=== PATIENT | female | born 2000 | race Caucasian/White ===

== ENCOUNTER → 2019-10-10 | Outpatient (CLI) | payer OTHER ==
[2019-10-10 13:18] LABS: HEMATOCRIT 39.4 % (36.0-47.0); HEMOGLOBIN 13.5 g/dl (12.0-15.5); MEAN CORPUSCULAR HEMOGLOBIN 30.1 pg (27.0-33.0); MEAN CORPUSCULAR HGB CONC 34.3 g/dl (32.0-36.5); MEAN CORPUSCULAR VOLUME 87.9 fl (80.0-96.0); PLATELET COUNT, AUTOMATED 316 10^3/uL (150-450); RED BLOOD COUNT 4.48 10^6/uL (4.00-5.40); WHITE BLOOD COUNT 14.6 10^3/uL (4.0-10.0)
== END ==
LOC: M LAB 11:44
PROVIDERS: ATTEND Obstetrics & Gynecology
DX: Z34.83 Encounter for supervision of other normal pregnancy, third trimester (principal)

== ENCOUNTER 2019-10-31 21:49 | Inpatient (IN) | payer OTHER ==
[~2019-10-31] VITALS: Ht 170.2 cm; Wt 133.2 kg
[2019-10-31 22:09] VITALS: BP 170/91
[2019-10-31] MEDS ORDERED: PRENTAB9 PO (22:14)
[2019-10-31 22:25] VITALS: BP 173/87
[2019-10-31] MEDS ORDERED: LR 1,000 ML IV SCH (22:30)
[2019-10-31 22:40] VITALS: BP 186/88
[2019-10-31 22:56] VITALS: BP 175/98
[2019-10-31] MEDS ORDERED: NS 1,000 ML IV STA (23:08)
[2019-10-31] MEDS ORDERED: LABETALOL 100MG/20ML VIAL IV STA (23:08)
[2019-10-31] MEDS ORDERED: HumuLIN R (REGULAR) INSULIN (NovoLIN R) **100U/ML** PER UNIT SC STA (23:08)
[2019-10-31 23:25] VITALS: BP 167/106
[2019-10-31 23:29] LABS: HEMATOCRIT 38.7 % (36.0-47.0); MEAN CORPUSCULAR HEMOGLOBIN 29.2 pg (27.0-33.0); MEAN CORPUSCULAR HGB CONC 33.6 g/dl (32.0-36.5); PLATELET COUNT, AUTOMATED 284 10^3/uL (150-450); RED BLOOD COUNT 4.45 10^6/uL (4.00-5.40); WHITE BLOOD COUNT 12.4 10^3/uL (4.0-10.0)
[2019-10-31 23:59] VITALS: BP 147/76
[2019-11-01] VITALS (46 sets, daily range): BP systolic 105–181; BP diastolic 53–103
[2019-11-01 00:01] LABS: ALBUMIN 2.5 GM/DL (3.2-5.2); ALT/SGPT 17 U/L (12-78); BILIRUBIN,TOTAL 0.2 MG/DL (0.2-1.0); BLOOD UREA NITROGEN 15 MG/DL (7-18); CALCIUM LEVEL 8.8 MG/DL (8.5-10.1); CARBON DIOXIDE LEVEL 20 MEQ/L (21-32); CHLORIDE LEVEL 108 MEQ/L (98-107); CREATININE FOR GFR 0.79 MG/DL (0.55-1.30); GLOMERULAR FILTRATION RATE > 60.0 (>60); GLUCOSE, FASTING 201 MG/DL (70-100); POTASSIUM SERUM 4.8 MEQ/L (3.5-5.1); SODIUM LEVEL 138 MEQ/L (136-145); TOTAL PROTEIN 6.3 GM/DL (6.4-8.2)
[2019-11-01] MEDS ORDERED: CALCIUM CARBONATE 500 MG CHEW U/D As Ordered ONE (03:26)
[2019-11-01] MEDS ORDERED: ACETAMINOPHEN 500 MG TAB As Ordered ONE (03:26)
[2019-11-01] MEDS ORDERED: CALCIUM CARBONATE 500 MG CHEW U/D PO ONE (03:30)
[2019-11-01] MEDS ORDERED: ACETAMINOPHEN 500 MG TAB PO ONE (03:30)
[2019-11-01] MEDS ORDERED: HumuLIN R (REGULAR) INSULIN (NovoLIN R) **100U/ML** PER UNIT SC STA (06:24)
[2019-11-01] MEDS ORDERED: BICITRA 30ML SOLN UDC PO ONE (07:00)
[2019-11-01] MEDS ORDERED: ceFAZolin SOD 2 GM in IV 1 EA IV ONE (07:00)
[2019-11-01] MEDS ORDERED: AZITHROMYCIN INJ 500 MG, VIAL MATE ADAPTER 1 EACH in D5W 250 ML IV ONE (07:00)
[2019-11-01 07:12] LABS: BASO % 0.2 % (0.0-1.0); EOS # 0.1 10^3/uL (0.0-0.5); EOS % 0.9 % (0.0-3.0); HEMATOCRIT 33.8 % (36.0-47.0); HEMOGLOBIN 11.4 g/dl (12.0-15.5); LYMPH % 23.8 % (24.0-44.0); MEAN CORPUSCULAR HEMOGLOBIN 30.2 pg (27.0-33.0); MEAN CORPUSCULAR HGB CONC 33.7 g/dl (32.0-36.5); MEAN CORPUSCULAR VOLUME 89.4 fl (80.0-96.0); MONO # 0.8 10^3/uL (0.0-0.8); MONO % 6.5 % (0.0-5.0); NEUTROPHILS # 8.7 10^3/uL (1.5-8.5); NEUTROPHILS % 68.1 % (36.0-66.0); PLATELET COUNT, AUTOMATED 235 10^3/uL (150-450); RED BLOOD COUNT 3.78 10^6/uL (4.00-5.40); WHITE BLOOD COUNT 12.8 10^3/uL (4.0-10.0)
[2019-11-01 07:21] LABS: ALT/SGPT 17 U/L (12-78); BILIRUBIN,TOTAL 0.1 MG/DL (0.2-1.0); GLOMERULAR FILTRATION RATE > 60.0 (>60); LDH LACTATE DEHYDROGENASE 203 U/L (84-246); URIC ACID 5.2 MG/DL (2.6-6.0)
[2019-11-01 07:42] LABS: AMPHETAMINES URINE REFLEX NEGATIVE (NEGATIVE); BARBITURATES URINE REFLEX NEGATIVE (NEGATIVE); BENZODIAZEPINES URINE REFLEX NEGATIVE (NEGATIVE); CANNABINOIDS URINE REFLEX NEGATIVE (NEGATIVE); COCAINE METABOLITE URINE REFLE NEGATIVE (NEGATIVE); METHADONE URINE REFLEX NEGATIVE (NEGATIVE); OPIATES URINE REFLEX NEGATIVE (NEGATIVE); PHENCYCLIDINE URINE REFLEX NEGATIVE (NEGATIVE)
[2019-11-01] MEDS ORDERED: NS 1,000 ML IV SCH (08:45)
[2019-11-01] MEDS ORDERED: INSULIN IV RATE CHANGE DOCUMENTATION ML/HR XX SCH (08:45)
[2019-11-01] MEDS ORDERED: INSULIN HUMAN REGULAR 100 UNITS in NS 99 ML IV SCH (08:45)
[2019-11-01] MEDS ORDERED: LABETALOL 100 MG TAB PO SCH (09:00)
[2019-11-01] MEDS: INSULIN HUMAN REGULAR 100 UNITS in NS 99 ML IV SCH ×2 (09:27→12:02)
--- NOTE | 2019-11-01 09:52 | HPE ---
DATE OF ADMISSION: 11/01/2019 HISTORY: Merna is a 19-year-old female, 1, para 0, with an expected date of confinement (EDC) of 12/10/2019 based on an 8 week 1 day ultrasound, with estimated gestational age (EGA) 34-2/7 weeks gestation who presented to labor and delivery with complaints of not feeling well with severe headache. The patient has a history of gestational diabetes for which she is very noncompliant. She recently had a 24-hour urine collection that shows an elevated urine total protein of 1073. Upon evaluation in labor and delivery, she was found to have severely elevated blood pressures in the range of 167/106, 175/98 and 186/88. She received one dose of IV labetalol in labor and delivery. Her blood pressure did drop to 147/76 after that dose. Her headache continued. Upon further evaluation, she was found to have an elevated AST at 38 and a spot creatinine protein ratio of 0.5. Given this finding, decision was made to admit the patient. Her full record was reviewed. The patient has had extensive counseling in the office and she had many times requested delivery via section and even though the risks and benefits were discussed with her she was pretty adamant that she wanted to have delivery via section. LABS: Reviewed. Blood type blood type is A+. Rubella immune. Hepatitis negative. HIV negative. GC and chlamydia negative. GBS unknown. PAST MEDICAL HISTORY: Significant for asthma and prior history of meningitis. PAST SURGICAL HISTORY: Tonsillectomy, cholecystectomy, excision of an ovarian cyst, and appendectomy. FAMILY HISTORY: Significant for polycystic ovarian syndrome and meningitis as well as diabetes and muscular dystrophy. SOCIAL HISTORY: The patient denies any alcohol, drug or cigarette smoking. REVIEW OF SYSTEMS: Significant for the severe headache, not improving with the usual Tylenol and Fioricet. MEDICATIONS: - vitamin ALLERGIES: - ADVIL - BLUE DYE PHYSICAL EXAMINATION: Vital Signs on Admission: Blood pressure 167/106, pulse of 94, respirations 18. Her sugar was 201. On physical exam, an obese female in no acute distress. HEENT: Grossly within normal limits. Abdomen: Soft, nontender, nondistended. Extremities: No clubbing or cyanosis. +1 to +2 lower extremity edema. Deep tendon reflexes 2/4 bilaterally. Vaginal Exam: Cervix is closed, thick and posterior. The fetus at -3 to -4 in a vertex position. LABS: Reviewed. Glucose 201, uric acid of 5, AST of 38, ALT of 17, WBC of 12.4 and platelet of 284. Spot creatinine and protein ratio 0.5, total protein on 24- hour urine specimen resulted on 10/31/2019 was 1073. ASSESSMENT: 1. Severe preeclampsia, remote from delivery. 2. Gestational diabetes, noncompliant. 3. Obesity. 4. Requesting delivery via primary section. PLAN: The patient is being admitted to labor and delivery. A phone consult was done with Dr. Kruger at the center and the case discussed in detail. We both agreed not to proceed with steroids at this point given the patient's status and gestational age. Given that she has severe preeclampsia and remote from delivery and her request for delivery via primary section, we will proceed with delivery via primary section. Labetalol 100 mg twice a day will be started while we wait for the section. If the patient's blood pressures increase in the severe range, will consider IV labetalol or labetalol IV drip. The case was discussed with the patient in great details, the risks and benefits of delivery discussed, especially in light of prematurity and her history of diabetes. Neonatology notified. Will await delivery. THEO
[2019-11-01] MEDS ORDERED: KETOROLAC 60 MG/2 ML VIAL As Ordered ONE (09:53)
[2019-11-01] MEDS ORDERED: ONDANSETRON 4MG/2ML VIAL As Ordered ONE (09:53)
[2019-11-01] MEDS ORDERED: OXYTOCIN INJ 10 UNITS/ML VIAL (J2590) As Ordered ONE (09:53)
[2019-11-01] MEDS ORDERED: fentaNYL 100 MCG/2 ML INJECTION (J3010) As Ordered ONE (09:53)
[2019-11-01] MEDS ORDERED: dexameTHASONE 4 MG/ML 1ML VIAL (J1100 PER 1MG) As Ordered ONE (09:53)
[2019-11-01] MEDS ORDERED: MORPHINE PRES-FREE INJ 10 MG/10 ML VIAL (J2274) As Ordered ONE (09:54)
[2019-11-01] MEDS ORDERED: MEASLES,MUMPS,RUBELLA VACCINE INJ (MMR-II) (90707) SC SCH (10:45)
[2019-11-01] MEDS ORDERED: MOM 30ML SUSPENSION UDC PO PRN (10:45)
[2019-11-01] MEDS ORDERED: PERCOCET 5MG/325MG TAB PO PRN ×2 (10:45→12:30)
[2019-11-01] MEDS ORDERED: RHOGAM 300 MCG (1500 IU) INJ (J2790) IM SCH (10:45)
[2019-11-01] MEDS ORDERED: NALOXONE INJ 0.4MG/1ML VIAL (J2310 PER 1MG) IV PRN ×2 (10:56)
[2019-11-01] MEDS ORDERED: diphenhydrAMINE 50MG/ML VIAL (J1200) IV PRN (10:56)
[2019-11-01] MEDS ORDERED: NALBUPHINE HCL 10 MG/ML AMP (J2300) IV PRN (10:56)
[2019-11-01] MEDS ORDERED: ONDANSETRON 4MG/2ML VIAL IV PRN ×2 (10:56→12:30)
[2019-11-01] MEDS ORDERED: METOCLOPRAMIDE INJ 10MG/2ML VIAL (J2765 PER 1) IV PRN (10:56)
[2019-11-01] MEDS ORDERED: ATROPINE SULF 0.4 MG/ML 1ML VIAL (J0461) As Ordered ONE (11:20)
[2019-11-01] MEDS ORDERED: ePHEDrine SULFATE 25 MG/5 ML(5MG/ML) SYRINGE As Ordered ONE (11:20)
[2019-11-01 11:22] LABS: CORD GAS ABE A -7.5; CORD GAS ABE V -3.9; CORD GAS HCO3 V 23.8 MEQ/L; CORD GAS O2 SAT A 28.6 %; CORD GAS O2 SAT V 43.7 %; CORD GAS PCO2 A 62.1 mmHg; CORD GAS PCO2 V 53.7 mmHg; CORD GAS PH A 7.167 UNITS; CORD GAS PH V 7.265 UNITS; CORD GAS PO2 A 18.4 mmHg; CORD GAS PO2 V 21.9 mmHg; CORD GAS TCO2 A 23.9 MEQ/L; CORD GAS TCO2 V 25.5 MEQ/L
[2019-11-01] MEDS ORDERED: MAGNESIUM SULFATE 4% INJ 20GM/500ML (40MG/ML) As Ordered ONE (11:50)
[2019-11-01] MEDS: MAG Sulf (OBGYN) 20GM/500ML 20,000 MG in IV 1 EA IV SCH ×2 (11:59→22:08)
[2019-11-01] MEDS ORDERED: LR 1,000 ML IV SCH (12:30)
[2019-11-01] MEDS ORDERED: fentaNYL 100 MCG/2 ML INJECTION (J3010) IV PRN (12:30)
[2019-11-01] MEDS: PERCOCET 5MG/325MG TAB PO PRN ×2 (14:30→20:17)
[2019-11-01] MEDS: DOCUSATE SODIUM 100 MG CAP PO SCH (20:16)
[2019-11-01] MEDS: LABETALOL 100 MG TAB PO SCH (20:16)
[2019-11-01] MEDS: HEPARIN SOD (PORCINE) 5000UNITS/ML VIAL (J1644 PER 1000UNITS) SQ SCH (22:11)
[2019-11-01] MEDS: IBUPROFEN 800 MG TAB PO SCH (22:42)
[2019-11-02] VITALS (16 sets, daily range): BP systolic 117–143; BP diastolic 55–67
[2019-11-02] MEDS: PERCOCET 5MG/325MG TAB PO PRN ×3 (02:21→15:06)
[2019-11-02 06:17] LABS: HEMATOCRIT 33.1 % (36.0-47.0); HEMOGLOBIN 11.4 g/dl (12.0-15.5); MEAN CORPUSCULAR HEMOGLOBIN 30.6 pg (27.0-33.0); MEAN CORPUSCULAR HGB CONC 34.4 g/dl (32.0-36.5); MEAN CORPUSCULAR VOLUME 88.7 fl (80.0-96.0); PLATELET COUNT, AUTOMATED 246 10^3/uL (150-450); RED BLOOD COUNT 3.73 10^6/uL (4.00-5.40); WHITE BLOOD COUNT 11.7 10^3/uL (4.0-10.0)
[2019-11-02] MEDS: IBUPROFEN 800 MG TAB PO SCH ×2 (06:33→13:35)
[2019-11-02] MEDS: MAG Sulf (OBGYN) 20GM/500ML 20,000 MG in IV 1 EA IV SCH (07:37)
[2019-11-02] MEDS: HEPARIN SOD (PORCINE) 5000UNITS/ML VIAL (J1644 PER 1000UNITS) SQ SCH ×3 (09:00→21:01)
[2019-11-02] MEDS: PRENATAL VITAMINS CHEWABLE TABLET PO SCH (09:03)
[2019-11-02] MEDS: DOCUSATE SODIUM 100 MG CAP PO SCH ×2 (09:05→21:00)
[2019-11-02] MEDS: LABETALOL 100 MG TAB PO SCH ×2 (09:05→21:00)
[2019-11-02] MEDS: MORPHINE 4 MG/ML 1ML VIAL/SYRINGE (J2270) IV PRN ×2 (18:18→20:27)
[2019-11-02] MEDS ORDERED: KETOROLAC 60 MG/2 ML VIAL IM PRN (21:15)
[2019-11-02] MEDS: KETOROLAC 30 MG/ML 1ML VIAL IM PRN (21:45)
[2019-11-03] MEDS: PERCOCET 5MG/325MG TAB PO PRN ×2 (00:10→07:22)
[2019-11-03 02:40] VITALS: BP 121/65
[2019-11-03] MEDS: KETOROLAC 30 MG/ML 1ML VIAL IM PRN ×2 (04:07→10:16)
[2019-11-03 05:51] VITALS: BP 132/78
[2019-11-03] MEDS ORDERED: DOCU100C16 PO (09:23)
[2019-11-03] MEDS ORDERED: ONDA-83 PO (09:23)
[2019-11-03] MEDS ORDERED: PERCOCET PO (09:23)
[2019-11-03] MEDS ORDERED: IBUP80TA PO (09:23)
[2019-11-03] MEDS: LABETALOL 100 MG TAB PO SCH (09:25)
[2019-11-03] MEDS ORDERED: BUSP5TA PO (09:25)
[2019-11-03] MEDS: PRENATAL VITAMINS CHEWABLE TABLET PO SCH (09:25)
[2019-11-03] MEDS ORDERED: LABE10TAB PO (09:25)
[2019-11-03] MEDS: DOCUSATE SODIUM 100 MG CAP PO SCH (09:25)
[2019-11-03] MEDS: HEPARIN SOD (PORCINE) 5000UNITS/ML VIAL (J1644 PER 1000UNITS) SQ SCH (09:25)
[2019-11-03 09:29] VITALS: BP 137/73
[2019-11-03] MEDS ORDERED: busPIRone 5 MG TAB PO ONE (10:00)
[2019-11-03] MEDS ORDERED: IBUPROFEN 800 MG TAB PO SCH (18:00)
--- NOTE | 2019-11-05 15:58 | RO ---
DATE OF PROCEDURE: 11/01/2019 Merna is a 19-year-old female, 1, para 0, was admitted at 34-2/7 weeks gestation with a history of gestational diabetes, noncompliant, now developed severe preeclampsia remote from delivery. After extensive counseling in center consult a decision was made to proceed with delivery via section. PREOPERATIVE DIAGNOSES: 1. Intrauterine at 34-2/7 weeks gestation. 2. Severe preeclampsia remote from delivery. 3. Gestational diabetes, noncompliance. POSTOPERATIVE DIAGNOSES: 1. Intrauterine at 34-2/7 weeks gestation. 2. Severe preeclampsia remote from delivery. 3. Gestational diabetes, noncompliance. PROCEDURE: Primary low transverse section via Pfannenstiel incision. ANESTHESIA: Spinal. SURGEON: Dr. Matta DEALER ACCOUNTS INVESTIGATOR: Dr. Santo COMPLICATIONS: None. ESTIMATED BLOOD LOSS: 500 mL. FINDINGS: Live male infant in occiput transverse position with a cord around the body times one. 8, 9. weight 7 pounds 15 ounces. Normal-appearing placenta. Normal tubes and ovaries. DESCRIPTION OF PROCEDURE: After obtaining informed consent, the patient was taken to the operating room where spinal anesthetic was found to be adequate. She was then draped and prepped in the usual sterile fashion in the supine position. At this point, with the help of Kiara Santo MD, the incision was carried down to the fascia. Fascia was incised in midline fashion and carried through laterally. Superior aspect of the fascia was then grasped with Rochelle clamps, tented off and dissected off the rectus muscle sharply. The inferior aspect was dissected off in a similar fashion. Rectus muscles midline fashion. Perineum identified. Peritoneal cavity entered bluntly. Superior and inferior dissection of the peritoneum was then done with good visualization of the bladder. At this point, a Mobius skin retractor was placed. A low transverse uterine incision was made. was delivered in atraumatic fashion. Nose and mouth bulb suctioned. Cord doubly clamped and cut, and was handed over to the waiting warmer. Cord blood and cord gas were sent. Placenta removed manually. Uterus cleared of all clot and debris, and the uterine incision was then repaired in two separate layers of #0 Vicryl sutures. All superficial bleeders coagulated. Pelvis copiously irrigated with normal saline. Peritoneum closed in a running fashion using #2-0 Vicryl. Fascia closed in two separate segment of #0 Vicryl sutures. Steri-Strips placed. The patient tolerated procedure well. She was then transferred to recovery room in stable condition.
== END 2019-11-03 12:30 | disposition home or self-care (01) | DRG 773 ==
LOC: M LDO 21:49 → M LDI 11-01 07:09 → M OBS 11-02 14:17
PROVIDERS: ADMIT Obstetrics & Gynecology; ATTEND Obstetrics & Gynecology
PROC: 10D00Z1 Extraction of Products of Conception, Low, Open Approach (ICD-10-PCS; principal; 2019-11-01 11:18)
DX: O14.14 Severe pre-eclampsia complicating childbirth (principal); Z3A.34 34 weeks gestation of pregnancy; O24.429 Gestational diabetes mellitus in childbirth, unspecified control; O99.214 Obesity complicating childbirth; E66.9 Obesity, unspecified; Z91.19 Patient's noncompliance with other medical treatment and regimen; Z37.0 Single live birth; O69.82X0 Labor and delivery complicated by other cord entanglement, without compression, not applicable or unspecified; O32.2XX0 Maternal care for transverse and oblique lie, not applicable or unspecified

== ENCOUNTER → 2019-10-31 | Outpatient (REF) | payer OTHER ==
[~2019-10-31] MED LIST: BUSP5TA PO; DOCU100C16 PO; IBUP80TA PO; LABE10TAB PO; ONDA-83 PO; PERCOCET PO; PRENTAB9 PO
[2019-10-31 19:53] LABS: URINE TOTAL PROTEIN 107.3 MG/DL (0-12)
== END ==
LOC: M LAB REF 17:30
PROVIDERS: ATTEND Obstetrics & Gynecology
DX: O24.410 Gestational diabetes mellitus in pregnancy, diet controlled (principal); R80.9 Proteinuria, unspecified

== ENCOUNTER 2020-08-01 19:26 | Emergency (ER) | payer OTHER ==
[~2020-08-01] VITALS: Ht 170.2 cm; Wt 115.9 kg
[~2020-08-01 19:26] MED LIST changes: +LABE100T4 PO; -LABE10TAB PO
--- OUTSIDE RECORDS SUMMARY | 2020-08-01 19:33 | CCD | Continuity of Care Document ---
Author Author Merna PRESTON MD Organization Unknown Address [address] [place] [address] Phone [phone] Care Team Providers Care Computer Systems Auditor Name Role Phone Kody MattaM [phone] Problems Active Problems Provider Date Polycystic ovary syndrome Myranda Preston MD Onset: 020 Social History Type Date Description Comments Sex Unknown Tobacco Use Start: Unknown Never Smoked Cigarettes ETOH Use Occasionally consumes alcohol Allergies, Adverse Reactions, Alerts Description No Known Drug Allergies Medications Active Medications SIG Qnty Indications Ordering Provide r Date Metformin HCL ER 500mg Tablets ER 24HR 4 tab by mouth daily 360tabs E28.2 Myranda Preston MD 0 Zovia 35 (28) 1-35mg-mcg Tablets 1 po daily 168tabs E28.2 Myranda Preston MD 06/18/2020 Prozac 20mg Capsules 1 by mouth every day Unknown Immunizations Description No Information Available Vital Signs Date Vital Result Comment 06/18/2020 3:01pm BP Systolic 132 mmHg BP Diastolic 70 mmHg Heart Rate 105 /min Body Temperature 97.0 F Height 66 inches 5'6" Weight 308.00 lb BMI (Body Mass Index) 49.7 kg/m2 O2 % BldC Oximetry 97 % Results Description No Information Available Procedures Description No Information Available Medical Devices Description No Information Available Encounters Description No Information Available Assessments Date Code Description Provider 06/18/2020 E28.2 Polycystic ovarian syndrome Licha Preston MD Plan of Treatment 06/18/2020 - Myranda Preston MD* E28.2 Polycystic ovarian syndrome* New Medication:* Metformin HCL ER 500 mg - 4 tab by mouth daily * Zovia 135 (28) 1-35 mg-mcg - 1 po daily * New Labs:* Testosterone Free & Total, Scheduled: 06/18/20 * FSH & LH Eval, Scheduled: 06/18/20 * 17 Hydroxy Progesterone, Scheduled: 06/18/20 * Thyroid Stimulating Hormone, Scheduled: 06/18/20 * Basic Metabolic Profile, Scheduled: 06/18/20 * Follow up:* end june- - PCOS Functional Status Description No Information Available Mental Status Description No Information Available Referrals Description No Information Available
--- OUTSIDE RECORDS SUMMARY | 2020-08-01 19:33 | CCD | Continuity of Care Document ---
Author Author Merna PRESTON MD Organization Unknown Address [address] [place] [address], [address] [address] Phone [phone] Care Team Providers Care Prevocational/Rehabilitation Counselor Name Role Phone Kody MattaM [phone] Problems Active Problems Provider Date Morbid obesity Myranda Preston MD Onset: 06/18/2020 Polycystic ovary syndrome Myranda Preston MD Onset: 020 Social History Type Date Description Comments Sex Unknown Tobacco Use Start: Unknown Never Smoked Cigarettes ETOH Use Occasionally consumes alcohol Tobacco Use Start: Unknown Patient has never smoked Smoking Status Reviewed: 06/18/20 Patient has never smoked Allergies, Adverse Reactions, Alerts Description No Known Drug Allergies Medications Active Medications SIG Qnty Indications Ordering Provide r Date Metformin HCL ER 500mg Tablets ER 24HR 4 tab by mouth daily 360tabs E28.2 Myranda Preston MD 0 Zovia 1/35 (28) 1-35mg-mcg Tablets 1 po daily 168tabs [...] Medical Devices Description No Information Available Encounters Type Date Location Provider Dx Diagnosis Office Visit 06/18/2020 2:45p DR. Myranda Preston MD E 28.2 Polycystic ovarian syndrome E66.01 Morbid (severe) obesity due to excess calories Assessments Date Code Description Provider 06/18/2020 E28.2 Polycystic ovarian syndrome Licha Preston MD 06/18/2020 E66.01 Morbid (severe) obesity due to e xcess calories Myranda Preston MD Plan of Treatment Future Appointment(s):* 07/16/2020 11:15 am - Shikha Browning, [employer] at DR. Myranda Preston 06/18/2020 - Myranda Preston MD* E28.2 Polycystic ovarian syndrome* New Medication:* Metformin HCL ER 500 mg - 4 tab by mouth daily * Zovia (28) 1-35 mg-mcg - 1 po daily * New Labs:* Testosterone Free & Total, Scheduled: 06/18/20 * FSH & LH Eval, Scheduled: 06/18/20 * 17 Hydroxy Progesterone, Scheduled: 06/18/20 * Thyroid Stimulating Hormone, Scheduled: 06/18/20 * Basic Metabolic Profile, Scheduled: 06/18/20 * Comments:* Per HPI- she reports lifelong hx of PCOS. Previous metformin use. GDM during . Long stand obesity.Marked acanthosis over neck.She has some menstrual cycles after delivery of son , October 2019. Now amenorrheic for months.PLAN1- restart metformin per protocol. Escalate to 4 tablets per day2- at follow up consider phentermine to get her to a better weight goal.Based on marked acanthosis she is high risk for impending Diabetes. Would be a good candidate for Saxenda- unsure if part of her med formulary.3- restart bcp.previous use of Zovia ( low progestational activity) * Follow up:* [facility] end of june- - PCOS * E66.01 Morbid (severe) obesity due to excess calories* Comments:* Life long obesity. Needs weight loss. Would be a good candidate for weight loss medication.Report "positive blood test for gluten allergy"Advised her to watch gluten free diet carefully because she may end up eating simple starches. Functional Status Description No Information Available Mental Status Description No Information Available Referrals Description No Information Available
--- OUTSIDE RECORDS SUMMARY | 2020-08-01 19:34 | CCD ---
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 ................................. : F Unsigned transcriptions are preliminary reports and do not represent a medical or legal document CT ABD & PELVIS W/ IV ONLY [id number] COMPLETE:06/29/20 22:16 KJE 1999 Reason(s): LUQ, left flank pain w diarrhea x [address] OF THE ABDOMEN AND PELVIS WITH CONTRAST: INDICATION: Left upper quadrant pain and left flank pain with diarrhea x3 days. FINDINGS: The chest base is clear. There is fatty infiltration of the liver. Normal contrast CT appearance of the spleen, pancreas, adrenal glands and kidneys. The patient is status post cholecystectomy. The visualized bowel is normal in caliber. No bowel wall thickening. The appendix appears surgically absent. The bladder and pelvic organs appear normal. No acute osseous abnormality. No lymphadenopathy. There are a few prominent lymph nodes in the right lower quadrant and mesenteric root as well as the left upper quadrant. IMPRESSION: 1. Findings most likely represent mesenteric adenitis. No other acute intra-abdominal process visualized. 2. Fatty liver. While performing the above CT examination, radiation dose reduction was accomplished utilizing automated exposure control, adjusting of the mA and kV based on the patient's b coreen size and/or the use of imperative reconstructive techniques. Page 1 of 2 [place] [address] PHONE: [phone] FAX: [phone] Name .................. : GRIFFIN Taylor Acct Number.................. : [id number] ROOM. ................. : -04 MR Number ................... : [id number] Stay type ............. : E/R Discharge Date......... ... : 06/30/20 Admit Date ......... : 06/29/20 Admit Phys .................... : JOSELUIS BRADY Date of ....... : 2000 Family Phys ................... : NON STAFF Phone .................. : [phone] Age ................................ : 20 Film# .................. .:[id number] Sex ................................. : F Unsigned transcriptions are preliminary reports and do not represent a medical or legal document CT ABD & PELVIS W/ IV ONLY [id number] COMPLETE:06/29/20 22:16 KJE 1999 Reason(s): LUQ, left flank pain w diarrhea x [address] dose: 468.6 mGycm Contrast agent in mL: 75 Isovue 370 Method of administration: Intravenous Electronically Reviewed and Signed By Juanjose Camilo M.D. , 06/30/20 09:21, [facility] Transcribe Initials: LIZZETTE , Transcribe Date: 06/30/20 02:47, Dictation Date: Copy for: EMERGENCY DEPT via modem Copy for: 710 MED REC DISCHARGED Page 2 of 2 Name Value Range Interpretation Code Description Data Shannon rce(s) Supporting Document(s) ID Date Data Source [id number] 06/29/2020 07:11:00 PM EST [facility] 1 OrderSheet [facility] Emergency Department [address] [place] [address] Phone #: ext- [phone] 06/29/2020 19:00 Patient: YOSEF MOYA Sex: F : 2000 Age: 20yWEIGHT:131.5 kg (S) HEIGHT:67 inches (S) BMI:45.4ALLERGIES: NoneCHIEF COMPLAINT: abdominal painDIAGNOSIS: Mesenteric lymphadenitis, Diabetes mellitusLAB ORDERSOrder Description Priority Entered Acknowledged InitialedUrinalysis (Clean STAT 19:15 06/29/2020 19:15 Angelia Fischer) Minerva Fischer R.N.; R.NNiranjan Verbal order per; Dimas Huggins M.D.CBC w Diff STAT 19:28 06/29/2020 19:38 Joseluis Martinez Riccardo Amber R.N. M.D.;CMP STAT 19:28 06/29/2020 19:38 Joseluis Martinez Riccardo Amber R.N. M.D.;Lipase STAT 19:28 06/29/2020 19:38 Joseluis Martinez Riccardo Amber R.N. M.D.;Beta-HCG, Qual STAT 19:28 06/29/2020 19:38 MichelleSerum Dimas Huggins R.N., M.D.;Lactic Acid STAT 19:28 06/29/2020 19:38 Joseluis Martinez Riccardo Amber R.N. M.D.;Culture, Urine STAT 20:50 06/29/2020 20:56 Michelle(Urine, Clean Dimas Huggins R.N.Catch) Zion;Lactic Acid STAT 22:52 06/29/2020 23:08 Joseluis Dang Riccardo Laura R.N. M.D.;DIAGNOSTIC STUDY ORDERSOrder Description Priority Entered Acknowledged InitialedCT Abd PEL W/ IV STAT 19:29 06/29/2020 Ack'd: 19:38 21:52 Michelle,Contrast Only Dimas Huggins Amber Amber R.N. 2 OrderSheet [facility] Emergency Department [address] [place] [address] Phone #: ext- [phone] 06/29/2020 19:00 Patient: YOSEF MOYA Sex: F : 2000 Age: 20y(Oxygen?(No)) M.D.; R.N.(IV?(Yes)) Reason for Study: LUQ, left flank pain w diarrhea x 3 daysMEDICATION/IV/DRIP/FLUID ORDERSOrder Description Priority Entered Acknowledged InitialedNS IV 1000 mL 19:28 06/29/2020 Ack'd: 19:38 19:49 Michelle,Bolus: : Bolus 1000 Dimas Huggins Amber Amber R.N.mL (X1) M.D.; R.N.Phenergan IV 25mg 19:28 06/29/2020 Ack'd: 19:38 19:50 Martinez,in 50mL NS, give Dimas Huggins Amber Amber R.N.wide open: 25 mg M.D.; R.N.(NOW x1, HIGHALERTMEDICATION)Pepcid IVPB 20 19:28 06/29/2020 Ack'd: 19:38 20:13 Martinez,mg/50mL (NOW x1, TurDimas ortiz Amber Charisse R.N.Infuse over 30 M.D.; R.N.minutes.)NS IV 1000 mL 19:58 06/29/2020 Ack'd: 20:08 21:23 Michelle,Bolus: : Bolus 1000 Dimas Huggins Amber Amber R.N.mL (X1) Zion; R.N.Morphine IVP 4 mg 21:44 06/29/2020 Ack'd: 21:52 22:19 Michelle(HIGH ALERT Dimas Huggins Amber Amber R.N.MEDICATION) Zion; R.N.NS IV 1000 mL 23:10 06/29/2020 23:12 Jenna, Ruius: : Bolus 1000 Micheline Dang R.N.mL (X1) R.N.; Verbal order per; Dimas Huggins M.D.GENERAL ORDERSOrder Description Priority Entered Acknowledged InitialedNPO 19:28 06/29/2020 19:38 Joseluis Martinez Riccardo Amber R.N. M.D.;Saline Lock 19:28 06/29/2020 19:38 Joseluis Martinez Riccardo Amber R.N. M.D.; 3 OrderSheet [facility] Emergency Department [address] [place] [address] Phone #: ext- [phone] 06/29/2020 19:00 Patient: YOSEF MOYA Sex: F : 2000 Age: 20y[Electronically signed by Humera West R.N. (00:03 06/30/2020)][Electronically signed by Dimas Huggins M.D. (00:23 06/30/2020)][Electronically locked by Humera West R.N. (00:03 06/30/2020)] Name Value Range Interpretation Code Description Data Shannon rce(s) Supporting Document(s) ID Date Data Source [id number] 06/29/2020 07:11:00 PM [facility] 1 Medication Reconciliation Report [facility] Emergency Department [address] [place] [address] Phone #: ext- [phone] 06/29/2020 19:00 Patient: YOSEF MOYA Sex: F : 2000 Age: 20yWeight: 131.5 kgHeight/Length: 67 in.BMI: 45.4ALLERGIES: NoneThe patient's Home Medications are listed below:CHANGE THE FOLLOWING MEDICATIONS TO: metFORMIN HCl Oral : Tablet 500 mg, 2x a dayCONTINUE TAKING THE FOLLOWING MEDICATIONS: Control Pills PROzac Oral (20 mg), dailyThe source(s) of the original Home Medication information:Not obtained.The following Medications were given to the patient in the Emergency Department:NS [IV] IV Fluids bolus 1000 mL wide open, administered: 19:39 1Phenergan [IVPB] IVPB bolus 25 mg wide open, then 25 mg, administered: 19:49 1Pepcid [IVPB] IVPB bolus 0, then 20 mg 100 mL/hr, administered: 20:13 06/29/2020NS [IV] IV Fluids bolus 1000 mL wide open, administered: 21:23 06/29/2020Morphine [IVP] IVP 4 mg, administered: 22:19 06/29/2020NS [IV] IV Fluids bolus 1000 mL over 1 hour(s), administered: 23:12 06/29/2020The following Medications were prescribed to the patient:None. Name Value Range Interpretation Code Description Data Shannon rce(s) Supporting Document(s) ID Date Data Source [id number] 06/29/2020 07:11:00 PM [facility] 1 Medication Administration Record [facility] Emergency Department [address] [place] [address] Phone #: ext- [phone] 06/29/2020 19:00 Patient: YOSEF MOYA Sex: F : 2000 Age: 20yWeight: 131.5 kgHeight/Length: 67 inBMI: 45.4ALLERGIES: None Date/Time Medication Administered Medication OrderedStart NS [IV] NS IV 1000 mL Bolus: : Bolus [id number]:39 06/29/2020 Dose: IV Fluids mL (X1)Charisse Martinez R.NNiranjan Bolus: 1000 mL wide open---- Dispensed: 1000 mL bagStop Site: #1 right AC21:17 06/29/2020Charisse Martinez R.NNiranjanStart PHENERGAN [IVPB] Phenergan IV 25mg in 50mL NS,19:49 06/29/2020 Dose: 25 mg IVPB give wide open: 25 mg (NOW x1,Charisse Martinez R.NNiranjan B olus: 25 mg wide open HIGH ALERT MEDICATION)---- Dispensed: 50 mL bagStop Site: #1 right AC20:12 06/29/2020Charisse Martinez RNiranjanNNiranjanStart PEPCID [IVPB] Pepcid IVPB 20 mg/50mL (NOW20:13 06/29/2020 Dose: 20 mg IVPB x1, Infuse over 30 minutes.)Charisse Martinez RSarkis Rate: 100 mL/hr---- Dispensed: 50 mL bagStop Site: #1 right AC20:45 06/29/2020Charisse Martinez RNiranjanNNiranjanStart NS [IV] NS IV 1000 mL Bolus: : Bolus [id number] 06/29/2020 Dose: IV Fluids mL (X1)Charisse Martinez R.NNiranjan Bolus: 1000 mL wide open---- Dispensed: 1000 mL bagStop Site: #1 right AC22:50 06/29/2020Humera West R.NNiranjanGiven MORPHINE [IVP] Morphine IVP 4 mg (HIGH ALERT22:19 06/29/2020 Dose: 4 mg IVP MEDICATION)Charisse Martinez R.N. Site: #1 right ACStart NS [IV] NS IV 1000 mL Bolus: : Bolus [id number]:12 06/29/2020 Dose: IV Fluids mL (X1)Humera West R.N. Bolus: 1000 mL over 1 hour(s)---- Dispensed: 1000 mL bagStop Site: #1 right AC23:55 06/29/2020Humera West R.N. Name Value Range Interpretation Code Description Data Shannon rce(s) Supporting Document(s) ID Date Data Source [id number] 06/29/2020 07:11:00 PM EST [facility] 1 General Instructions [facility] Emergency Department [address] [place] [address] Phone #: ext- [phone] 06/29/2020 19:00 Patient: YOSEF MOYA Sex: F : 2000 Age: 20yAcute mesenteric lymphadenitisChronic, moderately well controlled type 2 diabetes with hyperglycemia.INSTRUCTIONSDrink plenty of fluids. Avoid alcohol and NSAIDS. NSAIDS include aspirin, ibuprofen (Advil) and naproxen(Aleve). Avoid fatty, fried/greasy, lactose-containing (such as milk, cheese and ice cream), salty and spicyfoods. No alcohol. Do not smoke.(PLEASE INCREASE YOUR METFORMIN TO 500 MG TWICE PER DAY AND CHECK YOUR GLUCOSELEVELS AT HOME, WRITING THEM DOWN IN A CALENDAR;FOLLOW UP WITH YOUR FAMILY MD IN 1-2 WEEKS FOR METFORMIN ADJUSTMENT).Warnings: Further evaluation is necessary in order to conduct further tests. It is very important to follow upwith a healthcare provider.GENERAL WARNINGS: Return or contact your physician immediately if your condition worsens orchanges unexpectedly, if not improving as expected, or if other problems arise. SPECIFICALLY, return ifyou develop pain in the abdomen or back, fever, vomiting, the inability to keep fluids down, blood invomitus, blood in diarrhea, fainting or lightheadedness.Your Current Medications: Your current home medications have been reviewed.CHANGE THE FOLLOWING MEDICATIONS TO:metFORMIN HCl Oral : Tablet 500 mg, 2x a day.CONTINUE TAKING THE FOLLOWING MEDICATIONS: Control Pills*.PROzac Oral : Capsule 20 mg, daily.Follow- up:Return to the emergency department as needed. Follow up with your healthcare provider in five dayseven if well. Call for an appointment. Reason for referral: evaluation and treatment. Summary of careprovided to patient via paper.Understanding of the discharge instructions verbalized by patient. Expected course of illness, dischargeinstructions, activity level, diet, follow-up appointment and risks and benefits of treatment reviewed withpatient and understanding verbalized. Agrees to plan of care. ADDITIONAL INFORMATION 2 General Instructions [facility] Emergency Department [address] [place] [address] Phone #: ext- [phone] 06/29/2020 19:00 Patient: YOSEF MOYA Sex: F : 2000 Age: 20yMesenteric AdenitisThe mesentery is a sheet of tissue that attaches the intestines to the belly (abdominal) wall. Lymphnodes are small glands throughout the body. They are part of the system that fights infection.Mesenteric adenitis is swelling of the lymph nodes in the mesentery. It is also called mesentericlymphadenitis. The problem is caused by an infection, or an inflammatory condition, often of theintestines.Mesenteric adenitis can cause these symptoms: Severe pain in the abdomen, which can be all over Pain can be in the lower right side, sometimes mimicking appendicitis Nausea and vomiting Diarrhea Fever Loss of appetite MalaiseThis condition can be hard to diagnose because the pain is often not just in one spot. You may needtests for this reason. Sometimes, the pain shifts to the lower right part of your abdomen. When thishappens, it may seem like appendicitis. This is another reason for testing.The problem most often goes away in a few days. If you have a bacterial infection, you may need totake antibiotics. Medicines may also be given to help relieve pain until the problem calms down.Home care Your healthcare provider may prescribe medicines for pain, nausea, or infection. Follow the healthcare provider's instructions when using these medicines. If you are given medicine for infection, take all of it as directed until it is gone, even if you feel better. Rest until you feel better. To help relieve abdominal pain, soak a towel in warm water and place it on your belly. If you have had diarrhea or vomiting, follow the guidelines you are given for what to eat and drink and what to avoid. Drink plenty of fluids. Don't smoke or drink alcohol. 3 General Instructions [facility] Emergency Department [address] [place] [address] Phone #: ext- [phone] 06/29/2020 19:00 Patient: YOSEF MOYA Sex: F : 2000 Age: 20yFollow-up careFollow up with your healthcare provider, or as advised. It is often very hard to tell mesenteric adenitisapart from appendicitis. So close follow-up is needed.If X-rays were done, a radiologist will look at them. You will be told if there are changes.Call [phone] if any of these occur: Trouble breathing Confusion Very drowsy or trouble awakening Fainting or loss of consciousness Rapid heart rate Chest painWhen to seek medical adviceCall your healthcare provider right away if any of these occur: Fever of 100.4F (38C) or higher, or as directed by your healthcare provider Pain not relieved with medicine, or pain that goes away and returns Pain that is getting worse over time or changing in location Pain that localizes to the right lower abdomen, and not improving or is worsening Severe diarrhea or vomiting Severe headache Few or no stools or gas Little or no urine Leg or foot cramps Small dark red dots on the skin Swelling in the abdomen Bloody stools 4 General Instructions [facility] Emergency Department [address] [place] [address] Phone #: ext- [phone] 06/29/2020 19:00 Patient: YOSEF MOYA Sex: F : 2000 Age: 20y [phone] [employer]. [address] [place] [address], [place] [id number]. All rights reserved. This information is not intended as asubstitute for professional medical care. Always follow your healthcare professional's instructions.Diabetes with High Blood SugarYou have been treated for high blood sugar (hyperglycemia). This may be because of an infection orother illness. Or it may be from eating too many sweets or starches. Or it may be from not takingenough insulin or other diabetes medicine.Home careCheck your blood sugar level at least 2 times a day. Write it down the results. Do this beforebreakfast and before dinner. If you take insulin, also write down your routine insulin dose. Note anyother doses you needed based on your sliding scale or as advised by your healthcare provider. [place] for the next 3 to 5 days.High blood sugar may cause symptoms that you can learn to spot. These include: Peeing often Thirst Headache Breath that smells fruity Nausea or vomiting Belly painIf you have symptoms of high blood sugar, use a blood or urine test to find out what your blood sugarlevel is. If it is above your usual range, use the sliding scale regular insulin dose from your healthcareprovider. Call your provider for advice if you were not given a range for your insulin dose. If yourblood sugar is over 240 mg/dL, check your urine for ketones.Follow-up careFollow up with your healthcare provider, or as advised. You may need to meet with your provider inthe next week. You will likely look at your blood sugar records together. You may need to changeyour dose of insulin or other diabetes medicine.When to seek medical adviceCall your healthcare provider right away if these occur: Symptoms of high blood sugar that don't get better with the treatment your provider advised. 5 General Instructions [facility] Emergency Department [address] [place] [address] Phone #: ext- [phone] 06/29/2020 19:00 Patient: YOSEF MOYA Sex: F : 2000 Age: 20y This is especially true if you also have ketones in your urine. Blood sugar over 300 mg/dl. If you can't reach your healthcare provider, go to a hospital emergency room or urgent care center.Call 911Call 911 if you have any of the following: Confusion Dizziness, lightheadedness, or loss of consciousness Shortness of breath Chest pain Weakness of an arm, leg, or one side of the face Sudden trouble with speech or vision [phone] [employer]. [address] [place] [address]. All rights reserved. This information is not intended as asubstitute for professional medical care. Always follow your healthcare professional's instructions.Diabetes: OverviewDiabetes is a long-term health problem. It means your body doesn't make enough insulin. Or it maymean that your body can't use the insulin it makes. Insulin is a hormone in your body. It lets bloodsugar (glucose) reach the cells in your body. All of your cells need glucose for fuel.When you have diabetes, the glucose in your blood builds up because it can't get into the cells. Thisbuildup is called high blood sugar (hyperglycemia).Your blood sugar level depends on several things. It depends on what kind of food you eat and howmuch of it you eat. It also depends on how much exercise you get, and how much insulin you have inyour body. Eating too much of the wrong kinds of food or not taking diabetes medicine on time cancause high blood sugar. Infections can cause high blood sugar even if you are taking medicinescorrectly.These things can also cause low blood sugar: Missing meals Not eating enough food Unplanned or heavy exercise Taking too much diabetes medicine 6 General Instructions [facility] Emergency Department [address] [place] [address] Phone #: ext- [phone] 06/29/2020 19:00 Patient: YOSEF MOYA Sex: F : 2000 Age: 20yDiabetes can cause serious problems over time if you don't get treated. These problems include: Heart disease Stroke Kidney failure Blindness Nerve pain Loss of feeling in the legs and feet Tissue (gangrene)By keeping your blood sugar under control you can prevent or delay these problems.Normal blood sugar levels are 80mg/dL to 100 mg/dL before a meal. They are less than 180 mg/dL inthe 1 to 2 hours after a meal.Home careFollow these guidelines when caring for yourself at home: Follow the diet your healthcare provider gives you. Take insulin or other diabetes medicine exactly as told to. Watch your blood sugar as you are told to. Keep a log of your results. This will help your provider change your medicines to keep your blood sugar under control. Try to reach your ideal weight. You may be able to cut back on or not have to take diabetes medicine if you eat the right foods and get exercise. Don't smoke. Smoking worsens the effects of diabetes on your circulation. You are much more likely to have a heart attack if you have diabetes and you smoke. Also don't use e-cigarettes or vaping products. Take good care of your feet. If you have lost feeling in your feet, you may not notice an injury or infection. Check your feet and between your toes at least once a day. Use a mirror to check the bottoms of your feet. Wear a medical alert bracelet or necklace. Or carry a card in your wallet that says you have diabetes. This will help healthcare providers give you the right care if you get very ill and can't tell them that you have diabetes.Sick-day plan 7 General Instructions [facility] Emergency Department [address] [place] [address] Phone #: ext- [phone] 06/29/2020 19:00 Patient: YOSEF MOYA Sex: F : 2000 Age: 20yIf you get a cold, the flu, or a bacterial or viral infection, take these steps: Look at your diabetes sick plan and call your healthcare provider as you were told to. You may need to call your provider right away if: o Your blood sugar is above 240 mg/dL while taking your diabetes medicine o Your urine ketone levels are above normal or high o You have been vomiting more than 6 hours o You have trouble breathing or your breath has a fruity smell o You have a high fever o You have a fever for several days and you are not getting better o You get light-headed and are sleepier than usual Keep taking your diabetes pills (oral medicine) even if you have been vomiting and are feeling sick. Call your provider right away. This is because you may need insulin to lower your blood sugar until you recover from your illness. Keep taking your insulin even if you have been vomiting and are feeling sick. Call your provider right away to ask if you need to change your insulin dose. This will depend on your blood sugar results. Check your blood sugar every 2 to 4 hours, or at least 4 times a day. Check your ketones often. Watch them more often if you are vomiting and having diarrhea. Don't skip meals. Try to eat small meals on a regular schedule. Do this even if you don't feel like eating. Drink water or other liquids that don't have caffeine or calories. This will keep you from getting dehydrated. If you are nauseated or vomiting, takes small sips every 5 minutes. To prevent dehydration try to drink a cup (8 ounces) of fluids every hour while you are awake.General careAlways bring a source of fast-acting sugar with you in case you have symptoms of low blood sugar(below 70 mg/dL). At the first sign of low blood sugar, eat or drink 15 to 20 grams of fast-acting sugarto raise your blood sugar. Examples are: 3 to 4 glucose tablets. You can buy these at most drugstores. 4 ounces (1/2 cup) of regular (not diet) soft drinks 4 ounces (1/2 cup) of any fruit juice 8 General Instructions [facility] Emergency Department [address] [place] [address] Phone #: ext- [phone] 06/29/2020 19:00 Patient: YOSEF MOYA Sex: F : 2000 Age: 20y 5 to 6 pieces of hard candy 1 tablespoon of honeyCheck your blood sugar 15 minutes after treating yourself. If it's still below 70 mg/dL, take 15 to 20more grams of fast-acting sugar. Test again in 15 minutes. If it returns to normal (70 mg/dL or above),eat a snack or meal to keep your blood sugar in a safe range. If it stays low, call your doctor or go [facility].If you have had severe low blood sugar episodes, see that someone in your family is trained to giveyou a shot of glucagon. This will raise your blood sugar if you are unconscious and can't eat any ofthe above tablets or foods.Follow-up careFollow- up with your healthcare provider, or as advised. For more information about diabetes, visit theAmerican Diabetes Association website at www.diabetes.org. Or you can call [phone].When to seek medical adviceCall your healthcare provider right away if you have any of these symptoms of high blood sugar thatdon't go away with the above treatment suggestions: Urinating often Drowsiness Thirst Headache Nausea or vomiting Belly (abdominal) pain Eyesight changes Fast breathingAlso call your provider right away if you have any of these signs of low blood sugar and they don't goaway with the above treatment suggestions: Fatigue Headache Shakes Excess sweating 9 General Instructions [facility] Emergency Department [address] [place] [address] Phone #: obb- [phone] 06/29/2020 19:00 Patient: YOSEF MOYA Sex: F : 2000 Age: 20y Hunger Feeling anxious or restless Eyesight changes Drowsiness WeaknessCall 911Call 911 if any of these occur: Chest pain or shortness of breath Dizziness or fainting Weakness of an arm or leg or one side of the face Trouble speaking or seeing Confusion or loss of consciousness [id number] [employer]. [address] [place] [address]. All rights reserved. This information is not intended as asubstitute for professional medical care. Always follow your healthcare professional's instructions.Diet: DiabetesFood is an important tool that you can use to control diabetes and stay healthy. Eating well-balancedmeals in the correct amounts will help you control your blood glucose levels and prevent low bloodsugar reactions. It will also help you reduce the health risks of diabetes. There is no one specific dietthat is right for everyone with diabetes. But there are general guidelines to follow. A registereddietitian (RD) will create a tailored diet approach that's just right for you. He or she will also help youplan healthy meals and snacks. If you have any questions, call your dietitian for advice.Guidelines for successTalk with your healthcare provider before starting a diabetes diet or weight loss program. If youhaven't talked with a dietitian yet, ask your provider for a referral. The following guidelines can helpyou succeed: Select foods from the 6 food groups below. Your dietitian will help you find food choices within each group. He or she will also show you serving sizes and how many servings you can have at each meal. o Grains, beans, and starchy vegetables 10 General Instructions [facility] Emergency Department [address] [place] [address] Phone #: ext- [phone] 06/29/2020 19:00 Patient: YOSEF MOYA Sex: F : 2000 Age: 20y o Vegetables o Fruit o Milk or yogurt o Meat, poultry, fish, or tofu o Healthy fats Check your blood sugar levels as directed by your provider. Take any medicine as prescribed by your provider. Learn to read food labels and pick the right portion sizes. Limit carbohydrates at each meal to help manage your diabetes. The carbohydrates you eat become glucose in the blood. Talk with your healthcare provider about how many grams of carbohydrates are recommended for you at each meal. Eat 3 meals a day, at consistent times. Don't skip meals. If you are hungry between meals, eat a small, low-carbohydrate snack. Talk with your healthcare provider if you drink alcohol. Alcohol can have unpredictable effects on blood glucose. It's also high in empty calories and can raise a type of blood fat called triglycerides. Drink water or calorie-free diet drinks instead. Eat less fat to help lower your risk of heart disease. Use nonfat or low-fat dairy products and lean meats. Avoid fried foods. Use cooking oils that are unsaturated, such as olive, canola, or peanut oil. Don't eat foods with added salt. Salt can contribute to high blood pressure, which can cause heart disease. People with diabetes already have a risk for high blood pressure and heart disease. Stay at a healthy weight. If you need to lose weight, cut down on your portion sizes. But don't skip meals. Exercise is an important part of any weight management program. Talk with your provider about an exercise program that's right for you. For more information about the best diet plan for you, talk with an RD. To find an RD in your area, contact: o Academy of Nutrition and Dietetics www.eatright.org o [place] [employer] [phone] www.diabetes.org [employer]. [address] [place] [address], [place] [address]. All rights reserved. This information is not intended as asubstitute for professional medical care. Always follow your healthcare professional's instructions. You have been given the following additional information: 11 General Instructions [facility] Emergency Department [address] [place] [address] Phone #: ext- [phone] 06/29/2020 19:00 Patient: YOSEF MOYA Sex: F : 2000 Age: 20yAdenitis, MesentericDiabetes with High Blood SugarDiabetes- OverviewDiet: Diabetes(Electronically signed by Dimas Huggins M.D. 06/30/2020 00:23) Name Value Range Interpretation Code Description Data Shannon rce(s) Supporting Document(s) ID Date Data Source [id number] 06/29/2020 07:11:00 PM EST [facility] 1 Clinical Report - Nurses [facility] Emergency Department [address] [place] [address] Phone #: ext- [phone] 06/29/2020 19:00 Patient: YOSEF MOYA Sex: F : 2000 Age: 20yTRIAGEArrived by private vehicle. Historian: patient. Unaccompanied. ( when she lays down she states that theupper part of her left abdis distended).Acuity: LEVEL 3.Chief Complaint: ABDOMINAL PAIN, NAUSEA, VOMITING and DIARRHEA.Alert.Onset. (3 days ago). She has had abdominal pain. The pain is described as located in the LUQ andradiating to the back and associated with nausea, vomiting and diarrhea.Treatment [employer] ATTENDANT:Took Tylenol. (1400).SEPSIS SCREEN: SIRS SCREEN NEGATIVE. SEPSIS SCREEN NEGATIVE. No suspected or confirmedsigns of infection present. --19:06 06/29/20 Minerva Fischer R.N.19:01 06/29/20. BP: 170/107. MAP: 128. HR: 125. RR: 17. O2 saturation: 98%. Temp: 98.7 F. Pain levelnow: 01/26. --19:06 06/29/20 Minerva Fischer R.N.Weight: 131.5 kg stated. Height/Length: 67 inches Per Patient. BMI: 45.4. --19:00 06/29/20 Minerva Fischer R.N.MedicationsmetFORMIN HCl Oral (Tablet 500 mg), daily. --19:02 06/29/20 Minerva Fischer R.N. PROzac Oral (Capsule 20 mg), daily. --19:03 06/29/20 Minerva Fischer R.N. Control Pills. --19:03 06/29/20 Minerva Fischer R.N.AllergiesNone. --19:02 06/29/20 Minerva Fischer R.N.PROBLEMS:Depression.PCOS.Prediabetic. --19:04 06/29/20 Minerva Fischer R.N.Hypertension. --19:38 06/29/20 Dimas Huggins M.D.The following entry was modified by Dimas Huggins M.D., 19:38 06/29/20Hypertension. --19:03 06/29/20 Minerva Fischer R.N..ADDITIONAL SURGERIES: 2 Clinical Report - Nurses [facility] Emergency Department [address] [place] [address] Phone #: ext- [phone] 06/29/2020 19:00 [id number] Sex: [facility] : 2000 Age: 20y Appendectomy. Cholecystectomy. . Cyst removed. --19:04 06/29/20 Minerva Fischer R.N. History PAST MEDICAL HX: Immunizations: up-to-date. Last normal menstrual period- 4 months ago because she had a child 8 months ago. SOCIAL HX: Smoker- current status unknown (social). Occasional alcohol use. No drug use. No recent travel. No known contact with a sick individual. She was offered HIV testing but declined and hepatitis C testing but declined. She has not traveled outside the [place] Infectious disease exposure: No infectious disease exposure. Patient is not a known carrier of tuberculosis, hepatitis, HIV, MRSA or VRE. Patient is not a known carrier of CRE. SELF HARM ASSESSMENT: Self harm assessment was performed. The patient answered "no" to the question(s) "Have you recently felt down, depressed, or hopeless?", "Do you have thoughts of harming or killing yourself?", "Do you have a plan for harming or killing yourself?", "Have you recently had thoughts about harming or killing others?", "Do you have any dangerous items in your possession?", "Have you noticed less interest or pleasure in doing things?", "Are you here because you tried to hurt yourself?" and "Have you ever tried to hurt yourself before today?". ABUSE ASSESSMENT: Abuse assessment. Abuse denied. No suspicion of abuse. No report of abuse. NUTRITIONAL RISK ASSESSMENT: The nutritional risk assessment revealed no deficiencies. FUNCTIONAL ASSESSMENT: Functional assessment: no impairments noted. LEARNING NEEDS ASSESSMENT: The learning needs assessment revealed no barriers. FALL RISK ASSESSMENT: Fall risk assessment completed. No risk factors identified. SKIN INTEGRITY ASSESSMENT: Skin integrity risk assessment completed. No skin integrity risk identified. --19:06 06/29/20 Minerva Fischer R.N. Interventions Identification band on patient. To treatment room. --19:06 06/29/20 Minerva Fischer R.N.PHYSICAL ASSESSMENTGENERAL / NEURO / PSYCH: Alert. Oriented X 4. Appears in no acute distress. Appears in pain.HEENT: Mucous membranes are pink.RESPIRATORY: Respirations not labored. Breath sounds within normal limits.GI / : The patient has had nausea and diarrhea. Emesis noted. Abdomen soft. Abdominaltenderness in the left upper quadrant and left side of the abdomen. Stool color normal. ( BM last 2 hrsago, was normal but looser). 3 Clinical Report - Nurses [facility] Emergency Department [address] [place] [address] Phone #: ext- [phone] 06/29/2020 19:00 Patient: YOSEF MOYA Sex: F : 2000 Age: 20y SKIN: Skin is warm and dry. Skin is diaphoretic. --19:22 06/29/20 Charisse Martinez R.N.NURSING PROGRESS NOTESPatient gowned. Reassurance given. Two patient identifiers checked. Call light placed in reach. Siderails up x 2. Bed placed in lowest position. Brakes of bed on. Patient not ready for evaluation. --19:0606/29/20 Minerva Fischer R.N. Patient ready for evaluation. --19:06 06/29/20 Minerva Fischer R.N. Patient ID band checked for patient name and birthdate: patient confirmed. Instructions provided to collect clean catch urine and patient verbalized understanding. Clean catch urine collected; sample sent to lab for urinalysis. Specimen labeled in the presence of the patient. --19:15 06/29/20 Minerva Fischer R.N. 19:34 06/29/2020 Site #1 started via IV in the right antecubital space with an 20g angiocath, with aseptic technique and good blood return; one attempt. Blood drawn: rainbow set and blood bank tube. Labeled in the presence of the patient and sent to the lab. Saline lock flushed with 10 mL saline. --19:49 06/29/20 Charisse Martinez R.N. 19:39 06/29/2020 Started bag #1 1000 mL IV Fluids NS; bolus of 1000 mL wide open via site #1 via IV pump. Allergies verified and confirmed 5 rights. IV patency established. IV site checked: no pain, redness, or swelling. IV flushed thoroughly pre- and post-medication administration. Information reviewed with patient including reason for taking this medication, signs of allergic reaction and precautions. Verbalizes understanding. --19:49 06/29/20 Charisse Martinez R.N. 19:49 06/29/2020 Started 25 mg of Phenergan IVPB in bag #1 50 mL; bolus of 25 mg wide open then at via site #1. via IV pump. Allergies verified and confirmed 5 rights. IV patency established. IV site checked: no pain, redness, or swelling. IV flushed thoroughly pre- and post-medication administration. Information reviewed with patient including reason for taking this medication, signs of allergic reaction and precautions. Verbalizes understanding. --19:50 06/29/20 Charisse Martinez R.N. late entry - 20:11 06/29/20. Patient gowned. Reassurance given. Rounding: Position: states comfortable. Proximity of possessions / care items: call light within easy reach. Plug ins: assured IV pump plugged in; checked status of equipment in use; located all cords, tubes, and lines to prevent fall hazard. Set expectations: advised patient of rounding protocol timing and asked if they needed anything else at this time. The patient is calm. Three patient identifiers checked. Call light placed in reach. Side rails up x 2. Bed placed in lowest position. Brakes of bed on. Patient waiting for lab and CT results. --20:22 06/29/20 Charisse Martinez R.N. 20:12 06/29/2020 Phenergan IVPB via IV site #1 Discontinued: bag #1 infused. Total amount infused: 50ml mL. IV patency established. IV site checked: no pain, redness, or swelling. IV flushed thoroughly. --20:12 06/29/20 Charisse Martinez R.N. 20:13 06/29/2020 Started 20 mg of Pepcid IVPB in bag #1 50 mL; at 100 mL/hr via site #1. via IV pump. 4 Clinical Report - Nurses [facility] Emergency Department [address] [place] [address] Phone #: ext- [phone] 06/29/2020 19:00 Patient: YOSEF MOYA Sex: F : 2000 Age: 20yAllergies verified and confirmed 5 rights. IV patency established. IV site checked: no pain, redness, orswelling. IV flushed thoroughly pre- and post- medication administration. Information reviewed with patientincluding reason for taking this medication, signs of allergic reaction and precautions. Verbalizesunderstanding. --20:13 06/29/20 Charisse Martinez R.N.21:17 06/29/2020 IV Fluids NS via IV site #1 Discontinued: bag #1 infused. Total amount infused: 1000mlmL. IV patency established. IV site checked: no pain, redness, or swelling. IV flushed thoroughly. --21:171 Charisse Martinez R.N.Patient gowned. Reassurance given.Rounding: Proximity of possessions / care items: call light within easy reach. Plug ins: assured IV pumpplugged in; checked status of equipment in use; located all cords, tubes, and lines to prevent fall hazard.Set expectations: advised patient of rounding protocol timing and asked if they needed anything else at thistime. The patient is calm. Three patient identifiers checked. Call light placed in reach. Side rails up x2. Bed placed in lowest position. Brakes of bed on. Patient waiting for CT results. --21:18 06/29/20Charisse Martinez R.N.20:45 06/29/2020 Pepcid IVPB via IV site #1 Discontinued: bag #1 infused. Total amount infused: 50mlmL. IV patency established. IV site checked: no pain, redness, or swelling. IV flushed thoroughly. --21: Charisse Martinez R.N.21:06/29/2020 Started bag #1 1000 mL IV Fluids NS; bolus of 1000 mL wide open via site #1 via IVpump. Allergies verified and confirmed 5 rights. IV patency established. IV site checked: no pain, redness,or swelling. IV flushed thoroughly pre- and post- medication administration. Information reviewed withpatient including reason for taking this medication, signs of allergic reaction and precautions. Verbal izesunderstanding. --21:23 06/29/20 Charisse Martinez R.N.Patient transported to OR by wheelchair with IV, mask and simulation tech. --21:54 06/29/20 Charisse Martinez R.N.Patient returned from CT by wheelchair with IV, mask and simulation tech. --22:06 06/29/20 Charisse Martinez R.N.22:19 06/29/2020 Morphine IVP 4 mg given over 5 minute(s) via site #1. Allergies verified and confirmed 5rights. IV patency established. IV site checked: no pain, redness, or swelling. IV flushed thoroughly pre-and post-medication administration. IVP given by RN. Information reviewed with patient including reasonfor taking this medication, signs of allergic reaction, precautions and sedative warning. Verbalizesunderstanding. --22:06/29/20 Charisse Martinez R.N.22:06/29/20. BP: 146/89. MAP: 108. HR: 115. RR: 18. O2 saturation: 99% on room air. Pain level now:11/26. --22:21 06/29/20 Charisse Martinez R.N.22:22 06/29/20. BP: 154/90. MAP: 111. HR: 120. RR: 18. O2 saturation: 99% on room air. --22:23 5 Clinical Report - Nurses [facility] Emergency Department [address] [place] [address] Phone #: ext- [phone] 06/29/2020 19:00 Patient: YOSEF MOYA Sex: F : 2000 Age: 20y 06/29/20 Charisse Martinez R.N. Care transferred and report given (Michelle West RN). --22:24 06/29/20 Charisse Martinez R.N. 22:50 06/29/2020 IV Fluids NS via IV site #1 Discontinued: bag #2 completed. Total amount infused: 1000 mL. IV patency established. IV site checked: no pain, redness, or swelling. IV flushed th oroughly. --23:11 06/29/20 Humera West R.N. 23:12 06/29/2020 Started bag #1 1000 mL IV Fluids NS; bolus of 1000 mL over 1 hour(s) via site #1 via IV pump. Allergies verified and confirmed 5 rights. IV patency established. IV site checked: no pain, redness, or swelling. IV flushed thoroughly pre- and post- medication administration. Information reviewed with patient including reason for taking this medication, signs of allergic reaction and precautions. Verbalizes understanding. --23:12 06/29/20 Humera West R.N. ( Repeat lactic drawn, labeled at bedside after confirming 2 patient identifers. 3rd liter NS initiated per order. Pt questions answered re lab results. Awaiting dispo and MD re-eval. Pt remains comfortable at this time, AOx4, NAD. Denies other needs at present.). --23:13 06/29/20 Humera West R.N. 23:55 06/29/2020 IV Fluids NS via IV site #1 Discontinued: bag #3 discontinued upon discharge. Total amount infused: 800 mL. IV patency established. IV site checked: no pain, redness, or swelling. IV flushed thoroughly. --00:03 06/30/20 Humera West R.N.DISPOSITION / DISCHARGE 23:50 06/29/2020 Site #1 removed upon discharge. Catheter intact. Manual pressure and bandage applied. --23:58 06/29/20 Humera West R.N. Condition at departure: stable. ( Pt VSS, remains in NAD, states feeling better and ready to DC home. Instructions and s/s of concern explained, change in medication reviewed. Pt verbalizes understanding. No other needs at present.). No learning barriers present. Discharge instructions provided and reviewed with the patient. Reviewed warnings (do not take metformin for 48 hours after receiving IV contrast). Reviewed medication(s) (change dose of metformin per instructions). Patient verbalized understanding. Written instructions provided in Welsh. The patient was discharged by the physician. She was discharged home. She left ambulatory and via private vehicle. Family member driving. --00:00 06/30/20 Humera West R.N. 23:50 06/29/20. BP: 156/100. MAP: 118. HR: 116. RR: 20. O2 saturatio n: 98% on room air. Temp: deferred. Pain level now: 09/26. --00:00 06/30/20 Humera West R.N. 00:00 06/30/20. ( Pt HR remains tachy (lowest of LOS), MD Huggins made aware of D/C VS and agrees with DC plan.). --00:02 06/30/20 Humera West R.N. 6 Clinical Report - Nurses [facility] Emergency Department [address] [place] [address] Phone #: ext- [phone] 06/29/2020 19:00 Patient: YOSFE MOYA Sex: F : 2000 Age: 20yLocked/Released at 06/30/2020 00:03 by Humera West R.N. Name Value Range Interpretation Code Description Data Shannon rce(s) Supporting Document(s) ID Date Data Source [id number] 06/29/2020 07:11:00 PM EST [facility] 1 Clinical Report - Physicians/Mid Levels [facility] Emergency Department [address] [place] [address] Phone #: ext- [phone] 06/29/2020 19:00 Patient: YOSEF MOYA [facility]#: [id number] Sex: F : 2000 Age: 20y Time Seen: 19:07 06/29/2020; initial patient contact. Arrived- By private vehicle. Historian- patient. Disposition decision: 23:29 06/29/2020.HISTORY OF PRESENT ILLNESS Chief Complaint: ABDOMINAL PAIN. It is described as "pain" and it is described as located in the left upper quadrant and left abdomen. This started 3 days ago and is still present and worsening. It was gradual in onset and has been intermittent. At its maximum, severity described as severe and 8 / 10. When seen in the E.D., severity described as severe and 8 / 10. Modifying factors- worsened by food. Not relieved by anything. The patient has had nausea and mild vomiting. No loss of appetite. She has had moderate diarrhea (x 7 days). This has occurred several times. No bloody, mucous containing or blood-tinged diarrhea. No recent travel. Similar symptoms previously. None. Recent medical care: Not recently seen/assessed.REVIEW OF SYSTEMSNo constipation, black stools, hematemesis, difficulty with urination or pain with urination. No urinaryfrequency, bloody stools, fever, headache or sore throat. No blurred vision, chest pain, difficulty breathing,cough or joint pain. No skin rash, chills or back pain. The patient has not had weight loss. All othersystems reviewed and are negative.PAST HISTORYSee nurses notes. Problems: Diabetes Mellitus. Obesity. Anxiety Reaction. Hypertension. Depression. PCOS. Additional Surgeries: Adenoidectomy. Appendectomy. Cholecystectomy. . Cyst removed. 2 Clinical Report - Physicians/Mid Levels [facility] Emergency Department [address] [place] [address] Phone #: ext- [phone] 06/29/2020 19:00 Patient: YOSEF MOYA [facility]#: [id number] Sex: F : 2000 Age: 20y Ovarian cyst removal. Tonsillectomy. Medications: Control Pills. PROzac Oral (Capsule 20 mg), daily. metFORMIN HCl Oral (Tablet 500 mg), daily. Allergies: None.SOCIAL HISTORYSmoker- current status unknown (socially). Occasional alcohol use. No drug use.ADDITIONAL NOTESThe nursing notes have been reviewed with agreement regarding the chief complaint, HPI, ROS, PMH andpatient medications and allergies.PHYSICAL EXAMVital Signs: 06/29/2020 19:01 BP: 170/107. MAP: 128. HR: 125. RR: 17. O2 saturation: 98%. Temp: 98.7F. Pain level now: 8/10. Have been reviewed. Oxygen saturation normal.Appearance: Alert. Oriented X3. Appears to be in pain. Patient in mild distress.Eyes: Pupils equal, round and reactive to light. Eyes normal inspection.ENT: Nose normal. Pharynx normal.Neck: Normal inspection. Neck supple.CVS: Normal heart rate and rhythm. Heart sounds normal. Pulses normal.Respiratory: No respiratory distress. Painless inspiration. Breath sounds normal. Chest nontender.Abdomen: Soft. Moderate tenderness in the left upper quadrant and left side of the abdomen. Noguarding or rebound tenderness. Bowel sounds normal. No organomegaly. No mass. Femoral pulsesequal. Moderately obese.Back: Normal inspection. No CVA tenderness.Skin: Skin warm and dry. Normal skin color. No rash. Normal skin turgor.Extremities: Extremities exhibit normal ROM. No lower extremity edema.Neuro: Oriented X 3. No motor deficit. No sensory deficit. Reflexes normal.LABS, X-RAYS, AND EKGAbdominal CT: see report; mesenteric adenitis, fatty liver. Study type: abdomen and pelvis. AbdominalCT performed with IV contrast. The study was interpreted by the radiologist. Interpretation time: 22:4301.Laboratory Tests: Laboratory tests have been ordered, with results reviewed and considered in themedical decision making process. Lactic Acid: (TONY: 06/29/2020 23:05) ( MsgRcvd 06/29/2020 23:16) Final results Test Result Flag Units (Reference) LACTIC ACID 2.5 H MMOL/L (0.2 - 2.2) CT Abd PEL W/ IV Contrast Only: (TONY: 06/29/2020 19:29) ( MsgRcvd 06/29/2020 22:16) In Progress 3 Clinical Report - Physicians/Mid Levels [facility] Emergency Department [address] [place] [address] Phone #: ext- [phone] 06/29/2020 19:00 Patient: YOSEF MOYA Sex: F : 2000 Age: 20yCT ABDReason(s): LUQ, left flank pain w diarrhea x 3 daysTRANSPORTATION: WC IV? IV?(Yes) O2? Oxygen?(No) RoCBC w Diff: (TONY: 06/29/2020 19:30) ( [facility]14) Final results Test Result Flag Units (Reference) CBC W/AUTOMATED DIFF COMPLETE BLOOD COUNT WBC 11.2 H 10/uL (4.2 - 11.0) RBC 4.99 10/uL (4.20 - 5.40) HEMOGLOBIN 14.9 g/dL (12.0 - 16.0) HEMATOCRIT 42.9 % (37.0 - 47.0) MCV 86.0 fL (81.0 - 101) MCH 29.9 pg (27.0 - 34.0) MCHC 34.7 g/dL (31.0 - 36.0) RDW 12.3 % (11.5 - 14.5) PLATELETS 395 10/uL (150 - 450) MPV 8.5 fL (7.4 - 10.4) NEUT 59.5 % (37.0 - 80.0) LYMPH 33.2 % (25.0 - 40.0) MONO 4.7 % (3.0 - 8.0) EOS 1.8 % (0.0 - 7.0) BASO 0.4 % (0.0 - 2.5) %IG 0.4 H % (0.0 - 0.0) %NRBC 0.0 % (0.0 - 0.0) #NEUT 6.69 10/uL (2.00 - 6.90) #LYMPH 3.73 H 10/uL (0.60 - 3.40) #MONO 0.53 10/uL (0.00 - 0.90) #EOS 0.20 10/uL (0.00 - 0.70) #BASO 0.04 10/uL (0.00 - 0.20) #IG 0.04 10/uL (0.00 - 0.10) #NRBC 0.00 10/uL (0.00 - 0.00) MANUAL DIFF NOT INDICATED RBC MORPH NOT INDICATEDCMP: (TONY: 06/29/2020 19:30) ( MsgRcvd 06/29/2020 20:22) Final results Test Result Flag Units (Reference) COMPREHENSIVE METABOLIC PANEL COMPREHENSIVE METABOLIC PANEL SODIUM 136 mEq/L (134 - 153) POTASSIUM 4.3 mEq/L (3.6 - 5.0) CHLORIDE 99 mEq/L (98 - 107) CO2 21 L MEQ/L (22 - 30) GLUCOSE 257 H MG/DL (65 - 110) BUN 14 MG/DL (7 - 21) CREATININE 0.7 MG/DL (0.7 - 1.5) BUN/CREAT 20 (8 - 27) TOTAL PROTEIN 7.1 G/DL (6.3 - 8.2) ALBUMIN 4.2 G/DL (3.9 - 5.0) GLOBULIN 2.9 GM/DL (2.4 - 3.2) A/G RATIO 1.4 (0.8 - 2.0) CALCIUM 9.2 MG/DL (8.4 - 10.2) TOTAL BILI <0.7 MG/DL (0.2 - 1.3) ALKALINE PHOS 69 U/L (38 - 126) SGOT/AST 29 U/L (5 - 40) SGPT/ALT 29 U/L (7 - 56) 4 Clinical Report - Physicians/Mid Levels [facility] Emergency Department [address] [place] [address] Phone #: ext- [phone] 06/29/2020 19:00 Patient: YOSEF MOYA Sex: F : Age: 20y ANION GAP 16.0 mmol/L (8.0 - 16.0) AGE 20 yrs NON-AA GFR >60 mL/min AFR AMER GFR >60 mL/min Male GFR Interprentation 20-49 yrs >60 mL/min Hobvjl19-48 yrs >56 mL/min Normal 60-69 yrs >49 mL/min Normal 70-79yrs>42 mL/min Normal 80 and above >35 mL/min Normal Female GFRInterpretation 20-39 yrs >60 mL/min Normal 40-49 yrs >58 mL/minNormal 50-59 yrs >51 mL/min Normal 60-69 yrs >45 mL/min Ojmiou89-48 yrs >39 mL/min Normal 80 and above >32 mL/min NormalLipase: (TONY: 06/29/2020 19:30) ( MsgRcvd 06/29/2020 20:22) Final results Test Result Flag Units (Reference) LIPASE 49 U/L (13 - 60)Beta-HCG, Qual Serum: (TONY: 06/29/2020 19:30) ( MsgRcvd 06/29/2020 20:15) Final results Test Result Flag Units (Reference) HCG SERUM QUAL NEGATIVE (NORMAL: NEGAT HCG SERUM QL REENTER NEGATIVE (NORMAL: NEGAT { KIT LOT # [id number] ){ KIT EXP [id number] ){ PROCEDURAL CONTROL VALID)Lactic Acid: (TONY: 06/29/2020 19:30) ( MsgRcvd 06/29/2020 19:58) Final results Test Result Flag Units (Reference) LACTIC ACID 3.5 HH MMOL/L (0.2 - 2.2) CALL/ READ BACK CARLOS MANUEL G[place] BY: STAR DATE/TIME Urinalysis: (TONY: 06/29/2020 19:20) ( MsgRcvd 06/29/2020 20:22) Final results Test Res ult Flag Units (Reference) URINALYSIS URINALYSIS SOURCE Clean Catch COLOR yellow (NORMAL: Yello CLARITY clear (NORMAL: Clear SPEC GRAVITY 1.025 (1.001 - 1.030 pH 5 (5 - 9) GLUCOSE 250 A (NORMAL: Negat BILIRUBIN NEG (NORMAL: Negat KETONE 5 A (NORMAL: Negat PROTEIN 30 (NORMAL: Negat NITRITE NEG (NORMAL: Negat BLOOD 50 A (NORMAL: Negat LEUK EST NEG (NORMAL: Negat UROBILINOGEN NOR (less than 1.0 MICROSCOPIC See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 acetaminophen worsens. Your Current Medications: . No home medication. Follow-up: Return to the emergency department as needed. Understanding of the discharge instructions verbalized by patient. Expected course of illness, discharge instructions, activity level, diet, follow-up appointment and risks and benefits of treatment reviewed with patient and understanding verbalized. Agrees to plan of care. Follow-up with: Roosevelt Velez MD, Cardiology, , [address] [place] [address], [facility] Follow up in two days even if well. Call for an appointment. Reason for referral: evaluation and treatment. Summary of care provided to patient via paper.(Electronically signed by Dimas Huggins M.D. 04/03/2020 00:51) Name Value Range Interpretation Code Description Data Shannon rce(s) Supporting Document(s) ID Date Data Source [id number] 11/18/2019 09:55:00 [place] [address] PHONE: [phone] FAX: [phone] Name .................. : GRIFFIN YOSEF Taylor Acct Number.................. : [id number] ROOM. ................. : 002-1 Number ................... : [id number] Stay type ............. : O/P Discharge Date......... ... : 10/25/19 Admit Date ......... : 10/24/19 Admit Phys .................... : JOSE ANTONIO LUNA Date of ....... : 2000 Family Phys ................... : NON STAFF Phone .................. : [phone] Age ................................ : 19 Film# .................. .:[id number] Sex ................................. : F Unsigned transcriptions are preliminary reports and do not represent a medical or legal document US OB BIOPHYSICAL PROFILE [id number] COMPLETE:10/24/19 22:02 ADB [id number] (REASON FOR OBS: BIOPHYSICAL PROFILE US OB LIMITED 1OR MORE FETUSE 88064 COMPLETE:10/24/19 22:02 ADB [id number] (REASON FOR OBS: NAVEEN AND BPP BIOPHYSICAL PROFILE, 10/24/19: FINDINGS: There is a single live intrauterine with heart rate of 152 beats a minute. Estimated delivery date is December 06, 2019. The fetus is in vertex position. There is a posterior placenta without previa or abruption. Biophysical profile score is 8/8. IMPRESSION: Single live intrauterine as above. Electronically Reviewed and Signed By Juanjose Camilo M.D. , 10/25/19 10:02, DAVID Transcribe Initials: SSR, Transcribe Date: 10/25/19 07:48, Dictation Date: ADDENDUM: Amniotic fluid index measures 17.2 cm. Examination dictated by CARLA Worrell. Examination was reviewed with Juanjose Camilo MD, radiologist at the time of this dictation. Electronically Reviewed and Signed By Juanjose Camilo M.D. , 11/18/19 09:55, DAVID Transcribe Initials: SSR, Transcribe Date: 11/15/19 14:16, Dictation Date: Page 1 of 2 [place] [address] PHONE: [phone] FAX: [phone] Name .................. : GRIFFIN Taylor Acct Number.................. : [id number] ROOM. ................. : 002-1 MR Number ................... : [id number] Stay type ............. : O/P Discharge Date......... ... : 10/25/19 Admit Date ......... : 10/24/19 Admit Phys .................... : JOSE ANTONIO LUNA Date of ....... : 2000 Family Phys ................... : NON STAFF Phone .................. : [phone] Age ................................ : 19 Film# .................. .:[id number] Sex ................................. : F Unsigned transcriptions are preliminary reports and do not represent a medical or legal document US OB BIOPHYSICAL PROFILE [id number] COMPLETE:10/24/19 22:02 ADB 49936 (REASON FOR OBS: BIOPHYSICAL PROFILE US OB LIMITED 1OR MORE FETUSE [id number] COMPLETE:10/24/19 22:02 ADB 37478 (REASON FOR OBS: NAVEEN AND BPP Copy for: 710 MED REC DISCHARGED Copy for: 710 MED REC DISCHARGED Page 2 of 2 Name Value Range Interpretation Code Description Data Shannon rce(s) Supporting Document(s) ID Date Data Source [id number] 11/18/2019 09:55:00 AM EDT [facility] [place] [address] PHONE: [phone] FAX: [phone] Name .................. : GRIFFIN Taylor Acct Number.................. : [id number] ROOM. ................. : 002-1 MR Number ................... : [id number] Stay type ............. : O/P Discharge Date......... ... : 10/25/19 Admit Date ......... : 10/24/19 Admit Phys .................... : JOSE ANTONIO LUNA Date of ....... : 2000 Family Phys ................... : NON STAFF Phone .................. : [phone] Age ................................ : 19 Film# .................. .:[id number] Sex ................................. : F Unsigned transcriptions are preliminary reports and do not represent a medical or legal document US OB BIOPHYSICAL PROFILE [id number] COMPLETE:10/24/19 22:02 ADB 28183 (REASON FOR OBS: BIOPHYSICAL PROFILE US OB LIMITED 1OR MORE FETUSE 06588 COMPLETE:10/24/19 22:02 ADB 51940 (REASON FOR OBS: NAVEEN AND BPP BIOPHYSICAL PROFILE, 10/24/19: FINDINGS: There is a single live intrauterine with heart rate of 152 beats a minute. Estimated delivery date is December 06, 2019. The fetus is in vertex position. There is a posterior placenta without previa or abruption. Biophysical profile score is 8/8. IMPRESSION: Single live intrauterine as above. Electronically Reviewed and Signed By Juanjose Camilo M.D. , 10/25/19 10:02, [facility] Transcribe Initials: SSR, Transcribe Date: 10/25/19 07:48, Dictation Date: ADDENDUM: Amniotic fluid index measures 17.2 cm. Examination dictated by CARLA Worrell. Examination was reviewed with Juanjose Camilo MD, radiologist at the time of this dictation. Electronically Reviewed and Signed By Juanjose Camilo M.D. , 11/18/19 09:55, [facility] Transcribe Initials: SSR, Transcribe Date: 11/15/19 14:16, Dictation Date: Page 1 of 2 [place] [address] PHONE: [phone] FAX: [phone] Name .................. : GRIFFIN NAVAS Juan M Acct Number.................. : [id number] ROOM. ................. : 002-1 MR Number ................... : [id number] Stay type ............. : O/P Discharge Date......... ... : 10/25/19 Admit Date ......... : 10/24/19 Admit Phys .................... : JOSE ANTONIO LUNA Date of ....... : 2000 Family Phys ................... : NON STAFF Phone .................. : [phone] Age ................................ : 19 Film# .................. .:[id number] Sex ................................. : F Unsigned transcriptions are preliminary reports and do not represent a medical or legal document OB BIOPHYSICAL PROFILE [id number] COMPLETE:10/24/19 22:02 ADB 72710 (REASON FOR OBS: BIOPHYSICAL PROFILE US OB LIMITED 1OR MORE FETUSE [id number] COMPLETE:10/24/19 22:02 ADB 58204 (REASON FOR OBS: NAVEEN AND BPP Copy for: 710 MED REC DISCHARGED Copy for: 710 MED REC DISCHARGED Page 2 of 2 Name Value Range Interpretation Code Description Data Shannon rce(s) Supporting Document(s) ID Date Data Source [id number] 11/09/2019 01:36:21 PM EDT [facility] [place] Name Value Range Interpretation Code Description Data Shannon rce(s) Supporting Document(s) POC GLUCOSE 102 mg/dL (70-99) H [facility] PERFORMED BY CLINICAL STAFF ID Date Data Source [id number] 11/08/2019 09:35:38 PM EDT [facility] Name Value Range Interpretation Code Description Data Shannon rce(s) Supporting Document(s) POC GLUCOSE 109 mg/dL (70-99) H [facility] PERFORMED BY CLINICAL STAFF ID Date Data Source [id number] 11/08/2019 04:59:41 PM EDT [facility] Name Value Range Interpretation Code Description Data Shannon rce(s) Supporting Document(s) POC GLUCOSE 91 mg/dL (70-99) [facility] NOTIFIED NURSEPERFORMED BY CLINICAL S TAFF ID Date Data Source [id number] 11/08/2019 01:00:59 PM EDT [facility] Name Value Range Interpretation Code Description Data Shannon rce(s) Supporting Document(s) POC GLUCOSE 123 mg/dL (70-99) H [facility] PERFORMED BY CLINICAL STAFF ID Date Data Source [id number] 11/08/2019 10:07:32 AM EDT [facility] Name Value Range Interpretation Code Description Data Shannon rce(s) Supporting Document(s) POC GLUCOSE 90 mg/dL (70-99) [facility] PERFORMED BY CLINICAL STAFF ID Date Data Source [id number] 11/08/2019 08:29:05 AM EDT [facility] Name Value Range Interpretation Code Description Data Shannon rce(s) Supporting Document(s) LDH 178 U/L (84-246) [facility] ID Date Data Source [id number] 11/08/2019 08:29:05 AM EDT [facility] Name Value Range Interpretation Code Description Data Shannon rce(s) Supporting Document(s) SODIUM 142 mmol/L (136-145) [facility] POTASSIUM 3.9 mmol/L (3.6-5.2) [facility] CHLORIDE 111 mmol/L (100-108) H [facility] CO2 23 mmol/L (22-31) [facility] ANION GAP 8 mmol/L (7-16) [facility] UREA NITROGEN 19 mg/dL (7-24) [facility] CREATININE 0.83 mg/dL (0.60-1.00) [facility] BUN/CREAT RATIO 22.9 RATIO (10.0-20.0) H [facility] GLUCOSE 97 mg/dL (70-99) [facility] CALCIUM 8.3 mg/dL (8.4-10.2) L [facility] TOTAL PROTEIN 5.3 g/dL (6.4-8.2) L [facility] ALBUMIN 2.4 g/dL (3.5-4.6) L [facility] GLOBULIN 2.9 g/dL (2.7-4.3) [facility] ALB/GLOB RATIO 0.8 RATIO [facility] ALKALINE PHOSPHATASE 96 U/L (45-117) [facility] BILIRUBIN,TOTAL 0.2 mg/dL (0.0-1.0) [facility] PLEASE NOTE:Total bilirubin results may be falselyelevated in patients taking Eltrombopag. AST (SGOT) 23 U/L (11-39) [facility] ALT (SGPT) 38 U/L (12-78) [facility] GFR >60 ml/min/1.73m2 (>59) [facility] GFR ( AMER) >60 ml/min/1.73m2 (>59) [facility] GFR [facility] [place] --NORMAL KIDNEY FUNCTION OR MILD DISEASE - GFR >OR= 60CHRONIC KIDNEY DISEASE - GFR 15 - 59RENAL FAILURE - GFR <15 Est. GFR calculation based on the MDRDstudy equation, which assumes a steadystate for creatinine. Est. GFR should notbe used for medication dosing. ID Date Data Source [id number] 11/08/2019 08:29:05 AM EDT [facility] [place] Name Value Range Interpretation Code Description Data Shannon rce(s) Supporting Document(s) URIC ACID 6.5 mg/dL (2.6-6.0) H [facility] [place] ID Date Data Source [id number] 11/08/2019 08:18:40 AM EDT [facility] [place] Name Value Range Interpretation Code Description Data Shannon rce(s) Supporting Document(s) HEMOGLOBIN A1C @ 7.8 % (4.0-6.0) H [facility] [place] Performed using Siemens Hav[place] immunoassa y.Care must be taken when interpreting [id number] in patients with a hemoglobin variantor decreased erythrocyte lifespan. Values 5.7 - 6.4% suggest prediabetes.Values >=6.5% are diagnostic for diabetes.REFERENCE: DIABETES CARE 2018: 41(S13-S27).PERFORMED AT [address] [facility] [address] EST [place] GLUCOSE 177 mg/dL [facility] [place] ID Date Data Source [id number] 11/08/2019 07:57:01 AM EDT [facility] [place] Name Value Range Interpretation Code Description Data Shannon rce(s) Supporting Document(s) WBC 7.8 10*3/uL (4.1-11.0) [facility] [place] RBC 3.65 10*6/uL (4.00-5.40) L [facility] HGB 10.8 g/dL (12.0-16.0) L [facility] HCT 32.2 % (36.0-47.0) L [facility] MCV 88.3 fL (80.0-95.0) [facility] MCH 29.6 pg (27.0-32.0) [facility] MCHC 33.5 g/dL (32.0-36.0) [facility] RDW 13.4 % (10.5-14.5) [facility] PLT 378 10*3/uL (150-450) [facility] MPV 6.9 fL (7.1-10.7) L [facility] ID Date Data Source [id number] 11/07/2019 10:23:00 PM EDT [facility] DATE OF EXAM: 11/07/2019EXAM: Venous Dop pler BILAT Legs CLINICAL HISTORY: EDEMA TECHNIQUE: Multiple real-time linear array color-flow Doppler and spectral analysis images of the deep venous system of the bilateral lower extremities were obtained. FINDINGS: Flow is identified in the common femoral, superficial femoral, popliteal, posterior tibial, anterior tibial and peroneal veins. There is no evidence of deep venous thrombosis. IMPRESSION: No evidence of deep venous thrombosis of the bilateral lower extremities. Professional interpretation performed at [facility] .End of diagnostic report for accession: [id number] Interpreted: Daniela Light MDTranscribed: 11/07/2019 10:23 PMSigned: 11/07/2019 10:23 PM Daniela Light MD N: [id number] [facility] # [id number] BILL # [id number] Name Value Range Interpretation Code Description Data Shannon rce(s) Supporting Document(s) ID Date Data Source [id number] 11/07/2019 09:11:48 PM EDT [facility] Name Value Range Interpretation Code Description Data Shannon rce(s) Supporting Document(s) LDH 456 U/L (84-246) H [facility] ID Date Data Source [id number] 11/07/2019 09:11:48 PM EDT [facility] Name Value Range Interpretation Code Description Data Shannon rce(s) Supporting Document(s) URIC ACID 6.7 mg/dL (2.6-6.0) H [facility] ID Date Data Source [id number] 11/07/2019 09:11:48 PM EDT [facility] Name Value Range Interpretation Code Description Data Shannon rce(s) Supporting Document(s) SODIUM 142 mmol/L (136-145) [facility] POTASSIUM 4.7 mmol/L (3.6-5.2) [facility] CHLORIDE 112 mmol/L (100-108) H [facility] CO2 23 mmol/L (22-31) [facility] ANION GAP 7 mmol/L (7-16) [facility] UREA NITROGEN 17 mg/dL (7-24) [facility] CREATININE 0.87 mg/dL (0.60-1.00) [facility] BUN/CREAT RATIO 19.5 RATIO (10.0-20.0) [facility] GLUCOSE 98 mg/dL (70-99) [facility] CALCIUM 8.2 mg/dL (8.4-10.2) L [facility] TOTAL PROTEIN 6.8 g/dL (6.4-8.2) [facility] ALBUMIN 2.5 g/dL (3.5-4.6) L [facility] GLOBULIN 4.3 g/dL (2.7-4.3) [facility] ALB/GLOB RATIO 0.6 RATIO [facility] ALKALINE PHOSPHATASE 107 U/L (45-117) [facility] BILIRUBIN,TOTAL 0.3 mg/dL (0.0-1.0) [facility] PLEASE NOTE:Total bilirubin results may be falselyelevated in patients taking Eltrombopag. AST (SGOT) 57 U/L (11-39) H [facility] ALT (SGPT) 51 U/L (12-78) [facility] GFR >60 ml/min/1.73m2 (>59) [facility] GFR ( AMER) >60 ml/min/1.73m2 (>59) [facility] GFR INTERPRETATION [facility] --NORMAL KIDNEY FUNCTION OR MILD DISEASE - GFR >OR= 60CHRONIC KIDNEY DISEASE - GFR 15 - 59RENAL FAILURE - GFR <15 Est. GFR calculation based on the MDRDstudy equation, which assumes a steadystate for creatinine. Est. GFR should notbe used for medication dosing. ID Date Data Source [id number] 11/07/2019 08:47:19 PM EDT [facility] Name Value Range Interpretation Code Description Data Shannon rce(s) Supporting Document(s) WBC 9.6 10*3/uL (4.1-11.0) [facility] [place] RBC 4.09 10*6/uL (4.00-5.40) [facility] HGB 12.2 g/dL (12.0-16.0) [facility] HCT 36.1 % (36.0-47.0) [facility] MCV 88.1 fL (80.0-95.0) [facility] MCH 29.8 pg (27.0-32.0) [facility] MCHC 33.9 g/dL (32.0-36.0) [facility] RDW 13.6 % (10.5-14.5) [facility] PLT 440 10*3/uL (150-450) [facility] MPV 7.0 fL (7.1-10.7) L [facility] NEUT % 55.0 % (35.0-75.0) [facility] LYMPH % 30.6 % (16.0-52.0) [facility] MONO % 8.2 % (0.0-8.0) H [facility] EOS % 4.8 % (0.0-5.0) [facility] BASO % 1.4 % (0.0-4.0) [facility] NEUT # 5.3 10*3/uL (1.8-7.7) [facility] LYMPH # 2.9 10*3/uL (1.2-4.8) [facility] MONO # 0.8 10*3/uL (0.0-0.8) [facility] Eosinophils [#/volume] in Blood by Automated count 0.5 10*3/uL (0.0-0 .5) [facility] BASO # 0.1 10*3/uL (0.0-0.2) [facility] ID Date Data Source [id number] 11/07/2019 08:39:57 PM EDT [facility] [place] Name Value Range Interpretation Code Description Data Shannon rce(s) Supporting Document(s) HOLD TUBE PINK [facility] [place] ID Date Data Source [id number] 11/07/2019 09:41:31 AM EDT [facility] [place] SPECIMEN DESCRIPTION URINE, COLLE CTION METHOD NOT SPECIFIEDCULTURE RESULTS >100,000 CFU/ML LACTOBACILLUS SPECIESNOTE: LACTOBACILLI USUALLY REPRESENT NORMAL UROGENITAL JOHN AND AREA VERY RARE CAUSE OF A UTI. LABORATORY METHODS ARE NOT CURRENTLYAVAILABLE FOR PERFORMING ANTIBIOTIC SUSCEPTIBILITY TESTING FOR THISORGANISM. REPORT STATUS FINAL 11/07/2019 Name Value Range Interpretation Code Description Data Shannon rce(s) Supporting Document(s) ID Date Data Source [id number] 11/05/2019 08:25:29 PM EDT [facility] [place] Name Value Range Interpretation Code Description Data Shannon rce(s) Supporting Document(s) URINE WBC (0-5) [facility] URINE RBC (0-2) [facility] EPITHELIAL CELLS 3+ [HPF] [facility] BACTERIA 1+ [HPF] [facility] MUCUS 1+ [HPF] [facility] WBC CAST [facility] ID Date Data Source [id number] 11/05/2019 08:15:48 PM EDT [facility] Name Value Range Interpretation Code Description Data Shannon rce(s) Supporting Document(s) COLOR [facility] APPEARANCE [facility] SPEC GRAV URINE 1.019 (1.003-1.030) [facility] PH URINE 5.0 (5.0-7.5) [facility] LEUK ESTERASE 1+ (NEG) A [facility] NITRITE URINE (NEG) [facility] PROTEIN URINE 1+ (NEG) A [facility] GLUCOSE URINE (NEG) [facility] KETONE URINE (NEG) [facility] UROBILINOGEN 0.2 mg/dL (0-1.0) [facility] BILIRUBIN URINE (NEG) [facility] BLOOD/HGB URINE 3+ (NEG) A [facility] ID Date Data Source [id number] 11/05/2019 08:48:23 PM EDT [facility] Name Value Range Interpretation Code Description Data Shannon rce(s) Supporting Document(s) TOTAL PROTEIN 5.7 g/dL (6.4-8.2) L [facility] ALBUMIN 2.3 g/dL (3.5-4.6) L [facility] GLOBULIN 3.4 g/dL (2.7-4.3) [facility] ALB/GLOB RATIO 0.7 RATIO [facility] BILIRUBIN,TOTAL 0.2 mg/dL (0.0-1.0) [facility] PLEASE NOTE:Total bilirubin results may be falselyelevated in patients taking Eltrombopag. BILIRUBIN,CONJUGATED <0.1 mg/dL (0.0-0.3) [facility] BILIRUBIN,UNCONJ. (0.0-0.7) [facility] ALKALINE PHOSPHATASE 113 U/L (45-117) [facility] AST (SGOT) 46 U/L (11-39) H [facility] ALT (SGPT) 73 U/L (12-78) [facility] ID Date Data Source [id number] 11/05/2019 08:48:23 PM EDT [facility] Name Value Range Interpretation Code Description Data Shannon rce(s) Supporting Document(s) LDH 195 U/L (84-246) [facility] ID Date Data Source [id number] 11/05/2019 08:48:23 PM EDT [facility] Name Value Range Interpretation Code Description Data Shannon rce(s) Supporting Document(s) URIC ACID 6.2 mg/dL (2.6-6.0) H [facility] ID Date Data Source [id number] 11/05/2019 08:48:23 PM EDT [facility] Name Value Range Interpretation Code Description Data Shannon rce(s) Supporting Document(s) SODIUM 142 mmol/L (136-145) [facility] POTASSIUM 4.6 mmol/L (3.6-5.2) [facility] CHLORIDE 113 mmol/L (100-108) H [facility] CO2 23 mmol/L (22-31) [facility] ANION GAP 6 mmol/L (7-16) L [facility] UREA NITROGEN 14 mg/dL (7-24) [facility] CREATININE 1.12 mg/dL (0.60-1.00) H [facility] BUN/CREAT RATIO 12.5 RATIO (10.0-20.0) [facility] GLUCOSE 117 mg/dL (70-99) H [facility] CALCIUM 8.5 mg/dL (8.4-10.2) [facility] GFR >60 ml/min/1.73m2 (>59) [facility] GFR ( AMER) >60 ml/min/1.73m2 (>59) [facility] GFR INTERPRETATION [facility] --NORMAL KIDNEY FUNCTION OR MILD DISEASE - GFR >OR= 60CHRONIC KIDNEY DISEASE - GFR 15 - 59RENAL FAILURE - GFR <15 Est. GFR calculation based on the MDRDstudy equation, which assumes a steadystate for creatinine. Est. GFR should notbe used for medication dosing. ID Date Data Source [id number] 11/05/2019 08:15:13 PM EDT [facility] Name Value Range Interpretation Code Description Data Shannon rce(s) Supporting Document(s) WBC 9.5 10*3/uL (4.1-11.0) [facility] RBC 3.79 10*6/uL (4.00-5.40) L [facility] HGB 11.5 g/dL (12.0-16.0) L [facility] HCT 33.8 % (36.0-47.0) L [facility] MCV 89.3 fL (80.0-95.0) [facility] MCH 30.4 pg (27.0-32.0) [facility] MCHC 34.0 g/dL (32.0-36.0) [facility] RDW 13.4 % (10.5-14.5) [facility] PLT 355 10*3/uL (150-450) [facility] MPV 6.9 fL (7.1-10.7) L [facility] NEUT % 62.9 % (35.0-75.0) [facility] LYMPH % 25.5 % (16.0-52.0) [facility] MONO % 6.3 % (0.0-8.0) [facility] EOS % 4.5 % (0.0-5.0) [facility] BASO % 0.8 % (0.0-4.0) [facility] NEUT # 5.9 10*3/uL (1.8-7.7) [facility] LYMPH # 2.4 10*3/uL (1.2-4.8) [facility] MONO # 0.6 10*3/uL (0.0-0.8) [facility] Eosinophils [#/volume] in Blood by Automated count 0.4 10*3/uL (0.0-0 .5) [facility] BASO # 0.1 10*3/uL (0.0-0.2) [facility] ID Date Data Source [id number] 10/24/2019 10:00:00 PM EDT [facility] ([facility]) Name Value Range Interpretation Code Description Data Shannon rce(s) Supporting Document(s) Comprehensive Metabo Laboratory test result [facility] ([facility]) COMPREHENSIVE METABOLIC PANEL Sodium 139 meq/L 134-153 [facility] ([facility]) Potassium 4.4 meq/L 3.6-5.0 [facility] ([facility]) Glucose 189 mg/dL 65-110 Above high normal [facility] ([facility]) Chloride 106 meq/L 98-107 [facility] ([facility]) Co2 20 meq/L 22-30 Below low normal [facility] ([facility]) BUN 13 mg/dL 7-21 [facility] ([facility]) Creatinine 0.6 mg/dL 0.7-1.5 Below low normal [facility] ( [facility]) Total Protein 6.0 g/dL 6.3-8.2 Below low normal [facility] T ([facility]) Albumin 3.4 g/dL 3.9-5.0 Below low normal [facility] ( [facility]) BUN/Creat 22 8-27 [facility] ([facility]) Globulin 2.6 GM/DL 2.4-3.2 [facility] ([facility]) Calcium 9.6 mg/dL 8.4-10.2 [facility] ([facility]) A/G Ratio 1.3 0.8-2.0 [facility] ([facility]) Alkaline Phos 135 U/L 38-126 Above high normal [facility] NT ([facility]) Total Bili Laboratory test result 0.2-1.3 ME [facility] ([facility]) SGPT/Alt 11 U/L 7-56 [facility] ([facility]) Sgot/Ast 14 U/L 5-40 [facility] ([facility]) Anion Gap 13.0 mmol/L 8.0-16.0 [facility] ([facility]) Age 19 yrs [facility] ([facility]) Afr Amer GFR Laboratory test result [facility] ([facility]) Male GFR Interprentation 20-49 yrs >60 mL/min Normal 50-59 yrs >56 mL/min Normal 60-69 yrs >49 mL/min Normal 70-79yrs >42 mL/min Normal 80 and above >35 mL/min Normal Female GFR Interpretation 20-39 yrs >60 mL/min Normal 40-49 yrs >58 mL/min Normal 50-59 yrs >51 mL/min Normal 60-69 yrs >45 mL/min Normal 70-79 yrs >39 mL/min Normal 80 and above >32 mL/min Normal Non-Aa GFR Laboratory test result [facility] ([facility]) ID Date Data Source [id number] 10/24/2019 10:00:00 PM EDT [facility] ([facility]) Name Value Range Interpretation Code Description Data Shannon rce(s) Supporting Document(s) Bilirubin.direct [Mass/volume] in Serum or Plasma Laboratory test result 0.1-0.4 [facility] ([facility]) Lactate dehydrogenase [Enzymatic activit y/volume] in Serum or Plasma by Lactate to pyruvate reaction 147 U/L 135-214 [facility] ([facility]) Urate [Mass/volume] in Serum or Plasma 4.9 mg/dL 2.5-8.5 [facility] ([facility]) ID Date Data Source [id number] 10/24/2019 10:00:00 PM EDT [facility] ([facility]) Name Value Range Interpretation Code Description Data Shannon rce(s) Supporting Document(s) Protime 12.7 s 11.0-15.5 [facility] ([facility]) Inr 0.94 0.93-1.23 [facility] ([facility]) PTT 27.8 s 24.8-36.7 [facility] ([facility]) \\BLDo\\INR INTERPRETATION\\BLDx\\ Therapeutic range for Coumadin and related oral anticoagulants. -International Normalized Ratio (INR): 2 .0 - 3.0 for Venous Thrombosis, Pulmonary Embolus, Tissue heart valves, Acute [place] Atrial Fibrillation, Valvular heart disease and recurrent Systemic Embolism. -International Normalized Ratio (INR): 2 .5 - 3.5 for Mechanical Prosthetic valve. \\BLDo\\PTT INTERPRETATION\\BLDx\\ Critical results for patients not on therapy: >50 seconds Critical results for patients on therapy: >119 seconds Therapeutic range for patients on therapy: 58 - 90 seconds Coag studies from line draws may not be accurate due to Heparin and other interferences. ID Date Data Source [id number] 10/24/2019 10:00:00 PM EDT [facility] ([facility]) Name Value Range Interpretation Code Description Data Shannon rce(s) Supporting Document(s) WBC 13.3 10^3/uL 4.2-11.0 Above high normal [facility] T ([facility]) CBC W/Automated Diff Laboratory test result [facility] ([facility]) COMPLETE BLOOD COUNT Hemoglobin 12.7 g/dL 12.0-16.0 [facility] ([facility]) RBC 4.38 10^6/uL 4.20-5.40 [facility] ([facility]) MCH 29.0 pg 27.0-34.0 [facility] ([facility]) MCV 85.6 fL 81.0-101 [facility] ([facility]) Hematocrit 37.5 % 37.0-47.0 [facility] ([facility]) MCHC 33.9 g/dL 31.0-36.0 [facility] ([facility]) RDW 12.7 % 11.5-14.5 [facility] ([facility]) MPV 9.7 fL 7.4-10.4 [facility] ([facility]) Platelets 297 10^3/uL 150-450 [facility] ([facility]) Neut 71.5 % 37.0-80.0 [facility] ([facility]) Lymph 21.5 % 25.0-40.0 Below low normal [facility] ( [facility]) Moffat 5.9 % 3.0-8.0 [facility] ([facility]) Eos 0.6 % 0.0-7.0 [facility] ([facility]) Baso 0.2 % 0.0-2.5 [facility] ([facility]) %Ig 0.3 % 0.0-0.0 Above high normal [facility] ([facility]) %NRBC 0.0 % 0.0-0.0 [facility] ([facility]) #Lymph 2.85 10^3/uL 0.60-3.40 [facility] ([facility]) #Neut 9.51 10^3/uL 2.00-6.90 Above high normal [facility] T ([facility]) #Eos 0.08 10^3/uL 0.00-0.70 [facility] ([facility]) #Moffat 0.78 10^3/uL 0.00-0.90 [facility] ([facility]) #Baso 0.02 10^3/uL 0.00-0.20 [facility] ([facility]) #NRBC 0.00 10^3/uL 0.00-0.00 [facility] ([facility]) #Ig 0.04 10^3/uL 0.00-0.10 [facility] ([facility]) Manual Diff Laboratory test result M [facility] ([facility]) RBC Morph Laboratory test result [facility] ([facility]) ID Date Data Source [id number] 10/24/2019 10:37:00 PM EDT [facility] Name Value Range Interpretation Code Description Data Shannon rce(s) Supporting Document(s) Urate [Mass/volume] in Serum or Plasma 4.9 MG/DL 2.5 - 8.5 [facility] ID Date Data Source [id number] 10/24/2019 10:37:00 PM EDT [facility] Name Value Range Interpretation Code Description Data Shannon rce(s) Supporting Document(s) Bilirubin.direct [Mass/volume] in Serum or Plasma <0.2 MG/DL 0.1 - 0. 4 [facility] ID Date Data Source [id number] 10/24/2019 10:37:00 PM EDT [facility] Name Value Range Interpretation Code Description Data Shannon rce(s) Supporting Document(s) Lactate dehydrogenase [Enzymatic activity/volume] in Serum o r Plasma 147 U/L 135 - 214 [facility] ID Date Data Source [id number] 10/24/2019 10:37:00 PM EDT [facility] Name Value Range Interpretation Code Description Data Shannon rce(s) Supporting Document(s) COMPREHENSIVE METABOLIC PANEL [facility] COMPREHENSIVE METABOLIC PANEL Sodium [Moles/volume] in Serum or Plasma 139 mEq/L 134 - 153 [facility] Potassium [Moles/volume] in Serum or Plasma 4.4 mEq/L 3.6 - 5.0 [facility] Chloride [Moles/volume] in Serum or Plasma 106 mEq/L 98 - 107 [facility] Carbon dioxide, total [Moles/volume] in Serum or Plasma 20 MEQ/L 22 - 30 L [facility] Glucose [Mass/volume] in Serum or Plasma 189 MG/DL 65 - 110 H [facility] BUN 13 MG/DL 7 - [facility] Creat[facility] [Mass/volume] in Serum or Plasma 0.6 MG/DL 0.7 - 1.5 L [facility] BUN/CREAT 22 8 - 27 [facility] al Protein [Mass/volume] in Serum or Plasma 6.0 G/DL 6.3 - 8.2 L [facility] Albumin [Mass/volume] in Serum or Plasma 3.4 G/DL 3.9 - 5.0 L [facility] Globulin [Mass/volume] in Serum by calculation 2.6 GM/DL 2.4 - 3.2 [facility] A/G RATIO 1.3 0.8 - 2.0 [facility] Calcium [Mass/volume] in Serum or Plasma 9.6 MG/DL 8.4 - 10.2 [facility] Bilirubin.total [Mass/volume] in Serum or Plasma <0.7 MG/DL 0.2 - 1.3 [facility] Alkaline phosphatase [Enzymatic activity/volume] in Serum or Plasma 135 U/L 38 - 126 H [facility] Aspartate aminotransferase [Enzymatic activity/volume] in Serum or Plasma 14 U/L 5 - 40 [facility] Alanine aminotransferase [Enzymatic activity/volume] in Seru m or Plasma 11 U/L 7 - 56 [facility] Anion gap 3 in Serum or Plasma 13.0 mmol/L 8.0 - 16.0 [facility] AGE 19 yrs [facility] NON-AA GFR >60 mL/min [facility] AFR AMER GFR >60 mL/min [facility] Male GFR In terprentation 20-49 yrs >60 mL/min Normal 50-59 yrs >56 mL/min Normal 60-69 yrs >49 mL/min Normal 70-79yrs >42 mL/min Normal 80 and above >35 mL/min Normal Female GFR Interpretation 20-39 yrs >60 mL/min Normal 40-49 yrs >58 mL/min Normal 50-59 yrs >51 mL/min Normal 60-69 yrs >45 mL/min Normal 70-79 yrs >39 mL/min Normal 80 and above >32 mL/min Normal ID Date Data Source [id number] 10/24/2019 10:31:00 PM EDT [facility] Name Value Range Interpretation Code Description Data Shannon rce(s) Supporting Document(s) Prothrombin time (PT) 12.7 SECONDS 11.0 - 15.5 [facility] INR in Platelet poor plasma by Coagulation assay 0.94 0.93 - 1. 23 [facility] aPTT in Blood by Coagulation assay 27.8 SECONDS 24.8 - 36.7 [facility] \\BLDo\\INR INTERPRETATION\\BLDx\\ Therapeutic range for Coumadin and related oral anticoagulants. - International Normalized Ratio (INR): 2.0 - 3.0 for Venous Thrombosis, Pulmonary Embolus, Tissue heart valves, Acute [place] Atrial Fibrillation, Valvular heart disease and recurrent Systemic Embolism. - International Normalized Ratio (INR): 2.5 - 3.5 for Mechanical Prosthetic valve. \\BLDo\\PTT INTERPRETATION\\BLDx\\ Critical results for patients not on therapy: >50 seconds Critical results for patients on therapy: >119 seconds Therapeutic range for patients on therapy: 58 - 90 seconds Coag pura dies from line draws may not be accurate due to Heparin and other interferences. ID Date Data Source [id number] 10/24/2019 10:22:00 PM EDT [facility] Name Value Range Interpretation Code Description Data Shannon rce(s) Supporting Document(s) CBC W/AUTOMATED DIFF [facility] COMPLETE BLOOD COUNT Leukocytes [#/volume] in Blood by Automated count 13.3 10^3/uL 4.2 - 11.0 H [facility] Erythrocytes [#/volume] in Blood by Automated count 4.38 10^6/uL 4. 20 - 5.40 [facility] Hemoglobin [Mass/volume] in Blood 12.7 g/dL 12.0 - 16.0 [facility] Hematocrit [Volume Fraction] of Blood by Automated count 37.5 % 3 7.0 - 47.0 [facility] Erythrocyte mean corpuscular volume [Entitic volume] by Auto mated count 85.6 fL 81.0 - 101 [facility] Erythrocyte mean corpuscular hemoglobin [Entitic mass] by Automated count 29.0 pg 27.0 - 34.0 [facility] Erythrocyte mean corpuscular hemoglobin concentration [Mass/volume] by Automated count 33.9 g/dL 31.0 - 36.0 [facility] Erythrocyte distribution width [Ratio] by Automated count 12.7 % 11.5 - 14.5 [facility] Platelets [#/volume] in Blood by Automated count 297 10^3/uL 150 - 45 0 [facility] Platelet mean volume [Entitic volume] in Blood by Automated count 9.7 fL 7.4 - 10.4 [facility] Neutrophils/100 leukocytes in Blood by Automated count 71.5 % 37. 0 - 80.0 [facility] Lymphocytes/100 leukocytes in Blood by Manual count 21.5 % 25.0 - 40.0 L [facility] Monocytes/100 leukocytes in Blood by Automated count 5.9 % 3.0 - 8.0 [facility] Eosinophils/100 leukocytes in Blood by Automated count 0.6 % 0.0 - 7.0 [facility] Basophils/100 leukocytes in Blood by Automated count 0.2 % 0.0 - 2.5 [facility] %IG 0.3 % 0.0 - 0.0 [facility] %NR[facility] 0.0 % 0.0 - 0.0 [facility] al Neutrophils [#/volume] in Blood by Automated count 9.51 10^3/uL 2.00 - 6.90 H [facility] Lymphocytes [#/volume] in Blood by Automated count 2.85 10^3/uL 0.60 - 3.40 [facility] Monocytes [#/volume] in Blood by Automated count 0.78 10^3/uL 0.00 - 0.90 [facility] Eosinophils [#/volume] in Blood by Automated count 0.08 10^3/uL 0.00 - 0.70 [facility] Basophils [#/volume] in Blood by Automated count 0.02 10^3/uL 0.00 - 0.20 [facility] #IG 0.04 10^3/uL 0.00 - 0.10 [facility] #NRBC 0.00 10^3/uL 0.00 - 0.00 [facility] MANUAL DIFF NOT INDICATED [facility] RBC MORPH NOT INDICATED [facility] spital ID Date Data Source [id number] 10/24/2019 08:20:00 PM EDT [facility] ([facility]) Name Value Range Interpretation Code Description Data Shannon rce(s) Supporting Document(s) Culture Urine Laboratory test result [facility] ([facility]) {SOURCE: Clean Catch~NURSE COLLECTED? N ID Date Data Source [id number] 10/24/2019 08:20:00 PM EDT [facility] ([facility]) Name Value Range Interpretation Code Description Data Shannon rce(s) Supporting Document(s) Creatinine [Mass/volume] in Urine 122.1 mg/dL 0.0-30.0 Above high n ormal [facility] ([facility]) {SOURCE: Clean Catch~NURSE COLLECTED? N Protein [Mass/volume] in Urine 69 mg/dL 0-20 Above high aura l [facility] ([facility]) {SOURCE: Clean Catch~NURSE COLLECTED? N ID Date Data Source [id number] 10/24/2019 08:20:00 PM EDT [facility] ([facility]) Name Value Range Interpretation Code Description Data Shannon rce(s) Supporting Document(s) Source Laboratory test result [facility] ([facility]) {SOURCE: Clean Catch~NURSE COLLECTED? N Urinalysis Laboratory test result [facility] ([facility]) {SOURCE: Clean Catch~NURSE COLLECTED? N Clarity Laboratory test result [facility] ([facility]) {SOURCE: Clean Catch~NURSE COLLECTED? N Color Laboratory test result [facility] ([facility]) {SOURCE: Clean Catch~NURSE COLLECTED? N Spec [place] 1.020 1.001-1.030 [facility] ([facility]) {SOURCE: Clean Catch~NURSE COLLECTED? N pH 6 5-9 [facility] ([facility]) {SOURCE: Clean Catch~NURSE COLLECTED? N Glucose 1000 Abnormal (applies to non-numeric res ults) [facility] ([facility]) {SOURCE: Clean Catch~NURSE COLLECTED? N Bilirubin Laboratory test result [facility] ([facility]) {SOURCE: Clean Catch~NURSE COLLECTED? N Ketone Laboratory test result [facility] ([facility]) {SOURCE: Clean Catch~NURSE COLLECTED? N Protein 30 [facility] ([facility]) {SOURCE: Clean Catch~NURSE COLLECTED? N Blood 25 Abnormal (applies to non-numeric res ults) [facility] ([facility]) {SOURCE: Clean Catch~NURSE COLLECTED? N Nitrite Laboratory test result [facility] ([facility]) {SOURCE: Clean Catch~NURSE COLLECTED? N Leuk Est Laboratory test result [facility] ([facility]) {SOURCE: Clean Catch~NURSE COLLECTED? N Microscopic Laboratory test result M [facility] ([facility]) {SOURCE: Clean Catch~NURSE COLLECTED? N Urobilinogen Laboratory test result [facility] ([facility]) {SOURCE: Clean Catch~NURSE COLLECTED? N WBC Laboratory test result [facility] ([facility]) {SOURCE: Clean Catch~NURSE COLLECTED? N Epithelial Laboratory test result Abnormal (applies to non -numeric results) [facility] ([facility]) {SOURCE: Clean Catch~NURSE COLLECTED? N RBC Laboratory test result [facility] ([facility]) {SOURCE: Clean Catch~NURSE COLLECTED? N Casts Laboratory test result [facility] ([facility]) {SOURCE: Clean Catch~NURSE COLLECTED? N Bacteria Laboratory test result [facility] ([facility]) {SOURCE: Clean Catch~NURSE COLLECTED? N Hyaline Cast Laboratory test result Abnormal (applies to non-numeric results) [facility] ([facility]) {SOURCE: Clean Catch~NURSE COLLECTED? N Coarse Gran Laboratory test result Abnormal (applies to non-numeric results) [facility] ([facility]) {SOURCE: Clean Catch~NURSE COLLECTED? N ID Date Data Source [id number] 10/29/2019 02:20:00 PM EDT [facility] Name Value Range Interpretation Code Description Data Shannon rce(s) Supporting Document(s) CULTURE URINE [facility] spital _CULTURE URINE_$$[id number]$$[id number]$$[id number]$$[id number]$$[id number]$$[id number]$$[id number]$$[id number]$$[id number]$$ 135759$$[id number]$$[id number]$$[id number]$$[id number]$$129625$$205000$$[id number]$$[id number]$$[id number]$$ 528455$$305180$$230517$$[id number]$$131979$$[id number]$$[id number]$$[id number] -- Continued on next page --Patient: GRIFFIN NAVAS N Order: Page 2Culture: CULTURE URINE Status: Final ==== -- Continued on next page --Patient: GRIFFIN NAVAS N Order: [id number] Page 2Culture: CULTURE URINE Status: Prelim =====$$[id number]$$[id number] DATE/TIME: 10/29/2019 14:05Culture: CULTURE URINE Status: FinalUrine Culture,Comprehensive: [id number] urogenital flora10,000-25,000 colony forming units per mL Previous result entered on 10/27/2019 01:31 ET No growth after 18-24 hours.P1 Test performed by: [facility] #: [id number] [address] [id number] [facility] [id number] Director : Lukas Valentin MD NPI #:Masking Machine Operator : [email or web address] REF 10/29/[email or web address] REF ID Date Data Source [id number] 10/24/2019 10:30:00 PM EDT [facility] Name Value Range Interpretation Code Description Data Shannon rce(s) Supporting Document(s) CREAT UR 122.1 MG/DL 0.0 - 30.0 H [facility] ID Date Data Source [id number] 10/24/2019 10:30:00 PM EDT [facility] Name Value Range Interpretation Code Description Data Shannon rce(s) Supporting Document(s) Protein [Mass/volume] in Urine by Test strip 69 mg/dL 0 - 20 H [facility] T ID Date Data Source [id number] 10/24/2019 10:06:00 PM EDT [facility] Name Value Range Interpretation Code Description Data Shannon rce(s) Supporting Document(s) [facility] R [facility] COLOR yellow NORMAL: Yellow [facility] CLARITY hazy NORMAL: Clear [facility] Specific gravity of Urine by Test strip 1.020 1.001 - 1.030 [facility] pH 6 5 - 9 [facility] Glucose [Mass/volume] in Urine by Test strip 1000 NORMAL: Negat [facility] Bilirubin.total [Presence] in Urine by Test strip NEG NORMAL: Negative [facility] Ketones [Presence] in Urine by Test strip NEG NORMAL: Negative [facility] Protein [Mass/volume] in Urine by Test strip 30 NORMAL: Negat dulce [facility] Nitrite [Presence] in Urine by Test strip NEG NORMAL: Negative [facility] BLOOD 25 NORMAL: Negative A [facility] Leukocyte esterase [Presence] in Urine by Test strip NEG AURA L: Negative [facility] Urobilinogen [Mass/volume] in Urine by Test strip NOR less suzan n 1.0 mg/dL [facility] MICROSCOPIC See Below [facility]osp ital WBC 1 - 3 NORMAL: NONE SEEN [facility] Erythrocytes [#/volume] in Urine by Test strip 0 - 1 NORMAL: NON E SEEN [facility] EPITHELIAL MANY NORMAL: NONE SEEN A [facility] Bacteria [Presence] in Urine sediment by Light microscopy 1+ SMALL NORMAL: NONE SEEN [facility] Casts [#/area] in Urine sediment by Microscopy low power field See Be low [facility] Hyaline casts [#/area] in Urine sediment by Microscopy low p ower field 0-1 NORMAL: None Seen A [facility] Coarse Granular Casts [#/area] in Urine sediment by Mi croscopy low power field 0-1 NORMAL: None Seen A [facility] ID Date Data Source [id number] 10/21/2019 01:45:00 PM EDT [facility] [address] [place] [address] PHONE: [phone] FAX: [phone] Name .................. : PAVELNEIL YOSEF Taylor Acct Number.................. : [id number] ROOM. ................. : TR-02 MR Number ................... : [id number] Stay type ............. : E/R Discharge Date......... ... : 10/18/19 Admit Date ......... : 10/18/19 Admit Phys .................... : MARCELA Laboy Date of ....... : 2000 Family Phys ................... : NON STAFF Phone .................. : [phone] Age ................................ : 19 Film# .................. .:[id number] Sex ................................. : F Unsigned transcriptions are preliminary reports and do not represent a medical or legal document [place]TE LT [id number] COMPLETE:10/18/19 17:23 WEST [id number] Reason(s): trauma. pt tenderness med mal and 4th MT LEFT ANKLE X-RAY: INDICATION: Trauma. FINDINGS/IMPRESSION: There is no evidence of fracture or dislocation. Diffuse soft tissue edema is noted. The ankle mortise is intact. No joint effusion. Electronically Reviewed and Signed By Juanjose Camilo M.D. , 10/21/19 13:45, [facility] Transcribe Initials: LIZZETTE , Transcribe Date: 10/18/19 18:05, Dictation Date: Copy for: UNRULY WILLIS via fax Copy for: EMERGENCY DEPT via modem Copy for: 710 MED REC DISCHARGED Page 1 of 1 Name Value Range Interpretation Code Description Data Shannon rce(s) Supporting Document(s) ID Date Data Source [id number] 10/18/2019 04:50:00 PM EDT [facility] 1 OrderSheet [facility] Emergency Department [address] [place] [address] Phone #: ext- [phone] 10/18/2019 16:41 Patient: YOSEF MOYA Sex: F : 2000 Age: 19yWEIGHT:129.2 kg (S) HEIGHT:67 inches (S) BMI:44.7ALLERGIES: advil liquid gelCHIEF COMPLAINT: Lt, ankle, Lt, footDIAGNOSIS: Sprain of jointLAB ORDERSOrder Description Priority Entered Acknowledged InitialedDIAGNOSTIC STUDY ORDERSOrder Description Priority Entered Acknowledged InitialedAnkle Complete STAT 17:00 10/18/2019 17:04 Byron Shipman (Oxygen?(No)) Caterina Green RN PA; Reason for Study: trauma. pt tenderness med mal and 4th MTMEDICATION/IV/DRIP/FLUID ORDERSOrder Description Priority Entered Acknowledged InitialedGENERAL ORDERSOrder Description Priority Entered Acknowledged InitialedSplint (Aircast) L 17:37 10/18/2019 17:54 Ruthy Shipman RN PA;Crutches (5'7") 17:37 10/18/2019 17:54 Zoe Shipman RN PA;[Electronically signed by Caterina Green (17:50 10/18/2019)][Electronically signed by Zoe Shipman RN (17:57 10/18/2019)][Electronically locked by Zoe Shipman RN (17:57 10/18/2019)] Name Value Range Interpretation Code Description Data Shannon rce(s) Supporting Document(s) ID Date Data Source [id number] 10/18/2019 04:50:00 PM EDT [facility] 1 Medication Reconciliation Report [facility] Emergency Department [address] [place] [address] Phone #: ext- [phone] 10/18/2019 16:41 Patient: YOSEF MOYA Sex: F : 2000 Age: 19yWeight: 129.2 kgHeight/Length: 67 in.BMI: 44.7ALLERGIES: advil liquid gelThe patient's Home Medications are listed below:CONTINUE TAKING THE FOLLOWING MEDICATIONS: Vitamins Oral 1 pill, dailyThe source(s) of the original Home Medication information:patientThe following Medications were given to the patient in the Emergency Department:None.The following Medications were prescribed to the patient:None. Name Value Range Interpretation Code Description Data Shannon e(s) Supporting Document(s) ID Date Data Source [id number] 10/18/2019 04:50:00 PM EDT [facility] 1 Medication Administration Record [facility] Emergency Department [address] [place] [address] Phone #: ext- [phone] 10/18/2019 16:41 Patient: YOSEF MOYA Sex: F : 2000 Age: 19yWeight: 129.2 kgHeight/Length: 67 inBMI: 44.7ALLERGIES: advil liquid gelDate/Time Medication Administered Medication Ordered Name Value Range Interpretation Code Description Data [facility](s) Supporting Document(s) ID Date Data Source [id number] 10/18/2019 04:50:00 PM EDT [facility] 1 General Instructions [facility] Emergency Department [address] [place] [address] Phone #: ext- [phone] 10/18/2019 16:41 Patient: YOSEF MOYA Sex: F : 2000 Age: 19ySprain of the left ankle.INSTRUCTIONSApply ice. Use crutches. Wear air splint as needed. Elevate affected areas above chest level. Noweight bearing left leg until better.(activity as tolerated. Rest, ice, compression, elevation. No weight bearing until better. you can take tylenolfor pain).Warnings: GENERAL WARNINGS: Return or contact your physician immediately if your conditionworsens or changes unexpectedly, if not improving as expected, or if other problems arise. Specificallyreturn if problem worsens or fails to resolve.Your Current Medications: Your current home medications have been reviewed.CONTINUE TAKING THE FOLLOWING MEDICATIONS: Vitamins Oral : 1 pill daily.Follow-up:Follow up with your healthcare provider in about three days. Call for an appointment. Reason for referral:evaluation and treatment. Summary of care provided to patient via paper.Understanding of the discharge instructions verbalized by patient. ADDITIONAL INFORMATIONAnkle Sprain (Adult) 2 General Instructions [facility] Emergency Department [address] [place] [address] Phone #: ext- [phone] 10/18/2019 16:41 Patient: YOSEF MOYA Sex: F : 2000 Age: 19yAn ankle sprain is a stretching or tearing of the ligaments that hold the ankle joint together. There areno broken bones.An ankle sprain is a common injury for both children and adults. It happens when the ankle turns,twists, or rolls in an awkward way. This can be caused by a sports injury. Or it can happen from doingsomething as simple as stepping on an uneven surface.Ligaments are made of tough connective tissue. Normally, ligaments stretch a certain amount andthen go back to their normal place. A sprain happens when a ligament is forc ed to stretch more thanthe normal amount. A severe sprain can actually tear the ligaments. If you have a severe sprain, youmay have felt or heard something like a pop when you were injured.Ankle sprains are given a grade depending on whether they are mild, moderate, or severe: Grade 1 sprain. A mild sprain with minor stretching and damage to the ligament. Grade 2 sprain. A moderate sprain where the ligament is partly torn. Grade 3 sprain. The most severe kind of sprain. The ligament is completely torn.Most sprains take about 4 to 6 weeks to heal. A severe sprain can take several months to recover.Your healthcare provider may order X-rays to be sure you don't have a fracture, or broken bone.The injured area will feel sore. Swelling and pain may make it hard to walk. You may need crutches ifwalking is painful. Or your provider may have you use a cast boot or air splint. This will depend on thegrade of ankle sprain that you have.Home care For a Grade 1 sprain, use RICE (rest, ice, compression, and elevation): 3 General Instructions [facility] Emergency Department [address] [place] [address] Phone #: ext- [phone] 10/18/2019 16:41 Patient: YOSEF MOYA Sex: F : 2000 Age: 19y Rest your ankle. Don't walk on it. Ice should be used right away to help control swelling. Place an ice pack over the injured area for 20 minutes. Do this every 3 to 6 hours for the first 24 to 48 hours. Keep using ice packs to ease pain and swelling as needed. To make an ice pack, put ice cubes in a plastic bag that seals at the top. Wrap the bag in a clean, thin towel or cloth. Never put ice or an ice pack directly on the skin. The ice pack can be put right on the cast, bandage, or splint. As the ice melts, be careful that the cast, bandage, or splint doesn't get wet. If you have a boot, open it to apply an ice pack, unless told otherwise by your provider. Compression devices help to control swelling. They also keep the ankle from moving and support your injured ankle. These devices include dressings, bandages, and wraps. Elevate or raise your ankle above the level of your heart when sitting or lying down. This is very important for the first 48 hours. Follow the RICE guidelines for a Grade 2 sprain. This type of sprain will take longer to heal. Your provider may have you wear a splint, cast, or brace to keep your ankle from moving. If you have a Grade 3 sprain, you are at risk for long- term ankle instability. In rare cases, surgery may be needed. Your provider may have you wear a short leg cast or a walking boot for 2 to 3 weeks. After 48 hours, it may be helpful to apply heat for 20 minutes several times a day. You can do this with a heating pad or warm compress. Or you may want to go back and forth between using ice and heat. Never apply heat directly to the skin. Always wrap the heating pad or warm compress in a clean, thin towel or cloth. You may use [id number] pain medicine (NSAIDS or nonsteroidal anti-inflammatory drugs) to control pain, unless another pain medicine was p rescribed. Talk with your provider before using these medicines if you have chronic liver or kidney disease, or have ever had a stomach ulcer or gastrointestinal bleeding. Follow any rehabilitation exercises your provider gives you. These can help you be more flexible and improve your balance and coordination. This is helpful in preventing long-term ankle problems.PreventionTo help prevent ankle sprains, it's important to have good strength, balance, and flexibility. Be sureto: Always warm up before you exercise or do something very active Be careful when walking or running on un even or cracked surfaces 4 General Instructions [facility] Emergency Department [address] [place] [address] Phone #: ext- [phone] 10/18/2019 16:41 Patient: YOSEF MOYA Sex: F : 2000 Age: 19y Wear shoes that are in good condition and fit well Listen to your body's signals to slow down when you are in pain or tiredFollow-up careAny X-rays you had today don't show any broken bones, breaks, or fractures. Sometimes fracturesdon't show up on the first X-ray. Bruises and sprains can sometimes hurt as much as a fracture.These injuries can take time to heal completely. If your symptoms don't get better or they get worse,talk with your healthcare provider. You may need a repeat X-ray.Follow up with your health care provider, or as advised. Check for any warning signs listed below.When to seek medical adviceCall your healthcare provider right away if any of these occur: Fever of 100.4 F (38 C) or higher, or as directed by your healthcare provider Chills The injury doesn't seem to be healing The swelling comes back The cast or splint has a bad smell The plaster cast or splint gets wet or soft The fiberglass cast or splint gets wet and does not dry for 24 hours The pain or swelling increases, or redness appears Your toes become cold, blue, numb, or tingly The skin is discolored (looks blue, purple, or kuo), has blisters, or is irritated You re-injure your ankle [id number] [employer]. [address] [place] [address]. All rights reserved. This information is not intended as asubstitute for professional medical care. Always follow your healthcare professional's instructions. You have been given the following additional information: Ankle Sprain (Adult) No weight bearing left leg until better. 5 General Instructions [facility] Emergency Department [address] [place] [address] Phone #: ext- [phone] 10/18/2019 16:41 Patient: YOSEF MOYA Sex: F : 2000 Age: 19y(Electronically signed by CARLA Gomez 10/18/2019 17:50) Name Value Range Interpretation Code Description Data Shannon rce(s) Supporting Document(s) ID Date Data Source [id number] 10/18/2019 04:50:00 PM EDT [facility] 1 Clinical Report - Nurses [facility] Emergency Department [address] [place] [address] Phone #: [phone] jdt- [phone] 10/18/2019 16:41 Patient: YOSEF MOYA Sex: F : 2000 Age: 19yTRIAGEArrived by private vehicle. Historian: patient.Triage time: late entry - 16:42 10/18/2019. Acuity: LEVEL 4.Chief Complaint: (Left ankle injury).Alert. No acute distress.Location of injuries: left ankle. Occurred at home. Occurred late entry - 14:30 10/16/2019. ( Pt statesshe was walking and the rug she was walking on slipped and she rolled her left ankle. Pt elevated/iced itbut it is not getting better. 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 Negative (no infection suspected/documented). (16:47 10/18/2019).--16:48 10/18/19 Suri Ibarra R.N.16:43 10/18/19. BP: 142/76. MAP: 98. HR: 90. RR: 17. O2 satur ation: 98% on room air. Temp: 98.8 F(oral). Pain level now 5/10. --16:48 10/18/19 Suri Ibarra R.N.Weight: 129.2 kg stated. Height/Length: 67 inches Per Patient. BMI: 44.7. --16:41 10/18/19 Suri Ibarra R.N.MedicationsPrenatal Vitamins Oral 1 pill, daily. --16:44 10/18/19 Suri Ibarra R.N.Allergiesadvil liquid gel. --16:45 10/18/19 Suri Ibarra R.N.PROBLEMS:. --17:46 10/18/19 Chandra Gomez following entry was modified by CARLA Gomez, 16:50 10/18/19. --16:45 10/18/19 Suri Ibarra R.N.The following entry was modified by CARLA Gomez, 17:46 10/18/19. --16:50 10/18/19 PA. PatriciaMedication/allergy information source: the patient. --16:48 10/18/19 Suri Ibarra R.N.ADDITIONAL SURGERIES:Adenoidectomy. 2 Clinical Report - Nurses [facility] Emergency Department [address] [place] [address] Phone #: ext- [phone] 10/18/2019 16:41 [id number] Sex[facility] F : 2000 Age: 19y Appendectomy. Cholecystectomy. Ovarian cyst removal. Tonsillectomy. --16:45 10/18/19 Suri Ibarra R.N. History PAST MEDICAL HX: Tetanus status: up-to-date. Immunizations: up-to-date. Last normal menstrual period- LMP 04/06/2019, RALPH 12/06/2019. 1. Para 0. Abortions 0. Confirmed . In 3rd trimester. confirmed with sonogram. Has had care by camera engineer. SOCIAL HX: Never smoker. No alcohol use or drug use. She was offered HIV testing but declined. Patient education was provided. She was offered hepatitis C testing but declined. Patient education was provided. ( COVID screen negative). She has not traveled outside the [place] Infectious disease exposure: No infectious disease exposure. Patient is not a known carrier of tuberculosis, hepatitis, HIV, MRSA or VRE. Patient is not a known carrier of CRE. SELF HARM ASSESSMENT: Self harm assessment was performed. The patient answered "no" to the question(s) "Do you have thoughts of harming or killing yourself?" and "Do you have a plan for harming or killing yourself?". ABUSE ASSESSMENT: Abuse assessment. The patient had positive responses to the question(s) "Do you feel safe in your home?". Abuse denied. No suspicion of abuse. No report of abuse. NUTRITIONAL RISK ASSESSMENT: The nutritional risk assessment revealed no deficiencies. FUNCTIONAL ASSESSMENT: Functional assessment: no impairments noted. LEARNING NEEDS ASSESSMENT: The learning needs assessment revealed no barriers. FALL RISK ASSESSMENT: Fall risk assessment completed. No risk factors identified. SKIN INTEGRITY ASSESSMENT: Skin integrity risk assessment completed. No skin integrity risk identified. --16:48 10/18/19 Suri Ibarra R.N. Interventions Identification band on patient. --16:48 10/18/19 Suri Ibarra R.N.PHYSICAL ASSESSMENTAmbulatory to room.GENERAL / NEURO / PSYCH: Alert. Oriented X 4. Appears in no acute distress.EXTREMITIES: ( L ankle swollen and bruised, pain with and without wt. bearing).SKIN: Skin intact. Skin is warm and dry. --16:51 10/18/19 Zoe Shipman, CANDACE.NURSING PROGRESS N OTESReassurance given. Two patient identifiers checked. Bed placed in lowest position. Brakes of bed on. 3 Clinical Report - Nurses [facility] Emergency Department [address] [place] [address] Phone #: ext- [phone] 10/18/2019 16:41 Patient: YOSEF MOYA Sex: F : 2000 Age: 19y Patient ready for evaluation. --16:51 10/18/19 Zoe Shipman RN 17:10 10/18/19. Patient transported to radiology by wheelchair with teletype technician. --17:15 10/18/19 Zoe Shipman RN Patient returned from radiology by wheelchair with teletype technician. --17:17 10/18/19 Zoe Shipman RN 17:40 10/18/19. Air splint applied to left ankle. Distal pulses intact, sensation intact and motor within normal limits. Patient tolerated the procedure well. Splinting applied by nurse. ( air cast applied but wont connect due to pt large leg so 4inch agnieszka wrapped around and instructions given, crutches also fitted and demonstrated proper tech.). --17:55 10/18/19 Zoe Shipman RN.DISPOSITION / DISCHARGE 17:40 10/18/19. BP: 130/91. MAP: 104. HR: 97. RR: 17. O2 saturation: 97%. Temp: 98.8 F. Pain level now: 09/26. --17:40 10/18/19 [facility] Tech, MINO Sue Tech1 Departure time: 17:50 10/18/2019. --17:56 10/18/19 Zoe Shipman RN Condition at departure: stable. No learning barriers present. Discharge instructions provided and reviewed with the patient. Reviewed crutch walking, splint care, rest, ice, compression and elevation instructions. Patient verbalized understanding. Written instructions provided in Welsh. 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 She was discharged home and accompanied by spouse. She left ambulatory on crutches and via private vehicle. Spouse driving. --17:56 10/18/19 Zoe Shipman RN.Locked/Released at 10/18/2019 17:57 by Zoe Shipman RN Name Value Range Interpretation Code Description Data Shannon rce(s) Supporting Document(s) ID Date Data Source [id number] 10/18/2019 04:50:00 PM EDT [facility] 1 Clinical Report - Physicians/Mid Levels [facility] Emergency Department [address] [place] [address] Phone #: ext- [phone] 10/18/2019 16:41 Patient: YOSEF MOYA Sex: F : 2000 Age: 19y Time Seen: 16:47 10/18/2019. Arrived- By private vehicle. Historian- patient. Disposition decision: 17:30 10/18/2019.HISTORY OF PRESENT ILLNESS Chief Complaint: Injury to the left foot and left ankle. The injury happened today. The patient sustained a twisting injury (Pt tripped on a rug and rolled her left ankle). Occurred at home. Patient is experiencing moderate pain. No injury to the head or neck or other injury.REVIEW OF SYSTEMSCurrently . No chills, fatigue, fever, double vision or ear pain. No nasal congestion, runny nose,sore throat, chest pain or cough. No difficulty breathing, abdominal pain, diarrhea, nausea or vomiting.No back pain, laceration or numbness. The patient has had joint pain.PAST HISTORYAdditional Surgeries:Adenoidectomy.Appendectomy.Cholecystectomy.Ovarian cyst removal.Tonsillectomy. Medications: Vitamins Oral 1 pill, daily. Allergies: advil liquid gel.SOCIAL HISTORYNever smoker. No alcohol use or drug use.ADDITIONAL NOTESThe nursing notes have been reviewed with agreement regarding the chief complaint, HPI, ROS, PMH andpatient medications and allergies.PHYSICAL EXAMVital Signs: 10/18/2019 16:43 BP: 142/76. MAP: 98. HR: 90. RR: 17. O2 saturation: 98% on room air.Temp: 98.8 F. Have been reviewed and appear to be correct. Blood pressure normal. Heart ratenormal. Respiratory rate normal. Temperature normal. Oxygen saturation normal.Appearance: Alert. Oriented X3. No acute distress.Head: Head atraumatic. 2 Clinical Report - Physicians/Mid Levels [facility] Emergency Department [address] [place] [address] Phone #: ext- [phone] 10/18/2019 16:41 Patient: YOSEF MOYA [facility]#: [id number] Sex: F : 2000 Age: 19y Eyes: Eyes normal inspection. Neck: Normal inspection. C- spine non-tender. CVS: Normal heart rate and rhythm. Heart sounds normal. Respiratory: No respiratory distress. Breath sounds normal. Abdomen: No visible injury. Back: Normal inspection. No tenderness. ROM normal. Skin: Skin intact. Skin warm and dry. Extremities: Left medial ankle: moderate tenderness and swelling and medium sized ecchymosis of the medial malleolus. Limited ROM secondary to pain (diminished plantar flexion, dorsiflexion, inversion and eversion). Neurovascular intact distally. No erythema or laceration. Left foot: swelling and mild tenderness of the proximal aspect of the foot. Neurovascular intact distally. No foot injury. No ankle injury. Foot and ankle exam otherwise negative. Extremities otherwise negative. [place] ANKLE RULES: The need for X- rays is supported by the presence of bony tenderness at the posterior edge or tip of the medial malleolus. Neuro, Vascular and Tendons: Vascular status intact. Sensation intact. Motor intact. Tendon function intact. Gait: Limping gait. Neuro: Oriented X 3.LABS, X-RAYS, AND EKGLt Ankle X-ray: (Ton rice Neal - 10/18/2019 5:29:02 PMnad). The X-rays were interpreted by the radiologist. Interpretation time: 17:29 10/18/2019.PROGRESS AND PROCEDURESCourse of Care: No fx noted on x-ray. Advised RICE, tylenol. Air splint placed. Crutches given. Disposition: Discharged home. Discharge decision based on the following: patient's condition is stable; patient is ambulatory; patient's exam is stable; no abnormal test results; stable condition on repeat evaluation; social support is adequate; transportation is available; follow-up is available; clinical impression is consistent with outpatient treatment.CLINICAL IMPRESSION Sprain of the left ankle.INSTRUCTIONS Apply ice. Use crutches. Wear air splint as needed. Elevate affected areas above chest level. No weight bearing left leg until better. (activity as tolerated. Rest, ice, compression, elevation. No weight bearing until better. you can take tylenol for pain). 3 Clinical Report - Physicians/[facility] Emergency Department [address] [place] [address] Phone #: ext- [phone] 10/18/2019 16:41 Patient: YOSEF MOYA Sex: F : 2000 Age: 19y Warnings: GENERAL WARNINGS: Return or contact your physician immediately if your condition worsens or changes unexpectedly, if not improving as expected, or if other problems arise. Specifically return if problem worsens or fails to resolve. Your Current Medications: Your current home medications have been reviewed. CONTINUE TAKING THE FOLLOWING MEDICATIONS: Vitamins Oral : 1 pill daily. Follow-up: Follow up with your healthcare provider in about three days. Call for an appointment. Reason for referral: evaluation and treatment. Summary of care provided to patient via paper. Understanding of the discharge instructions verbalized by patient.(Electronically signed by CARLA Gomez 10/18/2019 17:50) Name Value Range Interpretation Code Description Data Shannon rce(s) Supporting Document(s) ID Date Data Source [id number] 08/26/2019 10:48:00 [place] [address] ---------NAME--------- NUMBER SEX AGE ADMIT DISC. XRAY# F/C TYPE GRIFFIN Taylor [id number] F 19 08/26/19 [id number] O/P DATE OF : 2000 M/R# [id number] PH#: [phone] [id number] LOCATION: TRANSCRIBED: 08/26/19 22:48 IF US OB LIMITED 1OR MORE [id number] COMPLETED:08/26/19 21:41 ADB [id number] {REASON FOR OBS: abddominal cramping PHYSICIAN: LIT LÓPEZ ======== R A D I O L O G Y R E P O R T PATIENT HISTORY:US OB LIMITED ABD PainUS PelvisHistory:US OB LIMITED ABD Pain (Hx)Technique:US OB LIMITED 1OR MORE FETUSESComparison:No comparison study available.Findings:Limited examSingleton intrauterine identified.There is a posterior placenta noted.Presentation is breech. heart rate is 156 BPM.NAVEEN is 15.8 cm.IMPRESSIONS: heart rate is 156 BPM.NAVEEN is 15.8 cm.Electronically Signed By:Cristhian Burton M.D. , RadiologistDate/Time: 08/26/19 22:48 Name Value Range Interpretation Code Description Data Shannon rce(s) Supporting Document(s) ID Date Data Source [id number] 08/30/2019 01:20:00 PM EDT [facility] Name Value Range Interpretation Code Description Data Shannon rce(s) Supporting Document(s) SOURCE: Genital [facility] Chlamydia trachomatis rRNA [Presence] in Unspecified specimen by Probe and target amplification method Negative Negative [facility] Neisseria gonorrhoeae rRNA [Presence] in Unspecified specimen by Probe and target amplification method Negative Negative [facility] Trichomonas vaginalis DNA [Presence] in Unspecified specimen by Probe and target amplification method Negative Negative [facility] ID Date Data Source [id number] 08/29/2019 07:38:00 AM EDT [facility] Name Value Range Interpretation Code Description Data Shannon rce(s) Supporting Document(s) SOURCE: Genital [facility] Ibis sp rRNA [Presence] in Vaginal fluid by DNA probe Negative N egative [facility] Gardnerella vaginalis rRNA [Presence] in Genital specimen by DNA probe Negative Negative [facility] Trichomonas vaginalis rRNA [Presence] in Genital specimen by DNA probe Negative Negative [facility] ID Date Data Source [id number] 08/28/2019 06:56:[address] [facility] 25,000 CFU/MLLactobacilli no senst done Name Value Range Interpretation Code Description Data Shannon rce(s) Supporting Document(s) ID Date Data Source [id number] 08/28/2019 07:57:00 PM EDT [facility] Name Value Range Interpretation Code Description Data Shannon rce(s) Supporting Document(s) CULTURE URINE [facility] _CULTURE URINE_ Specimen site Narrative CLEAN CATCH [facility] Result: [place] [address] CLIA# [id number] SEE SCANNED REPORT ID Date Data Source [id number] 08/26/2019 09:06:00 PM EDT [facility] Name Value Range Interpretation Code Description Data Shannon rce(s) Supporting Document(s) URINALYSIS [facility] regulo URINALYSIS SOURCE R [facility] COLOR yellow NORMAL: Yellow [facility] CLARITY clear NORMAL: Clear [facility] Specific gravity of Urine by Test strip 1.030 1.001 - 1.030 [facility] pH 5 5 - 9 [facility] Glucose [Mass/volume] in Urine by Test strip 250 NORMAL: Negat dulce A [facility] Bilirubin.total [Presence] in Urine by Test strip NEG NORMAL: Negative [facility] Ketones [Presence] in Urine by Test strip 15 NORMAL: Negative [facility] Protein [Mass/volume] in Urine by Test strip 30 NORMAL: Negat dulce [facility] Nitrite [Presence] in Urine by Test strip NEG NORMAL: Negative [facility] BLOOD 25 NORMAL: Negative [facility] Leukocyte esterase [Presence] in Urine by Test strip 25 AURA L: Negative [facility] Urobilinogen [Mass/volume] in Urine by Test strip NOR less suzan n 1.0 mg/dL [facility] MICROSCOPIC See Below [facility] ital WBC 3 - 5 NORMAL: NONE SEEN [facility] Erythrocytes [#/volume] in Urine by Test strip 0 - 1 NORMAL: NON E SEEN [facility] EPITHELIAL MODERATE NORMAL: NONE SEEN A [facility] Bacteria [Presence] in Urine sediment by Light microscopy 2+ MOD NORMAL: NONE SEEN A [facility] Crystals [type] in Urine sediment by Light microscopy See Below [facility] CALCIUM OX 2+ NORMAL: NONE SEEN A [facility] ID Date Data Source [id number] 07/29/2019 12:00:00 AM EST [facility] Kody Matta DO Patient Name: YOSEF MOYA[address] [facility] 2000[facility] [id number] Date of Exam: 07/29/2019#: Fax: [phone] EXAM: US OB 2ND & 3RD TRIMESTER, COMPLETE- SINGLE FETUSCLINICAL INFORMATION: Supervision of .Realtime sonographic evaluation of the gravid uterus is performed.There is a single living intrauterine gestation.Estimated gestational age is 21 weeks 3 days, EDC 12/06/19.Today's measurements indicate appropriate growth.Biometry and growth:BPD: 5.2 cm = 21 weeks 5 days, 60th percentileHC: 19.7 cm = 21 weeks 6 days, 65th pe rcentileAC: 16.9 cm = 21 weeks 6 days, 61st percentileFL: 3.6 cm = 21 weeks 3 days, 50th percentileHL: 3.5 cm = 22 weeks 0 days, 60th percentileHC/AC ratio: 1.17, within normal range of 1.05 to 1.24.Estimated weight: 444 grams at the 56th percentileCervix is closed and measures 5.3 cm in length.Visualized anatomy is grossly unremarkable:Lateral ventricles, posterior fossa, upper lip, 4-chamber heart,ventricular out-flow tracts, stomach, kidneys, bladder, cord insertion,3-vessel cord, spine. position variable.Placenta posterior and Grade 1 with no previa or abrupti on.Amniotic fluid within normal limits. heart motion is identified. heart rate was not recorded due totechnologist error.Accredited by the [employer] in Obstetrical Ultrasound.GET Daniel/Geraldine you for referring YOSEF MOYA to our office. Electronically Signed - TREVOR KUO MD 07/30/19 11:21 Name Value Range Interpretation Code Description Data Shannon rce(s) Supporting Document(s) Procedure Social History Code Duration Value Status Description Data Source(s ) Smoking 06/18/2020 12:00:00 AM EST Patient has never smoked co mpleted Patient has never smoked [facility] ([facility] Smoking 11/08/2019 04:47:00 AM EDT Denies Ever Smoked complete d Denies Ever Smoked [facility] Smoking 11/05/2019 07:56:00 PM EDT Denies Ever Smoked complete d Denies Ever Smoked [facility] Vital Signs ID Date Data Source UNK Name Value Range Interpretation Code Description Data Source(s) Oxygen saturation in Arterial blood by Pulse oximetry 97 % 97 % [facility] ([facility]) Body mass index (BMI) [Ratio] 49.7 kg/m2 49.7 k g/m2 [facility] ([facility]) Body weight 308.00 [lb_av] 308.00 [lb_av] [facility] ([facility]) Body height 66 [in_i] 66 [in_i] [facility] ([facility]) 5'6" Body temperature 97.0 [degF] 97.0 [degF] [facility] ([facility]) Heart rate 105 /min 105 /min [facility] ([facility]) Diastolic blood pressure 70 mm[Hg] 70 mm[Hg] [facility] ([facility]) Systolic blood pressure 132 mm[Hg] 132 mm[Hg] [facility] ([facility]) Body mass index (BMI) [Ratio] 34.3 kg/m2 34.3 k g/m2 [facility] Heart rate 99 /min 99 /min [facility] ([facility] Diastolic blood pressure 84 mm[Hg] 84 mm[Hg] [facility] ([facility] Systolic blood pressure 122 mm[Hg] 122 mm[Hg] [facility] ([facility] Body weight 219.00 [lb_av] 219.00 [lb_av] [facility] ([facility] Body height 67 [in_i] 67 [in_i] [facility] ([facility] 5'7" Body temperature 36.9 sesar Normal (applies to non-numeric results) 36.9 sesar [facility] Respiratory rate 18 min Normal (applies to non-numeric results) 18 min [facility] Heart rate 94 min Normal (applies to non-numeric resul ts) 94 min [facility] Diastolic blood pressure 78 mm[Hg] Normal (applies to non-numeric results) 78 mm[Hg] [facility] Systolic blood pressure 130 mm[Hg] Normal (applies t o non-numeric results) 130 mm[Hg] [facility] Deprecated Oxygen saturation in Capillary blood by Oximetry 100 % Normal (applies to non-numeric results) 100 % [facility] Body weight Measured 274 [lb_av] Normal (applies to n on-numeric results) 274 [lb_av] [facility] Body temperature 37.1 sesar Normal (applies to non-numeric results) 37.1 sesar [facility] Respiratory rate 20 min Normal (applies to non-numeric results) 20 min [facility] Deprecated Oxygen saturation in Capillary blood by Oximetry 99 % Normal (applies to non-numeric results) 99 % [facility] Body height 169.51898011069229 cm Normal (applies to non-numeric results) 169.11585459372353 cm [facility] Heart rate 101 min Normal (applies to non-numeric resul ts) 101 min [facility] Body mass index (BMI) [Ratio] 42.9 kg/m2 No rmal (applies to non-numeric results) 42.9 kg/m2 [facility] Diastolic blood pressure 86 mm[Hg] Normal (applies to non-numeric results) 86 mm[Hg] [facility] Systolic blood pressure 148 mm[Hg] Normal (applies t o non-numeric results) 148 mm[Hg] [facility] Body surface area 2.30 m2 2.30 m2 [facility]) Body mass index (BMI) [Ratio] 42.6 kg/m2 42.6 k g/m2 [facility]) Body height 67 [in_i] 67 [in_i] [facility]) 5'7" Body weight 123.379 kg 123.379 kg [facility] ([facility]) Body weight 272.00 [lb_av] 272.00 [lb_av] [facility] ([facility]) office visit 10/10/19 Body height 67 [in_i] 67 [in_i] [facility] ([facility] 5'7" Body weight 265.00 [lb_av] 265.00 [lb_av] [facility] ([facility] ) Body mass index (BMI) [Ratio] 41.5 kg/m2 41.5 k g/m2 [facility] ([facility] ) ID Date Data Source [id number] 11/18/2019 09:56:13 AM EDT [facility] Name Value Range Interpretation Code Description Data Source(s) WEIGHT RECORDED 300.00 pounds 300.00 pounds [facility] Height 67 Inches 067 Inches [facility] ID Date Data Source [id number] 08/30/2019 01:21:09 PM EDT [facility] Name Value Range Interpretation Code Description Data Source(s) WEIGHT RECORDED 272.00 pounds 272.00 pounds [facility] Height 68 Inches 068 Inches [facility]
[2020-08-01] MEDS ORDERED: METF-838 (19:41)
[2020-08-01] MEDS ORDERED: KELN1TAB (19:41)
[2020-08-01] MEDS ORDERED: FLUO20CA22 (19:41)
--- OUTSIDE RECORDS SUMMARY | 2020-08-01 20:52 | CCD ---
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 [Mass/volume] in Serum or Plasma 9.2 MG/DL 8.4 - 10.2 [facility] Bilirubin.total [Mass/volume] in Serum or Plasma <0.7 MG/DL 0.2 - 1.3 [facility] Alkaline phosphatase [Enzymatic activity/volume] in Serum or Plasma 69 U/L 38 - 126 [facility] Aspartate aminotransferase [Enzymatic activity/volume] in Serum or Plasma 29 U/L 5 - 40 [facility] Alanine aminotransferase [Enzymatic activity/volume] in Seru m or Plasma 29 U/L 7 - 56 [facility] Anion gap 3 in Serum or Plasma 16.0 mmol/L 8.0 - 16.0 [facility] AGE 20 yrs [facility] NON-AA GFR >60 mL/min [facility] ital AFR AMER GFR >60 mL/min [facility] Ho spital Male GFR In terprentation [...] >32 mL/min Normal ID Date Data Source [id number] 06/29/2020 08:15:00 PM EST [facility] Name Value Range Interpretation Code Description Data Shannon rce(s) Supporting Document(s) HCG SERUM QUAL NEGATIVE NORMAL: NEGATIVE [facility] HCG SERUM QL REENTER NEGATIVE NORMAL: NEGATIVE [facility] { KIT LOT # [id number] ){ KIT EXP DATE 03-24-21 ){ PROCEDURAL CONTROL VALID ) ID Date Data Source [id number] 06/29/2020 08:14:00 PM EST [facility] Name Value Range Interpretation Code Description Data Shannon rce(s) Supporting Document(s) CBC W/AUTOMATED DIFF [facility] COMPLETE BLOOD COUNT Leukocytes [#/volume] in Blood by Automated count 11.2 10^3/uL 4.2 - 11.0 H [facility] Erythrocytes [#/volume] in Blood by Automated count 4.99 10^6/uL 4. 20 - 5.40 [facility] Hemoglobin [Mass/volume] in Blood 14.9 g/dL 12.0 - 16.0 [facility] Hematocrit [Volume Fraction] of Blood by Automated count 42.9 % 3 7.0 - 47.0 [facility] Erythrocyte mean corpuscular volume [Entitic volume] by Auto mated count 86.0 fL 81.0 - 101 [facility] Erythrocyte mean corpuscular hemoglobin [Entitic mass] by Automated count 29.9 pg 27.0 - 34.0 [facility] Erythrocyte mean corpuscular hemoglobin concentration [Mass/volume] by Automated count 34.7 g/dL 31.0 - 36.0 [facility] Erythrocyte distribution width [Ratio] by Automated count 12.3 % 11.5 - 14.5 [facility] Platelets [#/volume] in Blood by Automated count 395 10^3/uL 150 - 45 0 [facility] Platelet mean volume [Entitic volume] in Blood by Automated count 8.5 fL 7.4 - 10.4 [facility] Neutrophils/100 leukocytes in Blood by Automated count 59.5 % 37. 0 - 80.0 [facility] Lymphocytes/100 leukocytes in Blood by Manual count 33.2 % 25.0 - 40.0 [facility] Monocytes/100 leukocytes in Blood by Automated count 4.7 % 3.0 - 8.0 [facility] Eosinophils/100 leukocytes in Blood by Automated count 1.8 % 0.0 - 7.0 [facility] Basophils/100 leukocytes in Blood by Automated count 0.4 % 0.0 - 2.5 [facility] %IG 0.4 % 0.0 - 0.0 H [facility] Hospit al %NRBC 0.0 % 0.0 - 0.0 [facility] al Neutrophils [#/volume] in Blood by Automated count 6.69 10^3/uL 2.00 - 6.90 [facility] Lymphocytes [#/volume] in Blood by Automated count 3.73 10^3/uL 0.60 - 3.40 H [facility] Monocytes [#/volume] in Blood by Automated count 0.53 10^3/uL 0.00 - 0.90 [facility] Eosinophils [#/volume] in Blood by Automated count 0.20 10^3/uL 0.00 - 0.70 [facility] Basophils [#/volume] in Blood by Automated count 0.04 10^3/uL 0.00 - 0.20 [facility] #IG 0.04 10^3/uL 0.00 - 0.10 [facility] H ospital #NRBC 0.00 10^3/uL 0.00 - 0.00 [facility] H ospital MANUAL DIFF NOT INDICATED [facility] RBC MORPH NOT INDICATED [facility] spital ID Date Data Source [id number] 06/29/2020 07:56:00 PM EST [facility] Name Value Range Interpretation Code Description Data Shannon rce(s) Supporting Document(s) Lactate [Moles/volume] in Serum or Plasma 3.5 MMOL/L 0.2 - 2.2 [facility] CALL/ READ BACK CARLOS MANUEL [facility] BY: STAR [facility] Hospit al DATE/TIME [facility] ital ID Date Data Source [id number] 06/29/2020 08:21:00 PM EST [facility] Name Value Range Interpretation Code Description Data Shannon rce(s) Supporting Document(s) URINALYSIS [facility] Hospi regulo URINALYSIS SOURCE Clean Catch [facility] ital COLOR yellow NORMAL: Yellow [facility] H ospital CLARITY clear NORMAL: Clear [facility] Ho spital Specific gravity of Urine by Test strip 1.025 1.001 - 1.030 [facility] pH 5 5 - 9 [facility] Glucose [Mass/volume] in Urine by Test strip 250 NORMAL: Negat dulce [facility] Bilirubin.total [Presence] in Urine by Test strip NEG NORMAL: Negative [facility] Ketones [Presence] in Urine by Test strip 5 NORMAL: Negative [facility] Protein [Mass/volume] in Urine by Test strip 30 NORMAL: Negat [facility] Nitrite [Presence] in Urine by Test strip NEG NORMAL: Negative [facility] BLOOD 50 NORMAL: Negative [facility] Leukocyte esterase [Presence] in Urine by Test strip NEG AURA L: Negative [facility] Urobilinogen [Mass/volume] in Urine by Test strip NOR less suzan n 1.0 mg/dL [facility] MICROSCOPIC See Below [facility] ital Erythrocytes [#/volume] in Urine by Test strip 5 - 7 NORMAL: NON E SEEN A [facility] EPITHELIAL MODERATE NORMAL: NONE SEEN A [facility] Mucus [Presence] in Urine sediment by Light microscopy Trace NORMAL: NONE SEEN [facility] Casts [#/area] in Urine sediment by Microscopy low power field See Be low [facility] Hyaline casts [#/area] in Urine sediment by Microscopy low p ower field 1-3 NORMAL: None Seen A [facility] ID Date Data Source [id number] 05/20/2020 03:50:00 PM EST [facility] 1 OrderSheet [facility] Emergency Department [address] [place] [address] Phone #: ext- [phone] 05/20/2020 15:17 Patient: [...] rce(s) Supporting Document(s) ID Date Data Source [id number] 05/20/2020 03:50:00 PM EST [facility] 1 Medication Reconciliation Report [facility] Emergency Department [address] [place] [address] Phone #: ext- [phone] 05/20/2020 15:17 Patient: YOSEF MOYA Sex: F : 2000 Age: 20yWeight: 122.4 kgHeight/Length: 67 in.BMI: 42.3ALLERGIES: No Known Drug AllergyThe patient's Home Medications are listed below:NONE.The source(s) of the original Home Medication information:patientThe following Medications were given to the patient in the Emergency Department:Silvadene [Topical] Topical 1 application, administered: 05/20/2020 4:04:00 PMThe following Medications were prescribed to the patient:[place] 5 mg- 325 mg tablet Take 1 tablet three times a day for 2 days -- Dispense 6 tablet. Refills: 0.Substitution permitted.Pharmacy - Counts Include [facility] [address] ; [place] [address]. FaxNumber: . -- Anurag Riley P.A.-C Name Value Range Interpretation Code Description Data Shannon rce(s) Supporting Document(s) ID Date Data Source [id number] 05/20/2020 03:50:00 PM [place] [address] Medication Administration Record [facility] Emergency Department [address] [place] [address] Phone #: ext- [phone] 05/20/2020 15:17 Patient: YOSEF MOYA Sex: F : 2000 Age: 20yWeight: 122.4 kgHeight/Length: 67 inBMI: 42.3ALLERGIES: No Known Drug Allergy Date/Time Medication Administered Medication OrderedGiven SILVADENE [TOPICAL] (SILVER Silvadene Topical 1 pfdniabehay01:04 05/20/2020 SULFADIAZINE)Suri Ibarra R.N. Dose: 1 application Cream Topical Name Value Range Interpretation Code Description Data Shannon rce(s) Supporting Document(s) ID Date Data Source [id number] 05/20/2020 03:50:00 PM [facility] 1 General Instructions [facility] Emergency Department [address] [place] [address] Phone #: ext- [phone] 05/20/2020 15:17 Patient: [...] during your visit. Do not driveor operate [employer].CONTROLLED SUBSTANCE WARNINGS.GENERAL WARNINGS: Return or contact your physician immediately if your condition worsens orchanges unexpectedly, if not improving as expected, or if other problems arise.Your Current Medications: .No home medication.Prescription monitor program consulted by me. Prescription does not exceed state maximum supply ofmedicationsPrescription Medications:Bluff[place] 5 mg-325 mg tablet Take 1 tablet three times a day for 2 days -- Dispense 6 tablet. Refills: 0.Substitution permitted.Pharmacy - Counts Include [facility] [address] ; [place] [address]. .Follow-up:Return to the emergency department as needed. Follow up with your healthcare provider in about twodays if not better. Call for an appointment.Understanding of the discharge instructions verbalized by patient. 2 General Instructions [facility] Emergency Department [address] [place] [address] Phone #: ext- [phone] 05/20/2020 15:17 Patient: YOSEF MOYA Sex: F : 2000 Age: 20yLimit use of your left hand for one weeks.(Electronically signed by Anurag Riley P.A.-C 05/20/2020 21:29) Name Value Range Interpretation Code Description Data Shannon rce(s) Supporting Document(s) ID Date Data Source [id number] 05/20/2020 03:50:00 PM EST [facility] 1 Clinical Report - Nurses [facility] Emergency Department [address] [place] [address] Phone #: ext- [phone] 05/20/2020 15:17 Patient: [...] to ER with fingers in glasswith water.).Treatment 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 --15:47 05/20/20 Suri Ibarra R.N.15:39 05/20/20. BP: [...] of CRE. 2 Clinical Report - Nurses [facility] Emergency Department [address] [place] [address] Phone #: ext- [phone] 05/20/2020 15:17 Patient: [...] LEVEL 4. 3 Clinical Report - Nurses [facility] Emergency Department [address] [place] [address] Phone #: ext- [phone] 05/20/2020 15:17 [id number] Sex: F : 2000 Age: 20y Rounding: [...] --16:43 05/20/20 Wang MAYO Tech, MINO Jj [facility]1 Departure time: late entry - 16:50 05/20/2020. Condition at departure: stable. No learning barriers present. Discharge instructions provided and revie wed with the patient. Reviewed warnings (please see paper copy). Reviewed medication(s) side effects, precautions, dosing and course information. Prescription(s) sent electronically to pharmacy ([employer]). Reviewed wound care instructions. Activity restrictions reviewed. Work note given. Patient verbalized understanding. Written instructions provided in Cuban. The patient was discharged by the physician customer relations assistant. She was discharged home and accompanied by nurse companion. She left ambulatory and via private vehicle. Admissions Clinician driving. --16:51 05/20/20 Suri Ibarra R.N. 16:51 05/20/20. Pain level now 2/10. --16:51 05/20/20 Suri Ibarra R.N.Locked/Released at 05/20/2020 16:52 by Suri Ibarra R.N. Name Value Range Interpretation Code Description Data Shannon rce(s) Supporting Document(s) ID Date Data Source [id number] 05/20/2020 03:50:00 PM [facility] 1 Clinical Report - Physicians/Mid Levels [facility] Emergency Department [address] [place] [address] Phone #: ext- [phone] 05/20/2020 15:17 Patient: [...] Allergy. 2 Clinical Report - Physicians/Mid Levels [facility] Emergency Department [address] [place] [address] Phone #: ext- [phone] 05/20/2020 15:17 Patient: YOSEF MOYA [facility]#: [id number] Sex: F : 2000 Age: 20ySOCIAL HISTORYCurrent [...] questions. 3 Clinical Report - Physicians/Mid Levels [facility] Emergency Department [address] [place] [address] Phone #: ext- [phone] 05/20/2020 15:17 Patient: [...] visit. Do not drive or operate dangerous [employer]. CONTROLLED SUBSTANCE WARNINGS. GENERAL WARNINGS: Return or contact your physician immediately if your condition worsens or changes unexpectedly, if not improving as expected, or if other problems arise. Your Current Medications: . No home medication. Prescription monitor program consulted by me. Prescription does not exceed state maximum supply of medications Prescription Medications: [place] 5 mg-325 mg tablet Take 1 tablet three times a day for 2 days -- Dispense 6 tablet. Refills: 0. Substitution permitted. Pharmacy - Counts Include [facility] [address] ; [place] [address]. . 4 Clinical Report - Physicians/Mid Levels [facility] Emergency Department [address] [place] [address] Phone #: ext- [phone] 05/20/2020 15:17 Patient: [...] rce(s) Supporting Document(s) ID Date Data Source [id number] 04/02/2020 10:48:00 PM EDT [facility] 1 Medication Reconciliation Report [facility] Emergency Department [address] [place] [address] Phone #: ext- [phone] 04/02/2020 22:45 Patient: YOSEF MOYA Sex: F : 2000 Age: 20yWeight: 124.7 kgHeight/Length: 67 in.BMI: 43.1ALLERGIES: advil liquid gelThe patient's Home Medications are listed below:NONE.The source(s) of the original Home Medication information:Not obtained.The following Medications were given to the patient in the Emergency Department:None.The following Medications were prescribed to the patient:None. Name Value Range Interpretation Code Description Data [facility](s) Supporting Document(s) ID Date Data Source [id number] 04/02/2020 10:48:00 PM EDT [place] [address] Medication Administration Record [facility] Emergency Department [address] [place] [address] Phone #: ext- [phone] 04/02/2020 22:45 Patient: YOSEF MOYA Sex: F : 2000 Age: 20yWeight: 124.7 kgHeight/Length: 67 inBMI: 43.1ALLERGIES: advil liquid gelDate/Time Medication Administered Medication Ordered Name Value Range Interpretation Code Description Data Shannon rce(s) Supporting Document(s) ID Date Data Source [id number] 04/02/2020 10:48:00 PM EDT [facility] 1 General Instructions [facility] Emergency Department [address] [place] [address] Phone #: ext [phone] 04/02/2020 22:45 [id number] Sex: F : 2000 Age: 20yEssential hypertension. [...] care.Follow-up with: Roosevelt Velez MD, Cardiology, , [address] [place] [address], [address] Follow up in two days even if well. Call for an appointment. Reason for referral: evaluation and treatment.Summary of care provided to patient via paper. ADDITIONAL INFORMATION 2 General Instructions [facility] Emergency Department [address] [place], [place] [address] Phone #: ext- [phone] 04/02/2020 22:45 ----- Patient: YOSEF MOYA [facility]#: [id number] Sex: F : 2000 Age: 20yHigh Blood [...] monitors at most pharmacies. 3 General Instructions [facility] Emergency Department [address] [place] [address] Phone #: ext- [phone] 04/02/2020 22:45 Patient: YOSEF MOYA Sex: F : 2000 Age: 20yThe [place] Of [place] Heart Association recommends the following guidelines for [...] of 110 or higher 4 General Instructions [facility] Emergency Department [address] [place] [address] Phone #: ext- [phone] 04/02/2020 22:45 Patient: [...] face You have problems speaking or seeing [phone] [employer] [place] [address]. All rights reserved. This information is not intended as asubstitute for professional medical care. Always follow your healthcare professional's instructions. You have been given the following additional information: Hypertension, To Be Confirmed No strenuous activity until better.(Electronically signed by Dimas Huggins M.D. 04/03/2020 00:51) Name Value Range Interpretation Code Description Data Shannon rce(s) Supporting Document(s) ID Date Data Source [id number] 04/02/2020 10:48:00 PM EDT [facility] 1 Clinical Report - Nurses [facility] Emergency Department [address] [place] [address] Phone #: ext- [phone] 04/02/2020 22:45 Patient: [...] Dang R.N.History 2 Clinical Report - Nurses [facility] Emergency Department [address] [place] [address] Phone #: ext- [phone] 04/02/2020 22:45 Patient: [...] Dang R.N. 3 Clinical Report - Nurses [facility] Emergency Department [address] [place] [address] Phone #: ext- [phone] 04/02/2020 22:45 Patient: YOSEF MOYA Sex: F : 2000 Age: 20yDISPOSITION / DISCHARGE No learning barriers present. Discharge instructions provided and reviewed with the patient. Reviewed warnings. Reviewed medication(s). Treatments reviewed. Reviewed referral to a senior wealth advisor. Work note given. The patient was discharged [...] rce(s) Supporting Document(s) ID Date Data Source [id number] 04/02/2020 10:48:00 PM EDT [facility] 1 Clinical Report - Physicians/Mid Levels [facility] Emergency Department [address] [place] [address] Phone #: ext- [phone] 04/02/2020 22:45 Patient: [...] delivery and when she had f/u w SPORTS MEDICINE PHYSICIAN 2 days ago, BP was very elevated, does not remember numbers, so she was advised to f/u w IT APPLICATION DEVELOPMENT MANAGER; pt has appt w a IT APPLICATION DEVELOPMENT MANAGER in May and was stressed tonight so [...] Allergies: 2 Clinical Report - Physicians/Mid Levels [facility] Emergency Department [address] [place] [address] Phone #: ext- [phone] 04/02/2020 22:45 Patient: [...] asymptomatic and wants areferral to see a IT APPLICATION DEVELOPMENT MANAGER; will refer to Dr. Velez, cardiology; pt [...] determined). 3 Clinical Report - Physicians/Mid Levels [facility] Emergency Department [address] [place] [address] Phone #: ext- [phone] 04/02/2020 22:45 [facility]: [id number] Sex: F : 2000 Age: 20yINSTRUCTIONS No [...] Follow-up with: Roosevelt Velez MD, Cardiology, , [address] [place] [address], [facility] Follow up in two days even if well. Call for an appointment. Reason for referral: evaluation and treatment. Summary of care provided to patient via paper.(Electronically signed by Dimas Huggins M.D. 04/03/2020 00:51) Name Value Range Interpretation Code Description Data Shannon rce(s) Supporting Document(s) ID Date Data Source [id number] 11/18/2019 09:55:00 [place] [address] PHONE: [phone] FAX: [phone] Name .................. : GRIFFIN YOSEF [place] Acct Number.................. : [id number] ROOM. ................. : 002-1 Number ................... : [id number] Stay type ............. : O/P Discharge Date......... ... : 10/25/19 Admit Date ......... : 10/24/19 Admit Phys .................... : JOSE ANTONIO LUNA Date of ....... : 2000 Family Phys ................... : NON STAFF Phone .................. : [phone] Age ................................ : 19 Film# .................. .:[id number] Sex ................................. : F Unsigned transcriptions are preliminary reports and do not represent a medical or legal document US OB BIOPHYSICAL PROFILE [id number] COMPLETE:10/24/19 22:02 ADB 26887 (REASON FOR OBS: BIOPHYSICAL PROFILE US OB LIMITED 1OR MORE FETUSE 08269 COMPLETE:10/24/19 22:02 ADB 15501 (REASON FOR OBS: NAVEEN AND BPP BIOPHYSICAL [...] 14:16, Dictation Date: Page 1 of 2 [place] [address] PHONE: [phone] FAX: [phone] Name .................. : GRIFFIN [place] Acct Number.................. : [id number] ROOM. ................. : 002-1 MR Number ................... : [id number] Stay type ............. : O/P Discharge Date......... ... : 10/25/19 Admit Date ......... : 10/24/19 Admit Phys .................... : JOSE ANTONIO LUNA Date of ....... : 2000 Family Phys ................... : NON STAFF Phone .................. : [phone] Age ................................ : 19 Film# .................. .:[id number] Sex ................................. : F Unsigned transcriptions are preliminary reports and do not represent a medical or legal document US OB BIOPHYSICAL PROFILE [id number] COMPLETE:10/24/19 22:02 ADB [id number] (REASON FOR OBS: BIOPHYSICAL PROFILE US OB LIMITED 1OR MORE FETUSE [id number] COMPLETE:10/24/19 22:02 ADB [id number] (REASON FOR OBS: NAVEEN AND BPP Copy for: 710 MED REC DISCHARGED Copy for: 710 MED REC DISCHARGED Page 2 of 2 Name Value Range Interpretation Code Description Data Shannon rce(s) Supporting Document(s) ID Date Data Source [id number] 11/18/2019 09:55:00 AM EDT [facility] [place] [address] PHONE: [phone] FAX: [phone] Name .................. : GRIFFIN Taylor Acct Number.................. : [id number] ROOM. ................. : 002-1 MR Number ................... : [id number] Stay type ............. : O/P Discharge Date......... ... : 10/25/19 Admit Date ......... : 10/24/19 Admit Phys .................... : JOSE ANTONIO LUNA Date of ....... : 2000 Family Phys ................... : NON STAFF Phone .................. : [phone] Age ................................ : 19 Film# .................. .:[id number] Sex ................................. : F Unsigned transcriptions are preliminary reports and do not represent a medical or legal document US OB BIOPHYSICAL PROFILE [id number] COMPLETE:10/24/19 22:02 ADB [id number] (REASON FOR OBS: BIOPHYSICAL PROFILE US OB LIMITED 1OR MORE FETUSE 91466 COMPLETE:10/24/19 22:02 ADB [id number] (REASON FOR OBS: NAVEEN AND BPP BIOPHYSICAL [...] By Juanjose Camilo M.D. , 10/25/19 10:02, [facility] Transcribe Initials: SSR, Transcribe Date: 10/25/19 07:48, Dictation Date: ADDENDUM: Amniotic fluid index measures 17.2 cm. Examination dictated by CARLA Worrell. Examination was reviewed with Juanjose Camilo MD, radiologist at the time of this dictation. Electronically Reviewed and Signed By Juanjose Camilo M.D. , 11/18/19 09:55, [facility] Transcribe Initials: SSR, Transcribe Date: 11/15/19 14:16, Dictation Date: Page 1 of 2 [place] [address] PHONE: [phone] FAX: [phone] Name .................. : GRIFFIN NAVAS Juan M Acct Number.................. : [id number] ROOM. ................. : 002-1 MR Number ................... : [id number] Stay type ............. : O/P Discharge Date......... ... : 10/25/19 Admit Date ......... : 10/24/19 Admit Phys .................... : JOSE ANTONIO LUNA Date of ....... : 2000 Family Phys ................... : NON STAFF Phone .................. : [phone] Age ................................ : 19 Film# .................. .:[id number] Sex ................................. : F Unsigned transcriptions are preliminary reports and do not represent a medical or legal document OB BIOPHYSICAL PROFILE [id number] COMPLETE:10/24/19 22:02 ADB [id number] (REASON FOR OBS: BIOPHYSICAL PROFILE US OB LIMITED 1OR MORE FETUSE 95088 COMPLETE:10/24/19 22:02 ADB [id number] (REASON FOR OBS: NAVEEN AND BPP Copy for: 710 MED REC DISCHARGED Copy for: 710 MED REC DISCHARGED Page 2 of 2 Name Value Range Interpretation Code Description Data Shannon rce(s) Supporting Document(s) ID Date Data Source [id number] 11/09/2019 01:36:21 PM EDT [facility] [place] Name Value Range Interpretation Code Description Data Shannon rce(s) Supporting Document(s) POC GLUCOSE 102 mg/dL (70-99) H [facility] PERFORMED BY CLINICAL STAFF ID Date Data Source [id number] 11/08/2019 09:35:38 PM EDT [facility] [place] Name Value Range Interpretation Code Description Data Shannon rce(s) Supporting Document(s) POC GLUCOSE 109 mg/dL (70-99) H [facility] PERFORMED BY CLINICAL STAFF ID Date Data Source [id number] 11/08/2019 04:59:41 PM EDT [facility] Name Value Range Interpretation Code Description Data Shannon rce(s) Supporting Document(s) POC GLUCOSE 91 mg/dL (70-99) [facility] NOTIFIED NURSEPERFORMED BY CLINICAL S TAFF ID Date Data Source [id number] 11/08/2019 01:00:59 PM EDT [facility] [place] Name Value Range Interpretation Code Description Data Shannon rce(s) Supporting Document(s) POC GLUCOSE 123 mg/dL (70-99) H [facility] PERFORMED BY CLINICAL STAFF ID Date Data Source [id number] 11/08/2019 10:07:32 AM EDT [facility] Name Value Range Interpretation Code Description Data Shannon rce(s) Supporting Document(s) POC GLUCOSE 90 mg/dL (70-99) [facility] PERFORMED BY CLINICAL STAFF ID Date Data Source [id number] 11/08/2019 08:29:05 AM EDT [facility] Name Value Range Interpretation Code Description Data Shannon rce(s) Supporting Document(s) LDH 178 U/L (84-246) [facility] ID Date Data Source [id number] 11/08/2019 08:29:05 AM EDT [facility] Name Value Range Interpretation Code Description Data Shannon rce(s) Supporting Document(s) SODIUM 142 mmol/L (136-145) [facility] POTASSIUM 3.9 mmol/L (3.6-5.2) [facility] CHLORIDE 111 mmol/L (100-108) H [facility] CO2 23 mmol/L (22-31) [facility] ANION GAP 8 mmol/L (7-16) [facility] UREA NITROGEN 19 mg/dL (7-24) [facility] CREATININE 0.83 mg/dL (0.60-1.00) [facility] BUN/CREAT RATIO 22.9 RATIO (10.0-20.0) H [facility] GLUCOSE 97 mg/dL (70-99) [facility] CALCIUM 8.3 mg/dL (8.4-10.2) L [facility] TOTAL PROTEIN 5.3 g/dL (6.4-8.2) L [facility] ALBUMIN 2.4 g/dL (3.5-4.6) L [facility] GLOBULIN 2.9 g/dL (2.7-4.3) [facility] ALB/GLOB RATIO 0.8 RATIO [facility] ALKALINE PHOSPHATASE 96 U/L (45-117) [facility] BILIRUBIN,TOTAL 0.2 mg/dL (0.0-1.0) [facility] PLEASE NOTE:Total bilirubin results may be falselyelevated in patients taking Eltrombopag. AST (SGOT) 23 U/L (11-39) [facility] [place] ALT (SGPT) 38 U/L (12-78) [facility] GFR >60 ml/min/1.73m2 (>59) [facility] GFR ( AMER) >60 ml/min/1.73m2 (>59) [facility] GFR INTERPRETATION [facility] [place] --NORMAL KIDNEY FUNCTION OR MILD DISEASE - GFR >OR= 60CHRONIC KIDNEY DISEASE - GFR 15 - 59RENAL FAILURE - GFR <15 Est. GFR calculation based on the MDRDstudy equation, which assumes a steadystate for creatinine. Est. GFR should notbe used for medication dosing. ID Date Data Source [id number] 11/08/2019 08:29:05 AM EDT [facility] [place] Name Value Range Interpretation Code Description Data Shannon rce(s) Supporting Document(s) URIC ACID 6.5 mg/dL (2.6-6.0) H [facility] [place] ID Date Data Source [id number] 11/08/2019 08:18:40 AM EDT [facility] [place] Name Value Range Interpretation Code Description Data Shannon rce(s) Supporting Document(s) HEMOGLOBIN A1C @ 7.8 % (4.0-6.0) H [facility] [place] Performed using Siemens Vandemere immunoassa y.Care must be taken when interpreting [id number] in patients with a hemoglobin variantor decreased erythrocyte lifespan. Values 5.7 - 6.4% suggest prediabetes.Values >=6.5% are diagnostic for diabetes.REFERENCE: DIABETES CARE 2018: 41(S13-S27).PERFORMED AT [address] [facility] [address] EST [place] GLUCOSE 177 mg/dL [facility] [place] ID Date Data Source [id number] 11/08/2019 07:57:01 AM EDT [facility] [place] Name Value Range Interpretation Code Description Data Shannon rce(s) Supporting Document(s) WBC 7.8 10*3/uL (4.1-11.0) [facility] [place] [facility] [place] RBC 3.65 10*6/uL (4.00-5.40) L [facility] HGB 10.8 g/dL (12.0-16.0) L [facility] HCT 32.2 % (36.0-47.0) L [facility] MCV 88.3 fL (80.0-95.0) [facility] MCH 29.6 pg (27.0-32.0) [facility] MCHC 33.5 g/dL (32.0-36.0) [facility] RDW 13.4 % (10.5-14.5) [facility] PLT 378 10*3/uL (150-450) [facility] MPV 6.9 fL (7.1-10.7) L [facility] ID Date Data Source [id number] 11/07/2019 10:23:00 PM EDT [facility] DATE OF EXAM: 11/07/2019EXAM: Venous Dop [...] bilateral lower extremities. Professional interpretation performed at [facility] .End of diagnostic report for accession: [id number] Interpreted: Daniela Light MDTranscribed: 11/07/2019 10:23 PMSigned: 11/07/2019 10:23 PM Daniela Light MD N: [id number] [facility] # [id number] BILL # [id number] Name Value Range Interpretation Code Description Data Shannon rce(s) Supporting Document(s) ID Date Data Source [id number] 11/07/2019 09:11:48 PM EDT [facility] Name Value Range Interpretation Code Description Data Shannon rce(s) Supporting Document(s) LDH 456 U/L (84-246) H [facility] ID Date Data Source [id number] 11/07/2019 09:11:48 PM EDT [facility] Name Value Range Interpretation Code Description Data Shannon rce(s) Supporting Document(s) URIC ACID 6.7 mg/dL (2.6-6.0) H [facility] ID Date Data Source [id number] 11/07/2019 09:11:48 PM EDT [facility] Name Value Range Interpretation Code Description Data Shannon rce(s) Supporting Document(s) SODIUM 142 mmol/L (136-145) [facility] POTASSIUM 4.7 mmol/L (3.6-5.2) [facility] CHLORIDE 112 mmol/L (100-108) H [facility] CO2 23 mmol/L (22-31) [facility] ANION GAP 7 mmol/L (7-16) [facility] UREA NITROGEN 17 mg/dL (7-24) [facility] CREATININE 0.87 mg/dL (0.60-1.00) [facility] BUN/CREAT RATIO 19.5 RATIO (10.0-20.0) [facility] GLUCOSE 98 mg/dL (70-99) [facility] CALCIUM 8.2 mg/dL (8.4-10.2) L [facility] [facility] TOTAL PROTEIN 6.8 g/dL (6.4-8.2) [facility] ALBUMIN 2.5 g/dL (3.5-4.6) L [facility] GLOBULIN 4.3 g/dL (2.7-4.3) [facility] ALB/GLOB RATIO 0.6 RATIO [facility] ALKALINE PHOSPHATASE 107 U/L (45-117) [facility] BILIRUBIN,TOTAL 0.3 mg/dL (0.0-1.0) [facility] [facility] PLEASE NOTE:Total bilirubin results may be falselyelevated in patients taking Eltrombopag. AST (SGOT) 57 U/L (11-39) H [facility] [place] [facility] ALT (SGPT) 51 U/L (12-78) [facility] GFR >60 ml/min/1.73m2 (>59) [facility] GFR ( AMER) >60 ml/min/1.73m2 (>59) [facility] GFR INTERPRETATION [facility] --NORMAL KIDNEY FUNCTION OR MILD DISEASE - GFR >OR= 60CHRONIC KIDNEY DISEASE - GFR 15 - 59RENAL FAILURE - GFR <15 Est. GFR calculation based on the MDRDstudy equation, which assumes a steadystate for creatinine. Est. GFR should notbe used for medication dosing. ID Date Data Source [id number] 11/07/2019 08:47:19 PM EDT [facility] Name Value Range Interpretation Code Description Data Shannon rce(s) Supporting Document(s) WBC 9.6 10*3/uL (4.1-11.0) [facility] [place] [facility] [place] RBC 4.09 10*6/uL (4.00-5.40) [facility] [facility] HGB 12.2 g/dL (12.0-16.0) [facility] HCT 36.1 % (36.0-47.0) [facility] MCV 88.1 fL (80.0-95.0) [facility] MCH 29.8 pg (27.0-32.0) [facility] MCHC 33.9 g/dL (32.0-36.0) [facility] RDW 13.6 % (10.5-14.5) [facility] PLT 440 10*3/uL (150-450) [facility] MPV 7.0 fL (7.1-10.7) L [facility] [facility] NEUT % 55.0 % (35.0-75.0) [facility] LYMPH % 30.6 % (16.0-52.0) [facility] MONO % 8.2 % (0.0-8.0) H [facility] [place] [facility] EOS % 4.8 % (0.0-5.0) [facility] BASO % 1.4 % (0.0-4.0) [facility] NEUT # 5.3 10*3/uL (1.8-7.7) [facility] LYMPH # 2.9 10*3/uL (1.2-4.8) [facility] MONO # 0.8 10*3/uL (0.0-0.8) [facility] Eosinophils [#/volume] in Blood by Automated count 0.5 10*3/uL (0.0-0 .5) [facility] BASO # 0.1 10*3/uL (0.0-0.2) [facility] ID Date Data Source [id number] 11/07/2019 08:39:57 PM EDT [facility] [place] Name Value Range Interpretation Code Description Data Shannon rce(s) Supporting Document(s) HOLD TUBE PINK [facility] [place] ID Date Data Source [id number] 11/07/2019 09:41:31 AM EDT [facility] [place] SPECIMEN DESCRIPTION URINE, COLLE CTION METHOD NOT SPECIFIEDCULTURE RESULTS >100,000 CFU/ML LACTOBACILLUS SPECIESNOTE: LACTOBACILLI USUALLY REPRESENT NORMAL UROGENITAL JOHN AND AREA VERY RARE CAUSE OF A UTI. LABORATORY METHODS ARE NOT CURRENTLYAVAILABLE FOR PERFORMING ANTIBIOTIC SUSCEPTIBILITY TESTING FOR THISORGANISM. REPORT STATUS FINAL 11/07/2019 Name Value Range Interpretation Code Description Data Shannon rce(s) Supporting Document(s) ID Date Data Source [id number] 11/05/2019 08:25:29 PM EDT [facility] [place] Name Value Range Interpretation Code Description Data Shannon rce(s) Supporting Document(s) URINE WBC (0-5) [facility] URINE RBC (0-2) [facility] EPITHELIAL CELLS 3+ [HPF] [facility] BACTERIA 1+ [HPF] [facility] MUCUS 1+ [HPF] [facility] WBC CAST [facility] ID Date Data Source [id number] 11/05/2019 08:15:48 PM EDT [facility] Name Value Range Interpretation Code Description Data Shannon rce(s) Supporting Document(s) COLOR [facility] APPEARANCE [facility] SPEC GRAV URINE 1.019 (1.003-1.030) [facility] PH URINE 5.0 (5.0-7.5) [facility] LEUK ESTERASE 1+ (NEG) A [facility] NITRITE URINE (NEG) [facility] PROTEIN URINE 1+ (NEG) A [facility] GLUCOSE URINE (NEG) [facility] KETONE URINE (NEG) [facility] [facility] [place] UROBILINOGEN 0.2 mg/dL (0-1.0) [facility] [place] BILIRUBIN URINE (NEG) [facility] BLOOD/HGB URINE 3+ (NEG) A [facility] ID Date Data Source [id number] 11/05/2019 08:48:23 PM EDT [facility] Name Value Range Interpretation Code Description Data Shannon rce(s) Supporting Document(s) TOTAL PROTEIN 5.7 g/dL (6.4-8.2) L [facility] [facility] ALBUMIN 2.3 g/dL (3.5-4.6) L [facility] GLOBULIN 3.4 g/dL (2.7-4.3) [facility] ALB/GLOB RATIO 0.7 RATIO [facility] BILIRUBIN,TOTAL 0.2 mg/dL (0.0-1.0) [facility] PLEASE NOTE:Total bilirubin results may be falselyelevated in patients taking Eltrombopag. BILIRUBIN,CONJUGATED <0.1 mg/dL (0.0-0.3) [facility] BILIRUBIN,UNCONJ. (0.0-0.7) [facility] ALKALINE PHOSPHATASE 113 U/L (45-117) [facility] AST (SGOT) 46 U/L (11-39) H [facility] [facility] ALT (SGPT) 73 U/L (12-78) [facility] ID Date Data Source [id number] 11/05/2019 08:48:23 PM EDT [facility] Name Value Range Interpretation Code Description Data Shannon rce(s) Supporting Document(s) LDH 195 U/L (84-246) [facility] ID Date Data Source [id number] 11/05/2019 08:48:23 PM EDT [facility] Name Value Range Interpretation Code Description Data Shannon rce(s) Supporting Document(s) URIC ACID 6.2 mg/dL (2.6-6.0) H [facility] ID Date Data Source [id number] 11/05/2019 08:48:23 PM EDT [facility] Name Value Range Interpretation Code Description Data Shannon rce(s) Supporting Document(s) SODIUM 142 mmol/L (136-145) [facility] POTASSIUM 4.6 mmol/L (3.6-5.2) [facility] CHLORIDE 113 mmol/L (100-108) H [facility] [place] [facility] CO2 23 mmol/L (22-31) [facility] ANION GAP 6 mmol/L (7-16) L [facility] UREA NITROGEN 14 mg/dL (7-24) [facility] CREATININE 1.12 mg/dL (0.60-1.00) H [facility] [facility] BUN/CREAT RATIO 12.5 RATIO (10.0-20.0) [facility] GLUCOSE 117 mg/dL (70-99) H [facility] CALCIUM 8.5 mg/dL (8.4-10.2) [facility] GFR >60 ml/min/1.73m2 (>59) [facility] [facility] GFR ( AMER) >60 ml/min/1.73m2 (>59) [facility] GFR INTERPRETATION [facility] --NORMAL KIDNEY FUNCTION OR MILD DISEASE - GFR >OR= 60CHRONIC KIDNEY DISEASE - GFR 15 - 59RENAL FAILURE - GFR <15 Est. GFR calculation based on the MDRDstudy equation, which assumes a steadystate for creatinine. Est. GFR should notbe used for medication dosing. ID Date Data Source [id number] 11/05/2019 08:15:13 PM EDT [facility] [place] [facility] Name Value Range Interpretation Code Description Data Shannon rce(s) Supporting Document(s) WBC 9.5 10*3/uL (4.1-11.0) [facility] [place] [facility] [place] RBC 3.79 10*6/uL (4.00-5.40) L [facility] [place] [facility] HGB 11.5 g/dL (12.0-16.0) L [facility] [place] [facility] HCT 33.8 % (36.0-47.0) L [facility] [place] [facility] MCV 89.3 fL (80.0-95.0) [facility] [place] [facility] MCH 30.4 pg (27.0-32.0) [facility] [place] [facility] MCHC 34.0 g/dL (32.0-36.0) [facility] [place] [facility] RDW 13.4 % (10.5-14.5) [facility] [place] [facility] PLT 355 10*3/uL (150-450) [facility] [place] [facility] MPV 6.9 fL (7.1-10.7) L [facility] [place] [facility] NEUT % 62.9 % (35.0-75.0) [facility] [place] [facility] LYMPH % 25.5 % (16.0-52.0) [facility] [facility] MONO % 6.3 % (0.0-8.0) [facility] [facility] EOS % 4.5 % (0.0-5.0) [facility] BASO % 0.8 % (0.0-4.0) [facility] [facility] NEUT # 5.9 10*3/uL (1.8-7.7) [facility] [facility] LYMPH # 2.4 10*3/uL (1.2-4.8) [facility] [facility] MONO # 0.6 10*3/uL (0.0-0.8) [facility] [facility] Eosinophils [#/volume] in Blood by Automated count 0.4 10*3/uL (0.0-0 .5) [facility] [place] [facility] BASO # 0.1 10*3/uL (0.0-0.2) [facility] [place] [facility] ID Date Data Source [id number] 10/24/2019 10:00:00 PM EDT [facility] ([facility]) Name Value Range Interpretation Code Description Data Shannon rce(s) Supporting Document(s) Comprehensive Metabo Laboratory test result [facility] ([facility]) COMPREHENSIVE METABOLIC PANEL Sodium 139 meq/L 134-153 [facility] ([facility]) Potassium 4.4 meq/L 3.6-5.0 [facility] ([facility]) Glucose 189 mg/dL 65-110 Above high normal [facility] ([facility]) Chloride 106 meq/L 98-107 [facility] ([facility]) Co2 20 meq/L 22-30 Below low normal [facility] ([facility]) BUN 13 mg/dL 7-21 [facility] ([facility]) Creatinine 0.6 mg/dL 0.7-1.5 Below low normal [facility] ( [facility]) Total Protein 6.0 g/dL 6.3-8.2 Below low normal [facility] T ([facility]) Albumin 3.4 g/dL 3.9-5.0 Below low normal [facility] ( [facility]) BUN/Creat 22 8-27 [facility] ([facility]) Globulin 2.6 GM/DL 2.4-3.2 [facility] ([facility]) Calcium 9.6 mg/dL 8.4-10.2 [facility] ([facility]) A/G Ratio 1.3 0.8-2.0 [facility] ([facility]) Alkaline Phos 135 U/L 38-126 Above high normal [facility] NT ([facility]) Total Bili Laboratory test result 0.2-1.3 ME [facility] ([facility]) SGPT/Alt 11 U/L 7-56 [facility] ([facility]) Sgot/Ast 14 U/L 5-40 [facility] ([facility]) Anion Gap 13.0 mmol/L 8.0-16.0 [facility] ([facility]) Age 19 yrs [facility] ([facility]) Afr Amer GFR Laboratory test result [facility] ([facility]) Male GFR Interprentation 20-49 yrs >60 [...] Normal Non-Aa GFR Laboratory test result [facility] ([facility]) ID Date Data Source [id number] 10/24/2019 10:00:00 PM EDT [facility] ([facility]) Name Value Range Interpretation Code Description Data Shannon rce(s) Supporting Document(s) Bilirubin.direct [Mass/volume] in Serum or Plasma Laboratory test result 0.1-0.4 [facility] Lactate dehydrogenase [Enzymatic activit y/volume] in Serum or Plasma by Lactate to pyruvate reaction 147 U/L 135-214 [facility] ([facility]) Urate [Mass/volume] in Serum or Plasma 4.9 mg/dL 2.5-8.5 [facility] ([facility]) ID Date Data Source [id number] 10/24/2019 10:00:00 PM EDT [facility] ([facility]) Name Value Range Interpretation Code Description Data Shannon rce(s) Supporting Document(s) Protime 12.7 s 11.0-15.5 [facility] ([facility]) Inr 0.94 0.93-1.23 [facility] ([facility]) PTT 27.8 s 24.8-36.7 [facility] ([facility]) \\BLDo\\INR INTERPRETATION\\BLDx\\ Therapeutic range for Coumadin and related oral anticoagulants. -International Normalized Ratio (INR): 2 .0 - 3.0 for Venous Thrombosis, Pulmonary Embolus, Tissue heart valves, Acute MS Atrial Fibrillation, Valvular heart disease and recurrent [...] and other interferences. ID Date Data Source [id number] 10/24/2019 10:00:00 PM EDT [facility] ([facility]) Name Value Range Interpretation Code Description Data Shannon rce(s) Supporting Document(s) WBC 13.3 10^3/uL 4.2-11.0 Above high normal [facility] T ([facility]) CBC W/Automated Diff Laboratory test result [facility] ([facility]) COMPLETE BLOOD COUNT Hemoglobin 12.7 g/dL 12.0-16.0 [facility] ([facility]) RBC 4.38 10^6/uL 4.20-5.40 [facility] ([facility]) MCH 29.0 pg 27.0-34.0 [facility] ([facility]) MCV 85.6 fL 81.0-101 [facility] ([facility]) Hematocrit 37.5 % 37.0-47.0 [facility] ([facility]) MCHC 33.9 g/dL 31.0-36.0 [facility] ([facility]) RDW 12.7 % 11.5-14.5 [facility] ([facility]) MPV 9.7 fL 7.4-10.4 [facility] ([facility]) Platelets 297 10^3/uL 150-450 [facility] ([facility]) Neut 71.5 % 37.0-80.0 [facility] ([facility]) Lymph 21.5 % 25.0-40.0 Below low normal [facility] ( [facility]) Pettis 5.9 % 3.0-8.0 [facility] ([facility]) Eos 0.6 % 0.0-7.0 [facility] ([facility]) Baso 0.2 % 0.0-2.5 [facility] ([facility]) %Ig 0.3 % 0.0-0.0 Above high normal [facility] ([facility]) %NRBC 0.0 % 0.0-0.0 [facility] ([facility]) #Lymph 2.85 10^3/uL 0.60-3.40 [facility] ([facility]) #Neut 9.51 10^3/uL 2.00-6.90 Above high normal [facility] T ([facility]) #Eos 0.08 10^3/uL 0.00-0.70 [facility] ([facility]) #Pettis 0.78 10^3/uL 0.00-0.90 [facility] ([facility]) #Baso 0.02 10^3/uL 0.00-0.20 [facility] ([facility]) #NRBC 0.00 10^3/uL 0.00-0.00 [facility] ([facility]) #Ig 0.04 10^3/uL 0.00-0.10 [facility] ([facility]) Manual Diff Laboratory test result M [facility] ([facility]) RBC Morph Laboratory test result [facility] ([facility]) ID Date Data Source [id number] 10/24/2019 10:37:00 PM EDT [facility] Name Value Range Interpretation Code Description Data Shannon rce(s) Supporting Document(s) Urate [Mass/volume] in Serum or Plasma 4.9 MG/DL 2.5 - 8.5 [facility] ID Date Data Source [id number] 10/24/2019 10:37:00 PM EDT [facility] Name Value Range Interpretation Code Description Data Shannon rce(s) Supporting Document(s) Bilirubin.direct [Mass/volume] in Serum or Plasma <0.2 MG/DL 0.1 - 0. 4 [facility] ID Date Data Source [id number] 10/24/2019 10:37:00 PM EDT [facility] Name Value Range Interpretation Code Description Data Shannon rce(s) Supporting Document(s) Lactate dehydrogenase [Enzymatic activity/volume] in Serum o r Plasma 147 U/L 135 - 214 [facility] ID Date Data Source [id number] 10/24/2019 10:37:00 PM EDT [facility] Name Value Range Interpretation Code Description Data Shannon rce(s) Supporting Document(s) COMPREHENSIVE METABOLIC PANEL [facility] COMPREHENSIVE METABOLIC PANEL Sodium [Moles/volume] in Serum or Plasma 139 mEq/L 134 - 153 [facility] Potassium [Moles/volume] in Serum or Plasma 4.4 mEq/L 3.6 - 5.0 [facility] Chloride [Moles/volume] in Serum or Plasma 106 mEq/L 98 - 107 [facility] Carbon dioxide, total [Moles/volume] in Serum or Plasma 20 MEQ/L 22 - 30 L [facility] Glucose [Mass/volume] in Serum or Plasma 189 MG/DL 65 - 110 H [facility] BUN 13 MG/DL 7 - [facility] Creatinine [Mass/volume] in Serum or Plasma 0.6 MG/DL 0.7 - 1.5 L [facility] BUN/CREAT 22 8 - 27 [facility] al Protein [Mass/volume] in Serum or Plasma 6.0 G/DL 6.3 - 8.2 L [facility] [facility] Albumin [Mass/volume] in Serum or Plasma 3.4 G/DL 3.9 - 5.0 L [facility] Globulin [Mass/volume] in Serum by calculation 2.6 GM/DL 2.4 - 3.2 [facility] A/G RATIO 1.3 0.8 - 2.0 [facility] Calcium [Mass/volume] in Serum or Plasma 9.6 MG/DL 8.4 - 10.2 [facility] Bilirubin.total [Mass/volume] in Serum or Plasma <0.7 MG/DL 0.2 - 1.3 [facility] Alkaline phosphatase [Enzymatic activity/volume] in Serum or Plasma 135 U/L 38 - 126 H [facility] Aspartate aminotransferase [Enzymatic activity/volume] in Serum or Plasma 14 U/L 5 - 40 [facility] Alanine aminotransferase [Enzymatic activity/volume] in Seru m or Plasma 11 U/L 7 - 56 [facility] Anion gap 3 in Serum or Plasma 13.0 mmol/L 8.0 - 16.0 [facility] AGE 19 yrs [facility] Hospit al NON-AA GFR >60 mL/min [facility] Hosp ital AFR AMER GFR >60 mL/min [facility] Ho spital Male GFR In terprentation [...] >32 mL/min Normal ID Date Data Source [id number] 10/24/2019 10:31:00 PM EDT [facility] Name Value Range Interpretation Code Description Data Shannon rce(s) Supporting Document(s) Prothrombin time (PT) 12.7 SECONDS 11.0 - 15.5 [facility] INR in Platelet poor plasma by Coagulation assay 0.94 0.93 - 1. 23 [facility] aPTT in Blood by Coagulation assay 27.8 SECONDS 24.8 - 36.7 [facility] \\BLDo\\INR INTERPRETATION\\BLDx\\ Therapeutic range for Coumadin and related oral anticoagulants. - International Normalized Ratio (INR): 2.0 - 3.0 for Venous Thrombosis, Pulmonary Embolus, Tissue heart valves, Acute MS Atrial Fibrillation, Valvular heart disease and recurrent [...] and other interferences. ID Date Data Source [id number] 10/24/2019 10:22:00 PM EDT [facility] Name Value Range Interpretation Code Description Data Shannon rce(s) Supporting Document(s) CBC W/AUTOMATED DIFF [facility] COMPLETE BLOOD COUNT Leukocytes [#/volume] in Blood by Automated count 13.3 10^3/uL 4.2 - 11.0 H [facility] Erythrocytes [#/volume] in Blood by Automated count 4.38 10^6/uL 4. 20 - 5.40 [facility] Hemoglobin [Mass/volume] in Blood 12.7 g/dL 12.0 - 16.0 [facility] Hematocrit [Volume Fraction] of Blood by Automated count 37.5 % 3 7.0 - 47.0 [facility] Erythrocyte mean corpuscular volume [Entitic volume] by Auto mated count 85.6 fL 81.0 - 101 [facility] Erythrocyte mean corpuscular hemoglobin [Entitic mass] by Automated count 29.0 pg 27.0 - 34.0 [facility] Erythrocyte mean corpuscular hemoglobin concentration [Mass/volume] by Automated count 33.9 g/dL 31.0 - 36.0 [facility] Erythrocyte distribution width [Ratio] by Automated count 12.7 % 11.5 - 14.5 [facility] Platelets [#/volume] in Blood by Automated count 297 10^3/uL 150 - 45 0 [facility] Platelet mean volume [Entitic volume] in Blood by Automated count 9.7 fL 7.4 - 10.4 [facility] Neutrophils/100 leukocytes in Blood by Automated count 71.5 % 37. 0 - 80.0 [facility] Lymphocytes/100 leukocytes in Blood by Manual count 21.5 % 25.0 - 40.0 L [facility] Monocytes/100 leukocytes in Blood by Automated count 5.9 % 3.0 - 8.0 [facility] Eosinophils/100 leukocytes in Blood by Automated count 0.6 % 0.0 - 7.0 [facility] Basophils/100 leukocytes in Blood by Automated count 0.2 % 0.0 - 2.5 [facility] %IG 0.3 % 0.0 - 0.0 [facility] %NRBC 0.0 % 0.0 - 0.0 [facility] al Neutrophils [#/volume] in Blood by Automated count 9.51 10^3/uL 2.00 - 6.90 H [facility] Lymphocytes [#/volume] in Blood by Automated count 2.85 10^3/uL 0.60 - 3.40 [facility] Monocytes [#/volume] in Blood by Automated count 0.78 10^3/uL 0.00 - 0.90 [facility] Eosinophils [#/volume] in Blood by Automated count 0.08 10^3/uL 0.00 - 0.70 [facility] Basophils [#/volume] in Blood by Automated count 0.02 10^3/uL 0.00 - 0.20 [facility] #IG 0.04 10^3/uL 0.00 - 0.10 [facility] ospital #NRBC 0.00 10^3/uL 0.00 - 0.00 [facility] ospital MANUAL DIFF NOT INDICATED [facility] RBC MORPH NOT INDICATED [facility] spital ID Date Data Source [id number] 10/24/2019 08:20:00 PM EDT [facility] ([facility]) Name Value Range Interpretation Code Description Data Shannon rce(s) Supporting Document(s) Culture Urine Laboratory test result [facility] ([facility]) {SOURCE: Clean Catch~NURSE COLLECTED? N ID Date Data Source [id number] 10/24/2019 08:20:00 PM EDT [facility] ([facility]) Name Value Range Interpretation Code Description Data Shannon rce(s) Supporting Document(s) Creatinine [Mass/volume] in Urine 122.1 mg/dL 0.0-30.0 Above high n ormal [facility] ([facility]) {SOURCE: Clean Catch~NURSE COLLECTED? N Protein [Mass/volume] in Urine 69 mg/dL 0-20 Above high aura l [facility] ([facility]) {SOURCE: Clean Catch~NURSE COLLECTED? N ID Date Data Source [id number] 10/24/2019 08:20:00 PM EDT [facility] ([facility]) Name Value Range Interpretation Code Description Data Shannon rce(s) Supporting Document(s) Source Laboratory test result [facility] ([facility]) {SOURCE: Clean Catch~NURSE COLLECTED? N Urinalysis Laboratory test result [facility] ([facility]) {SOURCE: Clean Catch~NURSE COLLECTED? N Clarity Laboratory test result [facility] ([facility]) {SOURCE: Clean Catch~NURSE COLLECTED? N Color Laboratory test result [facility] ([facility]) {SOURCE: Clean Catch~NURSE COLLECTED? N Spec [employer] 1.020 1.001-1.030 [facility] ([facility]) {SOURCE: Clean Catch~NURSE COLLECTED? N pH 6 5-9 [facility] ([facility]) {SOURCE: Clean Catch~NURSE COLLECTED? N Glucose 1000 Abnormal (applies to non-numeric res ults) [facility] ([facility]) {SOURCE: Clean Catch~NURSE COLLECTED? N Bilirubin Laboratory test result [facility] ([facility]) {SOURCE: Clean Catch~NURSE COLLECTED? N Ketone Laboratory test result [facility] ([facility]) {SOURCE: Clean Catch~NURSE COLLECTED? N Protein 30 [facility] ([facility]) {SOURCE: Clean Catch~NURSE COLLECTED? N Blood 25 Abnormal (applies to non-numeric res ults) [facility] ([facility]) {SOURCE: Clean Catch~NURSE COLLECTED? N Nitrite Laboratory test result [facility] ([facility]) {SOURCE: Clean Catch~NURSE COLLECTED? N Leuk Est Laboratory test result [facility] ([facility]) {SOURCE: Clean Catch~NURSE COLLECTED? N Microscopic Laboratory test result M [facility] ([facility]) {SOURCE: Clean Catch~NURSE COLLECTED? N Urobilinogen Laboratory test result [facility] ([facility]) {SOURCE: Clean Catch~NURSE COLLECTED? N WBC Laboratory test result [facility] ([facility]) {SOURCE: Clean Catch~NURSE COLLECTED? N Epithelial Laboratory test result Abnormal (applies to non -numeric results) [facility] ([facility]) {SOURCE: Clean Catch~NURSE COLLECTED? N RBC Laboratory test result [facility] ([facility]) {SOURCE: Clean Catch~NURSE COLLECTED? N Casts Laboratory test result [facility] ([facility]) {SOURCE: Clean Catch~NURSE COLLECTED? N Bacteria Laboratory test result [facility] ([facility]) {SOURCE: Clean Catch~NURSE COLLECTED? N Hyaline Cast Laboratory test result Abnormal (applies to non-numeric results) [facility] ([facility]) {SOURCE: Clean Catch~NURSE COLLECTED? N Coarse Gran Laboratory test result Abnormal (applies to non-numeric results) [facility] ([facility]) {SOURCE: Clean Catch~NURSE COLLECTED? N ID Date Data Source [id number] 10/29/2019 02:20:00 PM EDT [facility] Name Value Range Interpretation Code Description Data Shannon rce(s) Supporting Document(s) CULTURE URINE [facility] spital _CULTURE URINE_$$[id number]$$[id number]$$[id number]$$312837$$453043$$992173$$081684$$303345$$719786$$ 033336$$095060$$807841$$978882$$893350$$849249$$286776$$081392$$031725$$235498$$ 909381$$198912$$516033$$914665$$863754$$982404$$255845$$300072 -- Continued on next page --Patient: GRIFFIN NAVAS N Order: Page 2Culture: CULTURE URINE Status: Final ==== -- Continued on next page --Patient: GRIFFIN NAVAS N Order: [id number] Page 2Culture: CULTURE URINE Status: Prelim =====$$[id number]$$[id number] DATE/TIME: 10/29/2019 14:05Culture: CULTURE URINE Status: FinalUrine Culture,Comprehensive: [id number] urogenital flora10,000-25,000 colony forming units per mL Previous result entered on 10/27/2019 01:31 ET No growth after 18-24 hours.P1 Test performed by: [facility] #: [id number] [address] [id number] [facility] [id number] Director : Lukas Valentin MD NPI #:Electrical Mechanical Technician : 10/27/19.0820.XMT.SENT REF 10/29/19.1420.XMT.SENT REF ID Date Data Source [id number] 10/24/2019 10:30:00 PM EDT [facility] Name Value Range Interpretation Code Description Data Shannon rce(s) Supporting Document(s) CREAT UR 122.1 MG/DL 0.0 - 30.0 H [facility] pital ID Date Data Source [id number] 10/24/2019 10:30:00 PM EDT [facility] Name Value Range Interpretation Code Description Data Shannon rce(s) Supporting Document(s) Protein [Mass/volume] in Urine by Test strip 69 mg/dL 0 - 20 H [facility] T ID Date Data Source [id number] 10/24/2019 10:06:00 PM EDT [facility] Name Value Range Interpretation Code Description Data Shannon rce(s) Supporting Document(s) [facility] URINALYSIS SOURCE R [facility] Hospit al COLOR yellow NORMAL: Yellow [facility] H ospital CLARITY hazy NORMAL: Clear [facility] Ho spital Specific gravity of Urine by Test strip 1.020 1.001 - 1.030 [facility] pH 6 5 - 9 [facility] Glucose [Mass/volume] in Urine by Test strip 1000 NORMAL: Negat [facility] Bilirubin.total [Presence] in Urine by Test strip NEG NORMAL: Negative [facility] Ketones [Presence] in Urine by Test strip NEG NORMAL: Negative [facility] Protein [Mass/volume] in Urine by Test strip 30 NORMAL: Negat dulce [facility] Nitrite [Presence] in Urine by Test strip NEG NORMAL: Negative [facility] BLOOD 25 NORMAL: Negative A [facility] Leukocyte esterase [Presence] in Urine by Test strip NEG AURA L: Negative [facility] Urobilinogen [Mass/volume] in Urine by Test strip NOR less suzan n 1.0 mg/dL [facility] MICROSCOPIC See Below [facility] Hosp ital WBC 1 - 3 NORMAL: NONE SEEN [facility] Erythrocytes [#/volume] in Urine by Test strip 0 - 1 NORMAL: NON E SEEN [facility] EPITHELIAL MANY NORMAL: NONE SEEN A [facility] Bacteria [Presence] in Urine sediment by Light microscopy 1+ SMALL NORMAL: NONE SEEN [facility] Casts [#/area] in Urine sediment by Microscopy low power field See Be low [facility] Hyaline casts [#/area] in Urine sediment by Microscopy low p ower field 0-1 NORMAL: None Seen A [facility] Coarse Granular Casts [#/area] in Urine sediment by Mi croscopy low power field 0-1 NORMAL: None Seen A [facility] ID Date Data Source [id number] 10/21/2019 01:45:00 PM EDT [facility] [address] [place] [address] PHONE: [phone] FAX: [phone] Name .................. : PAVELNEIL YOSEF [place] Acct Number.................. : [id number] ROOM. ................. : TR-02 MR Number ................... : [id number] Stay type ............. : E/R Discharge Date......... ... : 10/18/19 Admit Date ......... : 10/18/19 Admit Phys .................... : MARCELA Laboy Date of ....... : 2000 Family Phys ................... : NON STAFF Phone .................. : [phone] Age ................................ : 19 Film# .................. .:[id number] Sex ................................. : F Unsigned transcriptions are preliminary reports and do not represent a medical or legal document [place] [id number] COMPLETE:10/18/19 17:23 WEST [id number] Reason(s): trauma. pt tenderness med mal and 4th MT LEFT ANKLE X-RAY: INDICATION: Trauma. FINDINGS/IMPRESSION: There is no evidence of fracture or dislocation. Diffuse soft tissue edema is noted. The ankle mortise is intact. No joint effusion. Electronically Reviewed and Signed By Juanjose Camilo M.D. , 10/21/19 13:45, [facility] Transcribe Initials: LIZZETTE , Transcribe Date: 10/18/19 18:05, Dictation Date: Copy for: UNRULY WILLIS via fax Copy for: EMERGENCY DEPT via modem Copy for: 710 MED REC DISCHARGED Page 1 of 1 Name Value Range Interpretation Code Description Data Shannon rce(s) Supporting Document(s) ID Date Data Source [id number] 10/18/2019 04:50:00 PM EDT [facility] 1 OrderSheet [facility] Emergency Department [address] [place] [address] Phone #: [phone]- [phone] 10/18/2019 16:41 Patient: YOSEF MOYA Sex: F [...] rce(s) Supporting Document(s) ID Date Data Source [id number] 10/18/2019 04:50:00 PM EDT [facility] 1 Medication Reconciliation Report [facility] Emergency Department [address] [place] [address] Phone #: ext- [phone] 10/18/2019 16:41 Patient: [...] e(s) Supporting Document(s) ID Date Data Source [id number] 10/18/2019 04:50:00 PM EDT [facility] 1 Medication Administration Record [facility] Emergency Department [address] [place] [address] Phone #: ext- [phone] 10/18/2019 16:41 Patient: YOSEF MOYA Sex: F : 2000 Age: 19yWeight: 129.2 kgHeight/Length: 67 inBMI: 44.7ALLERGIES: advil liquid gelDate/Time Medication Administered Medication Ordered Name Value Range Interpretation Code Description Data Shannon [facility](s) Supporting Document(s) ID Date Data Source [id number] 10/18/2019 04:50:00 PM EDT [facility] 1 General Instructions [facility] Emergency Department [address] [place] [address] Phone #: ext- [phone] 10/18/2019 16:41 Patient: [...] ADDITIONAL INFORMATIONAnkle Sprain (Adult) 2 General Instructions [facility] Emergency Department [address] [place] [address] Phone #: ext- [phone] 10/18/2019 16:41 Patient: [...] ice, compression, and elevation): 3 General Instructions [facility] Emergency Department [address] [place] [address] Phone #: ext- [phone] 10/18/2019 16:41 Patient: [...] thin towel or cloth. You may use vfzo-[id number] pain medicine (NSAIDS or nonsteroidal anti-inflammatory drugs) [...] even or cracked surfaces 4 General Instructions [facility] Emergency Department [address] [place] [address] Phone #: ext- [phone] 10/18/2019 16:41 Patient: [...] or is irritated You re-injure your ankle [id number] [employer]. [address] [place] [address]. All rights reserved. This information is not intended as asubstitute for professional medical care. Always follow your healthcare professional's instructions. You have been given the following additional information: Ankle Sprain (Adult) No weight bearing left leg until better. 5 General Instructions [facility] Emergency Department [address] [place] [address] Phone #: ext- [phone] 10/18/2019 16:41 Patient: YOSEF MOYA Sex: F : 2000 Age: 19y(Electronically signed by CARLA Gomez 10/18/2019 17:50) Name Value Range Interpretation Code Description Data Shannon rce(s) Supporting Document(s) ID Date Data Source [id number] 10/18/2019 04:50:00 PM EDT [facility] 1 Clinical Report - Nurses [facility] Emergency Department [address] [place] [address] Phone #: [phone]- [phone] 10/18/2019 16:41 Patient: YOSEF MOYA Sex: F [...] better. 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 [...] R.N.ADDITIONAL SURGERIES:Adenoidectomy. 2 Clinical Report - Nurses [facility] Emergency Department [address] [place] [address] Phone #: ext- [phone] 10/18/2019 16:41 [id number] Sex[facility] F : 2000 Age: 19y Appendectomy. Cholecystectomy. Ovarian cyst removal. Tonsillectomy. --16:45 10/18/19 Suri Ibarra R.N. History PAST MEDICAL HX: Tetanus status: up-to-date. Immunizations: up-to-date. Last normal menstrual period- LMP 04/06/2019, RALPH 12/06/2019. 1. Para 0. Abortions 0. Confirmed . In 3rd trimester. confirmed with sonogram. Has had care by [facility]. SOCIAL HX: Never smoker. No alcohol use [...] bed on. 3 Clinical Report - Nurses [facility] Emergency Department [address] [place] [address] Phone #: ext- [phone] 10/18/2019 16:41 Patient: YOSEF MOYA Sex: F : 2000 Age: 19y Patient ready for evaluation. --16:51 10/18/19 Zoe Shipman RN 17:10 10/18/19. Patient transported to radiology by wheelchair with hazardous waste technician. --17:15 10/18/19 Zoe Shipman RN Patient returned from radiology by wheelchair with hazardous waste technician. --17:17 10/18/19 Zoe Shipman RN 17:40 [...] F. Pain level now: 09/26. --17:40 10/18/19 [facility] Tech, MINO Sue Tech1 Departure time: 17:50 10/18/2019. --17:56 10/18/19 Zoe Shipman RN Condition at departure: stable. No learning barriers present. Discharge instructions provided and reviewed with the patient. Reviewed crutch walking, splint care, rest, ice, compression and elevation instructions. Patient verbalized understanding. Written instructions provided in Cuban. The patient was discharged by the physician customer relations assistant. She was discharged home and accompanied by spouse. She left ambulatory on crutches and via private vehicle. Spouse driving. --17:56 10/18/19 Zoe Shipman RN.Locked/Released at 10/18/2019 17:57 by Zoe Shipman RN Name Value Range Interpretation Code Description Data Shannon rce(s) Supporting Document(s) ID Date Data Source [id number] 10/18/2019 04:50:00 PM EDT [facility] 1 Clinical Report - Physicians/Mid Levels [facility] Emergency Department [address] [place] [address] Phone #: ext- [phone] 10/18/2019 16:41 Patient: YOSEF MOYA Sex: F [...] atraumatic. 2 Clinical Report - Physicians/Mid Levels [facility] Emergency Department [address] [place] [address] Phone #: ext- [phone] 10/18/2019 16:41 Patient: YOSFE MOYA [facility]#: [id number] Sex: F : 2000 Age: 19y Eyes: [...] ankle exam otherwise negative. Extremities otherwise negative. [employer] [place] ANKLE [employer]: The need for X- rays [...] tylenol for pain). 3 Clinical Report - Physicians/[facility] Emergency Department [address] [place] [address] Phone #: ext- [phone] 10/18/2019 16:41 Patient: [...] rce(s) Supporting Document(s) ID Date Data Source [id number] 08/26/2019 10:48:00 [place] [address] ---------NAME--------- NUMBER SEX AGE ADMIT DISC. XRAY# F/C TYPE GRIFFIN [place] [id number] F 19 08/26/19 [id number] SB2 O/P DATE OF : 2000 M/R# [id number] PH#: [phone] LOCATION: TRANSCRIBED: 08/26/19 22:48 IF US OB LIMITED 1OR MORE [id number] COMPLETED:08/26/19 21:41 ADB 20754 {REASON FOR OBS: abddominal cramping PHYSICIAN: LIT [...] rce(s) Supporting Document(s) ID Date Data Source [id number] 08/30/2019 01:20:00 PM EDT [facility] Name Value Range Interpretation Code Description Data Shannon rce(s) Supporting Document(s) SOURCE: Genital [facility] Hospit al Chlamydia trachomatis rRNA [Presence] in Unspecified specimen by Probe and target amplification method Negative Negative [facility] Neisseria gonorrhoeae rRNA [Presence] in Unspecified specimen by Probe and target amplification method Negative Negative [facility] Trichomonas vaginalis DNA [Presence] in Unspecified specimen by Probe and target amplification method Negative Negative [facility] ID Date Data Source [id number] 08/29/2019 07:38:00 AM EDT [facility] Name Value Range Interpretation Code Description Data Shannon rce(s) Supporting Document(s) SOURCE: Genital [facility] Hospit [facility] Ibis sp rRNA [Presence] in Vaginal fluid by DNA probe Negative N egative [facility] Gardnerella vaginalis rRNA [Presence] in Genital specimen by DNA probe Negative Negative [facility] Trichomonas vaginalis rRNA [Presence] in Genital specimen by DNA probe Negative Negative [facility] ID Date Data Source [id number] 08/28/2019 06:56:00 AM EDT [facility] 25,000 CFU/MLLactobacilli no senst done Name Value Range Interpretation Code Description Data Shannon rce(s) Supporting Document(s) ID Date Data Source [id number] 08/28/2019 07:57:00 PM EDT [facility] Name Value Range Interpretation Code Description Data Shannon rce(s) Supporting Document(s) CULTURE URINE [facility] spital _CULTURE URINE_ Specimen site Narrative CLEAN CATCH [facility] Result: [place] [address] CLIA# [id number] SEE SCANNED REPORT ID Date Data Source [id number] 08/26/2019 09:06:00 PM EDT [facility] Name Value Range Interpretation Code Description Data Shannon rce(s) Supporting Document(s) URINALYSIS [facility] regulo URINALYSIS SOURCE R [facility] al COLOR yellow NORMAL: Yellow [facility] ospital CLARITY clear NORMAL: Clear [facility] Ho spital Specific gravity of Urine by Test strip 1.030 1.001 - 1.030 [facility] pH 5 5 - 9 [facility] Glucose [Mass/volume] in Urine by Test strip 250 NORMAL: Negat dulce A [facility] Bilirubin.total [Presence] in Urine by Test strip NEG NORMAL: Negative [facility] Ketones [Presence] in Urine by Test strip 15 NORMAL: Negative [facility] Protein [Mass/volume] in Urine by Test strip 30 NORMAL: Negat dulce [facility] Nitrite [Presence] in Urine by Test strip NEG NORMAL: Negative [facility] BLOOD 25 NORMAL: Negative [facility] Leukocyte esterase [Presence] in Urine by Test strip 25 AURA L: Negative [facility] Urobilinogen [Mass/volume] in Urine by Test strip NOR less suzan n 1.0 mg/dL [facility] MICROSCOPIC See Below [facility] ital WBC 3 - 5 NORMAL: NONE SEEN [facility] Erythrocytes [#/volume] in Urine by Test strip 0 - 1 NORMAL: NON E SEEN [facility] EPITHELIAL MODERATE NORMAL: NONE SEEN A [facility] Bacteria [Presence] in Urine sediment by Light microscopy 2+ MOD NORMAL: NONE SEEN A [facility] Crystals [type] in Urine sediment by Light microscopy See Below [facility] CALCIUM OX 2+ NORMAL: NONE SEEN A [facility] [facility] ID Date Data Source [id number] 07/29/2019 12:00:00 AM EST [facility] Imaging Kody Matta DO Patient Name: YOSEF MOYA[facility] 2000[facility] [place] [id number] Date of Exam: 07/29/2019#: Fax: [phone] EXAM: [...] not recorded due totechnologist error.Accredited by the [employer] [place] [employer] in Obstetrical Ultrasound.GET Daniel/Geraldine you for referring YOSEF MOYA to our office. Electronically Signed - TREVOR KUO MD 07/30/19 11:21 Name Value Range Interpretation Code Description Data Shannon rce(s) Supporting Document(s) Procedure Social History Code Duration Value Status Description Data Source(s ) Smoking 06/18/2020 12:00:00 AM EST Patient has never smoked co mpleted Patient has never smoked [facility] ([facility] ) Smoking 11/08/2019 04:47:00 AM EDT Denies Ever Smoked complete d Denies Ever Smoked [facility] Smoking 11/05/2019 07:56:00 PM EDT Denies Ever Smoked complete d Denies Ever Smoked [facility] Vital Signs ID Date Data Source UNK Name Value Range Interpretation Code Description Data Source(s) Oxygen saturation in Arterial blood by Pulse oximetry 97 % 97 % [facility] ([facility]) Body mass index (BMI) [Ratio] 49.7 kg/m2 49.7 k g/m2 [facility] ([facility]) Body weight 308.00 [lb_av] 308.00 [lb_av] [facility] T ([facility]) Body height 66 [in_i] 66 [in_i] [facility] ([facility]) 5'6" Body temperature 97.0 [degF] 97.0 [degF] [facility] ([facility]) Heart rate 105 /min 105 /min [facility] ([facility]) Diastolic blood pressure 70 mm[Hg] 70 mm[Hg] [facility] ([facility]) Systolic blood pressure 132 mm[Hg] 132 mm[Hg] M [facility] ([facility]) Body mass index (BMI) [Ratio] 34.3 kg/m2 [...] Normal (applies to non-numeric results) 18 min [facility] Heart rate 94 min Normal (applies to non-numeric resul ts) 94 min [facility] Diastolic blood pressure 78 mm[Hg] Normal (applies to non-numeric results) 78 mm[Hg] [facility] Systolic blood pressure 130 mm[Hg] Normal (applies t o non-numeric results) 130 mm[Hg] [facility] Deprecated Oxygen saturation in Capillary blood by Oximetry 100 % Normal (applies to non-numeric results) 100 % [facility] Body weight Measured 274 [lb_av] Normal (applies to n on-numeric results) 274 [lb_av] [facility] Body temperature 37.1 sesar Normal (applies to non-numeric results) 37.1 sesar [facility] Respiratory rate 20 min Normal (applies to non-numeric results) 20 min [facility] Deprecated Oxygen saturation in Capillary blood by Oximetry 99 % Normal (applies to non-numeric results) 99 % [facility] Body height 169.18557999525726 cm Normal (applies to non-numeric results) 169.64227029777792 cm [facility] Heart rate 101 min Normal (applies to non-numeric resul ts) 101 min [facility] Body mass index (BMI) [Ratio] 42.9 kg/m2 No rmal (applies to non-numeric results) 42.9 kg/m2 [facility] Diastolic blood pressure 86 mm[Hg] Normal (applies to non-numeric results) 86 mm[Hg] [facility] Systolic blood pressure 148 mm[Hg] Normal (applies t o non-numeric results) 148 mm[Hg] [facility] Body surface area 2.30 m2 2.30 m2 [facility] ([facility]) Body mass index (BMI) [Ratio] 42.6 kg/m2 42.6 k g/m2 [facility] ([facility]) Body height 67 [in_i] 67 [in_i] [facility] ([facility]) 5'7" Body weight 123.379 kg 123.379 kg [facility] ([facility]) Body weight 272.00 [lb_av] 272.00 [lb_av] [facility] T ([facility]) office visit 10/10/19 Body height 67 [in_i] 67 [in_i] [facility] ([facility] ) 5'7" Body weight 265.00 [lb_av] 265.00 [lb_av] [facility] T ([facility] ) Body mass index (BMI) [Ratio] 41.5 kg/m2 41.5 k g/m2 [facility] ([facility] ) ID Date Data Source [id number] 11/18/2019 09:56:13 AM EDT [facility] Name Value Range Interpretation Code Description Data Source(s) WEIGHT RECORDED 300.00 pounds 300.00 pounds [facility] Height 67 Inches 067 Inches [facility] ID Date Data Source [id number] 08/30/2019 01:21:09 PM EDT [facility] Name Value Range Interpretation Code Description Data Source(s) WEIGHT RECORDED 272.00 pounds 272.00 pounds [facility] Height 68 Inches 068 Inches [facility]
[2020-08-01 21:57] VITALS: BP 130/89
== END 2020-08-01 22:04 | disposition home or self-care (01) ==
LOC: M ED 19:26
DX: J06.9 Acute upper respiratory infection, unspecified (principal); J45.909 Unspecified asthma, uncomplicated; Z79.84 Long term (current) use of oral hypoglycemic drugs; Z79.899 Other long term (current) drug therapy; Z91.09 Other allergy status, other than to drugs and biological substances
CPT/HCPCS: 87804; 99283; U0003

== ENCOUNTER → 2020-11-26 | Outpatient (CLI) | payer OTHER ==
[~2020-11-26] MED LIST changes: +FLUO20CA22; +KELN1TAB; +METF-838
[2020-11-26 14:51] LABS: BLOOD UREA NITROGEN 14 MG/DL (7-18); CALCIUM LEVEL 9.7 MG/DL (8.5-10.1); CARBON DIOXIDE LEVEL 26 MEQ/L (21-32); CHLORIDE LEVEL 102 MEQ/L (98-107); CREATININE FOR GFR 0.78 MG/DL (0.55-1.30); FOLLICLE STIMULATING HORMONE 7.5 mIU/mL; GLOMERULAR FILTRATION RATE > 60.0 (>60); GLUCOSE, FASTING 306 MG/DL (70-100); LUTEINIZING HORMONE 6.7 mIU/mL; POTASSIUM SERUM 4.6 MEQ/L (3.5-5.1); SODIUM LEVEL 136 MEQ/L (136-145)
== END ==
LOC: M LAB 12:29
PROVIDERS: ATTEND Internal Medicine Endocrinology, Diabetes & Metabolism
DX: E28.2 Polycystic ovarian syndrome (principal)

== ENCOUNTER → 2021-11-30 | Outpatient (CLI) | payer OTHER | LOC: M LABSMTC 10:49 | DX: Z20.822 Contact with and (suspected) exposure to COVID-19 (principal) ==

== ENCOUNTER 2022-01-17 17:33 | Emergency (ER) | payer OTHER ==
[~2022-01-17] VITALS: Ht 170.2 cm; Wt 129.9 kg
[2022-01-17 17:34] VITALS: BP 133/79
[2022-01-17] MEDS ORDERED: ATOR1TAB19 (18:00)
[2022-01-17] MEDS ORDERED: RAMI1CAP21 (18:00)
[2022-01-17] MEDS ORDERED: NAPR-837 PO (19:05)
[2022-01-17] MEDS ORDERED: ULTR50TA8 PO (19:05)
== END 2022-01-17 19:22 | disposition home or self-care (01) ==
LOC: M ED 17:33
DX: S43.51XA Sprain of right acromioclavicular joint, initial encounter (principal); W19.XXXA Unspecified fall, initial encounter; Y92.009 Unspecified place in unspecified non-institutional (private) residence as the place of occurrence of the external cause; E11.9 Type 2 diabetes mellitus without complications; I10 Essential (primary) hypertension; E28.2 Polycystic ovarian syndrome; Z79.84 Long term (current) use of oral hypoglycemic drugs; Z79.899 Other long term (current) drug therapy

== ENCOUNTER → 2022-05-19 | Outpatient (REF) | payer OTHER ==
[~2022-05-19] MED LIST changes: +ATOR1TAB19; -LABE100T4 PO; +LABE100T6 PO; +NAPR-837 PO; +NAPR-885 PO; +RAMI1CAP21; +TRAM50TA2 PO; +ULTR50TA8 PO
[2022-05-19 16:38] LABS: HEMATOCRIT 44.9 % (36.0-47.0); HEMOGLOBIN 15.2 g/dl (12.0-15.5); MEAN CORPUSCULAR HEMOGLOBIN 29.9 pg (27.0-33.0); MEAN CORPUSCULAR HGB CONC 33.9 g/dl (32.0-36.5); MEAN CORPUSCULAR VOLUME 88.2 fl (80.0-96.0); PLATELET COUNT, AUTOMATED 431 10^3/uL (150-450); RED BLOOD COUNT 5.09 10^6/uL (4.00-5.40); WHITE BLOOD COUNT 10.6 10^3/uL (4.0-10.0)
[2022-05-19 17:31] LABS: ALBUMIN 4.3 G/DL (3.2-5.2); ALKALINE PHOSPHATASE 59 U/L (46-116); ALT/SGPT 45 U/L (7.0-40); AST/SGOT 28 U/L (<34); BILIRUBIN,TOTAL 0.6 MG/DL (0.3-1.2); BLOOD UREA NITROGEN 14 MG/DL (9-23); CALCIUM LEVEL 9.5 MG/DL (8.5-10.1); CARBON DIOXIDE LEVEL 24 MMOL/L (20-31); CHLORIDE LEVEL 104 MMOL/L (98-107); CREATININE FOR GFR 0.89 MG/DL (0.55-1.30); GLOMERULAR FILTRATION RATE > 60.0 (>60); GLUCOSE, FASTING 99 MG/DL (60-100); SODIUM LEVEL 139 MMOL/L (136-145); TOTAL PROTEIN 7.9 G/DL (5.7-8.2)
[2022-05-19 17:34] LABS: THYROXINE (T4) 14.9 UG/DL (4.5-10.9)
[2022-05-19 17:35] LABS: FREE THYROXINE INDEX 4.9 % (1.3-4.8); T UPTAKE 33.1 % (22.5-37.0)
[2022-05-19 17:36] LABS: FOLLICLE STIMULATING HORMONE 7.6 mIU/ML; LUTEINIZING HORMONE 7.7 mIU/ML
[2022-05-19 17:37] LABS: THYROID STIMULATING HORMONE 0.932 uIU/ML (0.55-4.78)
[2022-05-19 17:39] LABS: TESTOSTERONE 38 NG/DL (14-76)
[2022-05-19 20:53] LABS: HEMOGLOBIN A1c 5.5 % (4.0-6.0)
== END ==
LOC: M LAB REF 16:10
PROVIDERS: ATTEND Advanced Practice Midwife
DX: N93.9 Abnormal uterine and vaginal bleeding, unspecified (principal)

== ENCOUNTER 2022-06-21 14:03 | Observation (INO) | payer OTHER ==
[~2022-06-21] VITALS: Ht 170.2 cm; Wt 128.7 kg
[~2022-06-21 14:03] MED LIST changes: -ATOR1TAB19; +ATOR1TAB19 PO; -METF-838; +METF-838 PO; -RAMI1CAP21; +RAMI1CAP21 PO; +metFORMIN XR 500MG TAB *GLUCOPHAGE XR PO SCH
[2022-06-21] MEDS ORDERED: NS 1,000 ML IV ONE ×2 (14:40→15:25)
[2022-06-21 14:57] LABS: HEMATOCRIT 40.9 % (36.0-47.0); HEMOGLOBIN 13.8 g/dl (12.0-15.5); MEAN CORPUSCULAR HEMOGLOBIN 30.3 pg (27.0-33.0); MEAN CORPUSCULAR HGB CONC 33.7 g/dl (32.0-36.5); MEAN CORPUSCULAR VOLUME 89.7 fl (80.0-96.0); PLATELET COUNT, AUTOMATED 523 10^3/uL (150-450); RED BLOOD COUNT 4.56 10^6/uL (4.00-5.40); WHITE BLOOD COUNT 15.5 10^3/uL (4.0-10.0)
[2022-06-21 15:23] LABS: BLOOD UREA NITROGEN 13 MG/DL (9-23); CALCIUM LEVEL 9.2 MG/DL (8.5-10.1); CARBON DIOXIDE LEVEL 24 MMOL/L (20-31); CHLORIDE LEVEL 104 MMOL/L (98-107); CREATININE FOR GFR 0.82 MG/DL (0.55-1.30); GLOMERULAR FILTRATION RATE > 60.0 (>60); GLUCOSE, FASTING 127 MG/DL (60-100); POTASSIUM SERUM 4.3 MMOL/L (3.5-5.1); SODIUM LEVEL 139 MMOL/L (136-145)
[2022-06-21 15:29] LABS: RSV AMPLIFICATION NEGATIVE (NEGATIVE)
[2022-06-21] MEDS ORDERED: ISOVUE-370 76% 100ML VIAL As Ordered ONE (15:36)
[2022-06-21] MEDS: MORPHINE 2 MG/ML 1ML VIAL IV PRN ×2 (15:48→16:35)
[2022-06-21 16:00] LABS: EOSINOPHILS 1 % (0-3); LYMPHOCYTES 36 % (16-44); MONOCYTES 3 % (0-5); NEUTROPHILS 60 % (28-66)
[2022-06-21 16:01] LABS: PLATELET ESTIMATE INCREASED (NORMAL)
[2022-06-21] MEDS ORDERED: HYDROMORPHONE HCL 0.5 MG/ 0.5 ML SYRINGE IV PRN (17:30)
[2022-06-21] MEDS ORDERED: medroxyPROGESTERone 5MG TABLET PO ONE (18:00)
[2022-06-21] MEDS ORDERED: KETOROLAC 30 MG/ML 1ML VIAL IV ONE (18:15)
[2022-06-21] MEDS ORDERED: ramipriL 1.25 MG CAP PO ONE (19:05)
[2022-06-21] MEDS ORDERED: ALBU8.5H INH (19:53)
[2022-06-21] MEDS ORDERED: HOME MED LIST COMPLETE! XX SCH (19:55)
[2022-06-21] MEDS ORDERED: ACETAMINOPHEN 500 MG TAB PO PRN (19:55)
[2022-06-21] MEDS ORDERED: IBUPROFEN 800 MG TAB PO PRN (19:55)
[2022-06-21] MEDS ORDERED: LAMO25TA4 PO (20:05)
[2022-06-21] MEDS: ONDANSETRON 4MG 2ML VIAL IV PRN (20:47)
[2022-06-21] MEDS: LR 1,000 ML IV SCH (20:47)
[2022-06-21] MEDS ORDERED: ATORVASTATIN 10 MG TAB PO SCH (21:00)
[2022-06-21] MEDS ORDERED: lamoTRIgine 25MG TAB PO SCH (21:00)
[2022-06-21 21:25] VITALS: BP 129/60
[2022-06-21 22:33] LABS: HEMATOCRIT 33.7 % (36.0-47.0); MEAN CORPUSCULAR HEMOGLOBIN 30.3 pg (27.0-33.0); MEAN CORPUSCULAR HGB CONC 33.2 g/dl (32.0-36.5); MEAN CORPUSCULAR VOLUME 91.1 fl (80.0-96.0); WHITE BLOOD COUNT 12.7 10^3/uL (4.0-10.0)
[2022-06-21 22:47] LABS: HEMOGLOBIN 11.2 g/dl (12.0-15.5); PLATELET COUNT, AUTOMATED 362 10^3/uL (150-450)
[2022-06-21 23:24] VITALS: BP 134/68
[2022-06-22] VITALS: BP 144/65
[2022-06-22] MEDS ORDERED: diphenhydrAMINE 25MG CAP PO PRN (00:05)
[2022-06-22] MEDS: medroxyPROGESTERone 5MG TABLET PO SCH ×3 (00:30→15:21)
[2022-06-22] MEDS: ONDANSETRON 4MG 2ML VIAL IV PRN (03:07)
[2022-06-22 04:00] VITALS: BP 135/82
[2022-06-22] MEDS: IBUPROFEN 600MG TAB PO PRN ×2 (04:28→10:33)
[2022-06-22] MEDS: LR 1,000 ML IV SCH (04:29)
[2022-06-22 05:26] LABS: HEMATOCRIT 32.6 % (36.0-47.0); HEMOGLOBIN 10.7 g/dl (12.0-15.5); MEAN CORPUSCULAR HEMOGLOBIN 30.1 pg (27.0-33.0); MEAN CORPUSCULAR HGB CONC 32.8 g/dl (32.0-36.5); MEAN CORPUSCULAR VOLUME 91.6 fl (80.0-96.0); PLATELET COUNT, AUTOMATED 338 10^3/uL (150-450); RED BLOOD COUNT 3.56 10^6/uL (4.00-5.40); WHITE BLOOD COUNT 11.6 10^3/uL (4.0-10.0)
[2022-06-22 08:00] VITALS: BP 116/55
[2022-06-22 10:45] LABS: HEMATOCRIT 34.7 % (36.0-47.0); HEMOGLOBIN 11.5 g/dl (12.0-15.5); MEAN CORPUSCULAR HEMOGLOBIN 30.3 pg (27.0-33.0); MEAN CORPUSCULAR HGB CONC 33.1 g/dl (32.0-36.5); MEAN CORPUSCULAR VOLUME 91.6 fl (80.0-96.0); PLATELET COUNT, AUTOMATED 348 10^3/uL (150-450); RED BLOOD COUNT 3.79 10^6/uL (4.00-5.40); WHITE BLOOD COUNT 10.9 10^3/uL (4.0-10.0)
[2022-06-22 11:11] LABS: BLOOD UREA NITROGEN 10 MG/DL (9-23); CALCIUM LEVEL 8.6 MG/DL (8.5-10.1); CARBON DIOXIDE LEVEL 27 MMOL/L (20-31); CHLORIDE LEVEL 103 MMOL/L (98-107); CREATININE FOR GFR 0.76 MG/DL (0.55-1.30); GLOMERULAR FILTRATION RATE > 60.0 (>60); GLUCOSE, FASTING 134 MG/DL (60-100); POTASSIUM SERUM 4.1 MMOL/L (3.5-5.1); SODIUM LEVEL 139 MMOL/L (136-145)
[2022-06-22] MEDS ORDERED: MEDR5TAB3 PO ×2 (11:15→12:49)
== END 2022-06-22 15:44 | disposition home or self-care (01) ==
LOC: M ED 14:03 → M ED INP 19:53 → M PED 21:25
PROVIDERS: ADMIT Obstetrics & Gynecology; ATTEND Obstetrics & Gynecology
DX: N92.0 Excessive and frequent menstruation with regular cycle (principal); E28.2 Polycystic ovarian syndrome; C57.01 Malignant neoplasm of right fallopian tube; C57.02 Malignant neoplasm of left fallopian tube; F31.81 Bipolar II disorder; E11.9 Type 2 diabetes mellitus without complications; I10 Essential (primary) hypertension; Z79.899 Other long term (current) drug therapy; Z79.1 Long term (current) use of non-steroidal anti-inflammatories (NSAID)
CPT/HCPCS: 36415; 74177; 76830; 76856; 80047; 80048; 84702; 85025; 85027; 86850; 86900; 86901; 87631; 93005; 93976; 96361; 96374; 96375; 96376; 99285; J1170; J1885; J2270; J2405

== ENCOUNTER 2022-07-26 09:21 | Emergency (ER) | payer OTHER ==
[~2022-07-26] VITALS: Ht 170.2 cm; Wt 128.1 kg
[~2022-07-26 09:21] MED LIST changes: +ALBU8.5H INH; +LAMO25TA4 PO; +MEDR5TAB3 PO; -metFORMIN XR 500MG TAB *GLUCOPHAGE XR PO SCH
[2022-07-26] MEDS ORDERED: ACET-683 PO (09:43)
[2022-07-26] MEDS ORDERED: IBUP200C25 PO (09:43)
[2022-07-26] MEDS ORDERED: NS 1,000 ML IV ONE ×2 (10:40→11:15)
[2022-07-26] MEDS ORDERED: KETOROLAC 30 MG/ML 1ML VIAL IV ONE (10:50)
[2022-07-26 10:55] LABS: BASO # 0.1 10^3/uL (0.0-0.2); BASO % 0.5 % (0.0-1.0); EOS # 0.2 10^3/uL (0.0-0.5); EOS % 1.6 % (0.0-3.0); HEMATOCRIT 33.9 % (36.0-47.0); HEMOGLOBIN 10.8 g/dl (12.0-15.5); LYMPH # 4.1 10^3/uL (1.5-5.0); LYMPH % 32.5 % (24.0-44.0); MEAN CORPUSCULAR HEMOGLOBIN 28.6 pg (27.0-33.0); MEAN CORPUSCULAR HGB CONC 31.9 g/dl (32.0-36.5); MEAN CORPUSCULAR VOLUME 89.9 fl (80.0-96.0); MONO # 0.4 10^3/uL (0.0-0.8); MONO % 2.9 % (2.0-8.0); NEUTROPHILS # 7.8 10^3/uL (1.5-8.5); NEUTROPHILS % 61.9 % (36.0-66.0); PLATELET COUNT, AUTOMATED 603 10^3/uL (150-450); RED BLOOD COUNT 3.77 10^6/uL (4.00-5.40); WHITE BLOOD COUNT 12.5 10^3/uL (4.0-10.0)
[2022-07-26 11:34] LABS: RSV AMPLIFICATION NEGATIVE (NEGATIVE)
[2022-07-26] MEDS: MORPHINE 2 MG/ML 1ML VIAL IV PRN ×2 (12:39→14:11)
[2022-07-26] MEDS ORDERED: ONDANSETRON 4MG 2ML VIAL IV ONE ×2 (12:50→14:10)
[2022-07-26 13:03] LABS: INR 0.88; PROTHROMBIN TIME 12.1 SECONDS (12.5-14.5)
[2022-07-26 13:04] LABS: PARTIAL THROMBOPLASTIN TIME 26.6 SECONDS (24.8-34.2)
[2022-07-26 15:17] LABS: PERCENT SATURATION 5.6 % (13.2-45.0)
[2022-07-26] MEDS ORDERED: KETO10TAB PO (15:31)
[2022-07-26 15:57] VITALS: BP 159/67
== END 2022-07-26 16:07 | disposition home or self-care (01) ==
LOC: M ED 09:21
DX: N93.9 Abnormal uterine and vaginal bleeding, unspecified (principal); R10.84 Generalized abdominal pain; R11.0 Nausea; R19.7 Diarrhea, unspecified; R00.0 Tachycardia, unspecified; E11.9 Type 2 diabetes mellitus without complications; Z87.42 Personal history of other diseases of the female genital tract; M25.552 Pain in left hip; F31.9 Bipolar disorder, unspecified; Z79.84 Long term (current) use of oral hypoglycemic drugs; Z79.899 Other long term (current) drug therapy; Z79.51 Long term (current) use of inhaled steroids
CPT/HCPCS: 76830; 76856; 80047; 82728; 83550; 84702; 85025; 85610; 85730; 86850; 86900; 86901; 87631; 93005; 93976; 96361; 96374; 96375; 96376; 99285; J1885; J2270; J2405

== ENCOUNTER 2022-08-23 05:57 | Day surgery (SDC) | payer OTHER ==
[~2022-08-23] VITALS: Ht 170.2 cm; Wt 126.6 kg
[~2022-08-23 05:57] MED LIST changes: +ACET-683 PO; +IBUP200C25 PO; +KETO10TAB PO; +PERC10TA26 PO; +TRAN650T PO
[2022-08-23 06:35] LABS: HEMATOCRIT 25.1 % (36.0-47.0); HEMOGLOBIN 7.4 g/dl (12.0-15.5)
[2022-08-23 06:52] LABS: BLOOD UREA NITROGEN 12 MG/DL (9-23); CALCIUM LEVEL 8.6 MG/DL (8.5-10.1); CARBON DIOXIDE LEVEL 26 MMOL/L (20-31); CHLORIDE LEVEL 107 MMOL/L (98-107); CREATININE FOR GFR 0.92 MG/DL (0.55-1.30); GLOMERULAR FILTRATION RATE > 60.0 (>60); GLUCOSE, FASTING 143 MG/DL (60-100); POTASSIUM SERUM 4.2 MMOL/L (3.5-5.1); SODIUM LEVEL 140 MMOL/L (136-145)
[2022-08-23] MEDS ORDERED: fentaNYL 100 MCG/2 ML INJECTION As Ordered ONE (06:52)
[2022-08-23] MEDS ORDERED: MIDAZOLAM INJ 2MG/2ML VIAL As Ordered ONE (06:53)
[2022-08-23] MEDS ORDERED: ONDANSETRON 4MG 2ML VIAL As Ordered ONE (06:54)
[2022-08-23] MEDS ORDERED: LIDOCAINE 2% 100MG/5ML SDV (FOR ANES.) As Ordered ONE (06:54)
[2022-08-23] MEDS ORDERED: propofoL 200 MG/20 ML VIAL As Ordered ONE ×2 (06:54→07:56)
[2022-08-23] MEDS ORDERED: LEVONORGESTREL 52MG (MIRENA) IUD As Ordered ONE (07:14)
[2022-08-23] MEDS ORDERED: LIDOCAINE 1% SDV 30ML VIAL As Ordered ONE (07:14)
[2022-08-23] MEDS ORDERED: LR 1,000 ML IV SCH ×2 (07:30→08:45)
[2022-08-23] MEDS ORDERED: ALBUTEROL 6.7GM INHALER **FOR ANES. CART/OMNICELL ONLY As Ordered ONE (08:17)
[2022-08-23] MEDS ORDERED: SUGAMMADEX SODIUM 500 MG/5 ML VIAL (BRIDION) As Ordered ONE (08:31)
[2022-08-23] MEDS ORDERED: KETOROLAC 60MG 2ML VIAL As Ordered ONE (08:33)
[2022-08-23] MEDS ORDERED: ONDANSETRON 4MG 2ML VIAL IV PRN (08:45)
[2022-08-23] MEDS ORDERED: METOCLOPRAMIDE INJ 10MG/2ML VIAL IV PRN (08:45)
[2022-08-23] MEDS ORDERED: ROCURONIUM BROMIDE 50MG/5ML VIAL As Ordered ONE (09:03)
[2022-08-23] MEDS: fentaNYL 100 MCG/2 ML INJECTION IV PRN ×4 (09:21→09:48)
[2022-08-23] MEDS: oxyCODONE 5MG TAB PO PRN ×2 (09:23→10:36)
[2022-08-23] MEDS ORDERED: oxyCODONE 5MG TAB PO ONE (09:55)
[2022-08-23] MEDS: HYDROMORPHONE HCL 0.5 MG/ 0.5 ML SYRINGE IV PRN ×4 (09:57→10:28)
[2022-08-23] MEDS ORDERED: METOCLOPRAMIDE INJ 10MG/2ML VIAL IV ONE (15:00)
[2022-08-23 16:30] VITALS: BP 130/73
== END 2022-08-23 16:45 | disposition home or self-care (01) ==
LOC: M SDC 05:57
PROVIDERS: ATTEND Obstetrics & Gynecology
DX: N84.0 Polyp of corpus uteri (principal); N93.9 Abnormal uterine and vaginal bleeding, unspecified; E11.9 Type 2 diabetes mellitus without complications; F41.9 Anxiety disorder, unspecified; F32.A Depression, unspecified; F43.10 Post-traumatic stress disorder, unspecified; J45.901 Unspecified asthma with (acute) exacerbation; Z79.899 Other long term (current) drug therapy; Z79.84 Long term (current) use of oral hypoglycemic drugs
CPT/HCPCS: 36415; 58300; 58558; 80048; 85014; 85018; 88305; J1100; J1170; J1885; J2250; J2405; J2765; J3010; J7298